=== PATIENT | female | born 1960 | race Caucasian/White ===

== ENCOUNTER 2020-07-27 13:21 | Outpatient (REF) | payer MEDICARE, OTHER, SELFPAY ==
[2020-07-27 14:40] LABS: MANUAL DIFF FLAG NO
[2020-07-27 14:47] LABS: Basophils Percent Auto 0.4 % (0-2); Eosinophils Absolute Auto 0.1 X10*3/uL (0.0-0.4); Eosinophils Percent Auto 1.5 % (0-4); Hematocrit 38.8 % (37-47); Imm Gran Abs Auto 0.01 X10*3/uL (0.00-0.03); Imm Gran Pct Auto 0.1 % (0.0-0.4); Lymphocytes Absolute Auto 2.6 X10*3/uL (1.2-4.9); Lymphocytes Percent Auto 36.5 % (20-40); Mean Corpuscular HGB Conc 33.5 g/dl (31.0-35.0); Mean Corpuscular Hemoglobin 30.4 pg (27.0-33.0); Mean Corpuscular Volume 90.7 fL (80-98); Mean Platelet Volume 8.7 fL (9.4-12.3); Monocytes Absolute Auto 0.7 X10*3/uL (0.1-1.2); Neutrophils Absolute Auto 3.7 X10*3/uL (2.0-8.3); Neutrophils Percent Auto 51.5 % (45-73); Platelet Count 352 X10*3/uL (160-400); Red Blood Count 4.28 X10*6/uL (4.20-5.50); White Blood Count 7.1 X10*3/uL (4.8-10.8)
[2020-07-27 15:11] LABS: Alanine Aminotransferase 65 U/L (0-31); Albumin Level 4.1 g/dL (3.5-5.0); Alkaline Phosphatase 145 U/L (39-117); Anion Gap 14 (12-20); Aspartate Amino Transferase 139 U/L (5-31); Bilirubin Total 0.7 mg/dL (0.0-1.0); Blood Urea Nitrogen 6 mg/dL (9-16); Calcium 8.4 mg/dL (8.4-10.2); Carbon Dioxide 31 mmol/L (22-29); Chloride 95 mmol/L (96-108); Cholesterol 156 mg/dL; Estimated Glomerular Filt Rate > 60; Glucose Random 92 mg/dL (60-115); HDL Cholesterol 52 mg/dL; Potassium 2.9 mmol/l (3.3-5.1); Sodium 137 mmol/L (135-145); Total Protein 6.8 g/dL (6.5-8.0); Triglycerides 429 mg/dL
[2020-07-28 08:23] LABS: ~HepC Num1 0.06 S/CO (0.00-0.79); ~Hepatitis C Antibody Nonreactive (Nonreactive)
== END 2020-07-27 13:22 | disposition home or self-care (01) ==
LOC: HO.LAB 13:21
PROVIDERS: PCP Internal Medicine; Visit Provider Internal Medicine
DX: F10.11 Alcohol abuse, in remission (principal); R74.01 Elevation of levels of liver transaminase levels; F17.200 Nicotine dependence, unspecified, uncomplicated; R10.33 Periumbilical pain
CPT/HCPCS: 36415; 80053; 80061; 85025; 86803

== ENCOUNTER 2020-08-17 13:00 | Outpatient (REF) | payer MEDICARE, OTHER, SELFPAY ==
--- NOTE | 2020-08-17 13:05 | CT_ITS ---
EXAMINATION: CT HEAD WITHOUT CONTRAST CLINICAL INFORMATION: Headache. COMPARISON: None TECHNIQUE: Contiguous axial imaging was performed from the skull base to vertex without intravenous administration of contrast. This CT examination was performed using dose optimization techniques as appropriate, variously including the following: *Automated exposure control *Adjustment of mA and/or kV according to patient size (this includes techniques or standardized protocols for targeted exams where dose is matched to indication/reason for exam; i.e. extremities or head) *Use of iterative reconstruction technique DLP: 620 mGy-cm FINDINGS: There is no evidence of acute intracranial hemorrhage or territorial infarction. No abnormal mass effect or midline shift is seen. Vivas to white matter differentiation is well preserved. No extra-axial fluid collections are identified. The ventricles are normal in size. There is no abnormal attenuation within the brain parenchyma. The osseous structures and soft tissues are normal. The mastoid air cells and visualized portions of the paranasal sinuses are well aerated. CT/CT head/brain wo con IMPRESSION: No acute intracranial process seen.
== END 2020-08-17 13:01 | disposition home or self-care (01) ==
LOC: HO.CT 13:00
PROVIDERS: Visit Provider Internal Medicine
DX: R51.9 Headache, unspecified (principal)
CPT/HCPCS: 70450

== ENCOUNTER 2020-08-23 14:42 | Outpatient (REF) | payer MEDICARE, OTHER, SELFPAY ==
[2020-08-23 16:16] LABS: Alanine Aminotransferase 75 U/L (0-31); Albumin Level 4.5 g/dL (3.5-5.0); Alkaline Phosphatase 189 U/L (39-117); Anion Gap 15 (12-20); Aspartate Amino Transferase 234 U/L (5-31); Bilirubin Total 0.8 mg/dL (0.0-1.0); Blood Urea Nitrogen 7 mg/dL (9-16); Calcium 8.5 mg/dL (8.4-10.2); Carbon Dioxide 28 mmol/L (22-29); Chloride 94 mmol/L (96-108); Cholesterol 224 mg/dL; Estimated Glomerular Filt Rate > 60; Glucose Random 105 mg/dL (60-115); HDL Cholesterol 47 mg/dL; Potassium 3.6 mmol/l (3.3-5.1); Sodium 133 mmol/L (135-145); Total Protein 7.4 g/dL (6.5-8.0); Triglycerides 1143 mg/dL
== END 2020-08-23 14:43 | disposition home or self-care (01) ==
LOC: HO.LAB 14:42
PROVIDERS: PCP Internal Medicine; Visit Provider Internal Medicine
DX: E78.1 Pure hyperglyceridemia (principal); E87.6 Hypokalemia; F10.159 Alcohol abuse with alcohol-induced psychotic disorder, unspecified; R11.2 Nausea with vomiting, unspecified; R51.9 Headache, unspecified
CPT/HCPCS: 36415; 80053; 80061

== ENCOUNTER 2020-10-12 13:26 | Emergency (ER) | payer MEDICARE, OTHER, SELFPAY ==
--- NOTE | ~2020-10-12 | US_ITS ---
EXAMINATION: US ABDOMEN COMPLETE CLINICAL INFORMATION: Abdominal pain. COMPARISON: 03/25/2020 CT scan TECHNIQUE: Real-time imaging of the abdominal viscera. FINDINGS: PANCREAS: Normal. ABDOMINAL AORTA: The proximal, mid, and distal segments are normal in caliber. INFERIOR VENA CAVA: Visualized portions are normal. LIVER: Diffuse fatty infiltration of the liver but no focal hepatic lesion The liver is normal in size. The liver contour is normal. No focal hepatic lesion. There is no intrahepatic biliary duct dilatation seen. GALLBLADDER: Status post cholecystectomy. COMMON BILE DUCT: Prominent in caliber measuring 1.1 cm in diameter. RIGHT KIDNEY: Normal. No hydronephrosis. No renal calculi or focal parenchymal lesions. The kidney measures 10.9 cm in maximum dimension. LEFT KIDNEY: Normal. No hydronephrosis. No renal calculi or focal parenchymal lesions. The kidney measures 10.2 cm in maximum dimension. SPLEEN: Normal. The spleen measures 8.9 cm in maximum dimension. FREE FLUID: None. US/US abdomen complete IMPRESSION: Diffuse fatty infiltration the liver but no focal hepatic lesion. Common bile duct measures up to 1.1 cm possibly related to patient's postcholecystectomy status.
[2020-10-12 13:30] VITALS: BP 160/100; PULSE 93; RESP 16; TEMP 37.1; O2SAT 98; BMI 21.6
--- NOTE | 2020-10-12 15:54 | ED.ABDPAIN ---
HPI - Abdominal Pain General Chief Complaint: Abdominal Pain <Violeta Arteaga PA-C - Last Filed: 10/12/20 21:24> Stated Complaint: ABD PAIN <ZACHARY Colon Last Filed: 10/12/20 21:24> Time Seen by Provider: 10/12/20 15:34 <ZACHARY Colon Last Filed: 10/12/20 21:24> Source: patient <ZACHARY Colon Last Filed: 10/12/20 21:24> Mode of arrival: ambulatory <ZACHARY Colon Last Filed: 10/12/20 21:24> Limitations: no limitations <ZACHARY Colon Last Filed: 10/12/20 21:24> History of Present Illness HPI narrative: Patient is a 60-year-old female with a past medical history of alcohol use, alcoholic fatty liver, hyperglyceridemia, alcoholic polyneuropathy, Ramona-Caro tear who comes in to the ED complaining of months of nonbloody, not black diarrhea. She also endorses a bloating, nausea and hair loss. She denies vomiting and fevers. She was sent to the emergency department by Dr. Caro, her GI doctor. Patient reports having a colonoscopy 1 year ago which was normal <ZACHARY Colon Last Filed: 10/12/20 21:24> MD elicited complaint: abdominal pain <ZACHARY Colon Last Filed: 10/12/20 21:24> Related Data Home Medications: Previous Rx's Medication Instructions Recorded dicyclomine See Rx Instructions .ROUTE 10/12/20 .COMPLEX PRN #60 cap <ZACHARY Colon Last Filed: 10/12/20 21:24> Allergies/Adverse Reactions: Allergies Allergy/AdvReac Type Severity Reaction Status Date / Time levofloxacin [From LEVAQUIN] Allergy Unknown THROAT Verified 10/12/20 13:35 SWELLS mushroom AdvReac Mild STOMACH Verified 10/12/20 13:35 UPSET <ZACHARY Colon Last Filed: 10/12/20 21:24> Review of Systems Review of Systems Yes all other systems are reviewed and are negative <Violeta Arteaga PA-C - Last Filed: 10/12/20 21:24> Physical Exam Vital Signs: Vital Signs: Last Vital Signs Temp 98 F 10/12/20 20:00 Pulse 88 10/12/20 20:00 Resp 16 10/12/20 20:00 BP 137/88 10/12/20 20:00 Pulse Ox 99 10/12/20 20:00 Body Mass Index 21.6 <Violeta Arteaga PA-C - Last Filed: 10/12/20 21:24> Vital Signs: Last Vital Signs Temp 98 F 10/12/20 20:00 Pulse 88 10/12/20 20:00 Resp 16 10/12/20 20:00 BP 137/88 10/12/20 20:00 Pulse Ox 99 10/12/20 20:00 Body Mass Index 21.6 <Celestina Alexandra NP - Last Filed: 10/12/20 21:56> Const: General: cooperative, healthy appearing, comfortable, no acute distress and well developed <Violeta Arteaga PA-C - Last Filed: 10/12/20 21:24> Orientation/consciousness: patient oriented x3 <Violeta Arteaga PA-C - Last Filed: 10/12/20 21:24> Limitations: no limitations <Violeta Arteaga PA-C - Last Filed: 10/12/20 21:24> HENMT: Head: Yes normal to inspection <Violeta Arteaga PA-C - Last Filed: 10/12/20 21:24> Eyes: General: appearance normal, both eyes and all related structures <Violeta Arteaga PA-C - Last Filed: 10/12/20 21:24> Neck: Neck: Yes normal visual inspection and Yes full ROM <Violeta Arteaga PA-C - Last Filed: 10/12/20 21:24> Resp: Effort & Inspection: normal respiratory effort and able to speak in complete sentences <Violeta Arteaga PA-C - Last Filed: 10/12/20 21:24> Auscultation: clear to auscultation bilaterally <Violeta Arteaga PA-C - Last Filed: 10/12/20 21:24> Cardio: Rate: regular rate <Violeta Arteaga PA-C - Last Filed: 10/12/20 21:24> Rhythm: regular rhythm <Violeta Arteaga PA-C - Last Filed: 10/12/20 21:24> Heart sounds: normal S1 and S2 <Violeta Arteaga PA-C - Last Filed: 10/12/20 21:24> GI: Inspection: Yes normal to inspection <Violeta Arteaga PA-C - Last Filed: 10/12/20 21:24> Palpation (GI): Soft to palpation and Tenderness to palpation present (GI) (Diffuse pain but worse in the left lower quadrant) <Violeta Arteaga PA-C - Last Filed: 10/12/20 21:24> Auscultation: normal bowel sounds <Violeta Arteaga PA-C - Last Filed: 10/12/20 21:24> Skin: General skin exam: no rashes or lesions noted <Violeta Arteaga PA-C - Last Filed: 10/12/20 21:24> Neuro: General: patient oriented x3 <Violeta Arteaga PA-C - Last Filed: 10/12/20 21:24> Extrem: General: Yes normal to inspection <Violeta Arteaga PA-C - Last Filed: 10/12/20 21:24> Course Course Course Narrative: Pt is a 60-year-old female with a past medical history of alcohol use, alcoholic fatty liver, hyperglyceridemia, alcoholic polyneuropathy, Ramona-Caro tear who comes in to the ED complaining of months of nonbloody, not black diarrhea. Physical exam was unremarkable sans for mild diffuse abdominal pain, worse in the left lower quadrant. Labs are all within normal limits except potassium is 2.9, will replete, UA negative, US pending. 10/12/2020 9pm Sign out to Celestina Alexandra NP <Violeta Arteaga PA-C - Last Filed: 10/12/20 21:24> 9:55 p.m. potassium repleted, repeat potassium 4.2. Plan of care to discharge per prior providers plan. <Celestina Alexandra NP - Last Filed: 10/12/20 21:56> MDM - Abdominal Pain Differential Diagnosis Differential diagnosis: Likely abdominal pain, acute appendicitis, constipation, diverticulitis, gastroenteritis and pancreatitis <Violeta Arteaga PA-C - Last Filed: 10/12/20 21:24> Lab Data Attestation: I reviewed the patient's lab results. <Violeta Arteaga PA-C - Last Filed: 10/12/20 21:24> Result diagrams: : 10/12/20 16:08 10/12/20 20:09 <Violeta Arteaga PA-C - Last Filed: 10/12/20 21:24> Labs: Lab Results 10/12/20 10/12/20 10/12/20 Range/Units 16:08 16:08 16:08 WBC 7.2 (4.8-10.8) X10*3/uL RBC 3.97 L (4.20-5.50) X10*6/uL Hgb 12.8 (12.0-16.0) g/dl Hct 37.6 (37-47) % MCV 94.7 (80-98) fL MCH 32.2 (27.0-33.0) pg MCHC 34.0 (31.0-35.0) g/dl RDW 13.9 (11.0-16.0) % Plt Count 349 (160-400) X10*3/uL MPV 8.5 L (9.4-12.3) fL Immature Gran % (Auto) 0.1 (0.0-0.4) % Neut % (Auto) 59.3 (45-73) % Lymph % (Auto) 27.6 (20-40) % [place] % (Auto) 11.5 H (2-11) % Eos % (Auto) 1.1 (0-4) % Baso % (Auto) 0.4 (0-2) % Lymph # (Auto) 2.0 (1.2-4.9) X10*3/uL [place] # (Auto) 0.8 (0.1-1.2) X10*3/uL Eos # (Auto) 0.1 (0.0-0.4) X10*3/uL Baso # (Auto) 0.0 (0.0-0.2) X10*3/uL Abs Immat Gran (auto) 0.01 (0.00-0.03) X10*3/uL Absolute Neuts (auto) 4.2 (2.0-8.3) X10*3/uL Absolute Nucleated RBC 0.000 (0.0-0.012) X10*3/uL Nucleated RBC % (auto) 0.0 (0.0-0.2) /100WBC Hold Blue Top SEE NOTE Sodium 136 (135-145) mmol/L Potassium 2.9 L (3.3-5.1) mmol/L Chloride 98 (96-108) mmol/L Carbon Dioxide 27 (22-29) mmol/L Anion Gap 14 (12-20) BUN 9 (9-16) mg/dL Creatinine 0.73 (0.5-1.4) mg/dL Estim Creat Clear Calc 72.8 Estimated GFR > 60 Random Glucose 101 (60-115) mg/dL Calcium 8.7 (8.4-10.2) mg/dL Total Bilirubin 1.0 (0.0-1.0) mg/dL AST 69 H (5-31) U/L ALT 35 H (0-31) U/L Alkaline Phosphatase 90 D (39-117) U/L Total Protein 7.0 (6.5-8.0) g/dL Albumin 4.3 (3.5-5.0) g/dL Triglycerides mg/dL Cholesterol mg/dL LDL Cholesterol, Calc mg/dl HDL Cholesterol mg/dL Amylase (28-100) U/L Lipase 29 (8-78) U/L TSH 2.49 (0.32-4.0) uIU/mL Urine Color Urine Appearance Urine pH (5.0-8.0) Ur Specific [place] (1.005-1.025) Urine Protein (NEG-TRACE) MG/DL Urine Glucose (UA) (NEG) MG/DL Urine Ketones (NEG) MG/DL Urine Blood (NEG) Urine Nitrite (NEG) Ur Leukocyte Esterase (NEG) 10/12/20 10/12/20 10/12/20 Range/Units 16:19 20:09 20:09 WBC (4.8-10.8) X10*3/uL RBC (4.20-5.50) X10*6/uL Hgb (12.0-16.0) g/dl Hct (37-47) % MCV (80-98) fL MCH (27.0-33.0) pg MCHC (31.0-35.0) g/dl RDW (11.0-16.0) % Plt Count (160-400) X10*3/uL MPV (9.4-12.3) fL Immature Gran % (Auto) (0.0-0.4) % Neut % (Auto) (45-73) % Lymph % (Auto) (20-40) % [place] % (Auto) (2-11) % Eos % (Auto) (0-4) % Baso % (Auto) (0-2) % Lymph # (Auto) (1.2-4.9) X10*3/uL [place] # (Auto) (0.1-1.2) X10*3/uL Eos # (Auto) (0.0-0.4) X10*3/uL Baso # (Auto) (0.0-0.2) X10*3/uL Abs Immat Gran (auto) (0.00-0.03) X10*3/uL Absolute Neuts (auto) (2.0-8.3) X10*3/uL Absolute Nucleated RBC (0.0-0.012) X10*3/uL Nucleated RBC % (auto) (0.0-0.2) /100WBC Hold Blue Top Sodium 139 (135-145) mmol/L Potassium 4.2 D (3.3-5.1) mmol/L Chloride 102 (96-108) mmol/L Carbon Dioxide 26 (22-29) mmol/L Anion Gap 15 (12-20) BUN 8 L (9-16) mg/dL Creatinine 0.66 (0.5-1.4) mg/dL Estim Creat Clear Calc 80.5 Estimated GFR > 60 Random Glucose 82 (60-115) mg/dL Calcium 8.8 (8.4-10.2) mg/dL Total Bilirubin (0.0-1.0) mg/dL AST (5-31) U/L ALT (0-31) U/L Alkaline Phosphatase (39-117) U/L Total Protein (6.5-8.0) g/dL Albumin (3.5-5.0) g/dL Triglycerides 97 mg/dL Cholesterol 204 mg/dL LDL Cholesterol, Calc 89 mg/dl HDL Cholesterol 96 D mg/dL Amylase 39 (28-100) U/L Lipase (8-78) U/L TSH (0.32-4.0) uIU/mL Urine Color YELLOW Urine Appearance CLEAR Urine pH 5.5 (5.0-8.0) Ur Specific [place] 1.015 (1.005-1.025) Urine Protein NEG (NEG-TRACE) MG/DL Urine Glucose (UA) NEG (NEG) MG/DL Urine Ketones NEG (NEG) MG/DL Urine Blood NEG (NEG) Urine Nitrite NEG (NEG) Ur Leukocyte Esterase NEG (NEG) <Violeta Arteaag PA-C - Last Filed: 10/12/20 21:24> Lab Results 10/12/20 10/12/20 10/12/20 Range/Units 16:08 16:08 16:08 WBC 7.2 (4.8-10.8) X10*3/uL RBC 3.97 L (4.20-5.50) X10*6/uL Hgb 12.8 (12.0-16.0) g/dl Hct 37.6 (37-47) % MCV 94.7 (80-98) fL MCH 32.2 (27.0-33.0) pg MCHC 34.0 (31.0-35.0) g/dl RDW 13.9 (11.0-16.0) % Plt Count 349 (160-400) X10*3/uL MPV 8.5 L (9.4-12.3) fL Immature Gran % (Auto) 0.1 (0.0-0.4) % Neut % (Auto) 59.3 (45-73) % Lymph % (Auto) 27.6 (20-40) % [place] % (Auto) 11.5 H (2-11) % Eos % (Auto) 1.1 (0-4) % Baso % (Auto) 0.4 (0-2) % Lymph # (Auto) 2.0 (1.2-4.9) X10*3/uL [place] # (Auto) 0.8 (0.1-1.2) X10*3/uL Eos # (Auto) 0.1 (0.0-0.4) X10*3/uL Baso # (Auto) 0.0 (0.0-0.2) X10*3/uL Abs Immat Gran (auto) 0.01 (0.00-0.03) X10*3/uL Absolute Neuts (auto) 4.2 (2.0-8.3) X10*3/uL Absolute Nucleated RBC 0.000 (0.0-0.012) X10*3/uL Nucleated RBC % (auto) 0.0 (0.0-0.2) /100WBC Hold Blue Top SEE NOTE Sodium 136 (135-145) mmol/L Potassium 2.9 L (3.3-5.1) mmol/L Chloride 98 (96-108) mmol/L Carbon Dioxide 27 (22-29) mmol/L Anion Gap 14 (12-20) BUN 9 (9-16) mg/dL Creatinine 0.73 (0.5-1.4) mg/dL Estim Creat Clear Calc 72.8 Estimated GFR > 60 Random Glucose 101 (60-115) mg/dL Calcium 8.7 (8.4-10.2) mg/dL Total Bilirubin 1.0 (0.0-1.0) mg/dL AST 69 H (5-31) U/L ALT 35 H (0-31) U/L Alkaline Phosphatase 90 D (39-117) U/L Total Protein 7.0 (6.5-8.0) g/dL Albumin 4.3 (3.5-5.0) g/dL Triglycerides mg/dL Cholesterol mg/dL LDL Cholesterol, Calc mg/dl HDL Cholesterol mg/dL Amylase (28-100) U/L Lipase 29 (8-78) U/L TSH 2.49 (0.32-4.0) uIU/mL Urine Color Urine Appearance Urine pH (5.0-8.0) Ur Specific [place] (1.005-1.025) Urine Protein (NEG-TRACE) MG/DL Urine Glucose (UA) (NEG) MG/DL Urine Ketones (NEG) MG/DL Urine Blood (NEG) Urine Nitrite (NEG) Ur Leukocyte Esterase (NEG) 10/12/20 10/12/20 10/12/20 Range/Units 16:19 20:09 20:09 WBC (4.8-10.8) X10*3/uL RBC (4.20-5.50) X10*6/uL Hgb (12.0-16.0) g/dl Hct (37-47) % MCV (80-98) fL MCH (27.0-33.0) pg MCHC (31.0-35.0) g/dl RDW (11.0-16.0) % Plt Count (160-400) X10*3/uL MPV (9.4-12.3) fL Immature Gran % (Auto) (0.0-0.4) % Neut % (Auto) (45-73) % Lymph % (Auto) (20-40) % [place] % (Auto) (2-11) % Eos % (Auto) (0-4) % Baso % (Auto) (0-2) % Lymph # (Auto) (1.2-4.9) X10*3/uL [place] # (Auto) (0.1-1.2) X10*3/uL Eos # (Auto) (0.0-0.4) X10*3/uL Baso # (Auto) (0.0-0.2) X10*3/uL Abs Immat Gran (auto) (0.00-0.03) X10*3/uL Absolute Neuts (auto) (2.0-8.3) X10*3/uL Absolute Nucleated RBC (0.0-0.012) X10*3/uL Nucleated RBC % (auto) (0.0-0.2) /100WBC Hold Blue Top Sodium 139 (135-145) mmol/L Potassium 4.2 D (3.3-5.1) mmol/L Chloride 102 (96-108) mmol/L Carbon Dioxide 26 (22-29) mmol/L Anion Gap 15 (12-20) BUN 8 L (9-16) mg/dL Creatinine 0.66 (0.5-1.4) mg/dL Estim Creat Clear Calc 80.5 Estimated GFR > 60 Random Glucose 82 (60-115) mg/dL Calcium 8.8 (8.4-10.2) mg/dL Total Bilirubin (0.0-1.0) mg/dL AST (5-31) U/L ALT (0-31) U/L Alkaline Phosphatase (39-117) U/L Total Protein (6.5-8.0) g/dL Albumin (3.5-5.0) g/dL Triglycerides 97 mg/dL Cholesterol 204 mg/dL LDL Cholesterol, Calc 89 mg/dl HDL Cholesterol 96 D mg/dL Amylase 39 (28-100) U/L Lipase (8-78) U/L TSH (0.32-4.0) uIU/mL Urine Color YELLOW Urine Appearance CLEAR Urine pH 5.5 (5.0-8.0) Ur Specific [place] 1.015 (1.005-1.025) Urine Protein NEG (NEG-TRACE) MG/DL Urine Glucose (UA) NEG (NEG) MG/DL Urine Ketones NEG (NEG) MG/DL Urine Blood NEG (NEG) Urine Nitrite NEG (NEG) Ur Leukocyte Esterase NEG (NEG) <Celestina Alexandra NP - Last Filed: 10/12/20 21:56> Imaging Data US - abdomen: Attestation: I personally reviewed and interpreted this imaging study as follows: <Violeta Arteaga PA-C - Last Filed: 10/12/20 21:24> My impression: No acute processes <Violeta Arteaga PA-C - Last Filed: 10/12/20 21:24> Radiologist's impression: [address] [id number] ReportSigned Patient: Avani Anderson LMR#: [id number]: [id number]:[id number]/Sex: 60 / FADM Date: 10/12/20Loc: [address]: Ordering Physician: Violeta Arteaga PA-C Date of Service: 10/12/20 Procedure(s): US abdomen complete Accession Number(s): [id number] cc: Violeta Arteaga PA-C~ EXAMINATION: US ABDOMEN COMPLETE CLINICAL INFORMATION: Abdominal pain. COMPARISON: 03/25/2020 CT scan TECHNIQUE: Real-time imaging of the abdominal viscera. FINDINGS: PANCREAS: Normal. ABDOMINAL AORTA: The proximal, mid, and distal segments are normal in caliber. INFERIOR VENA CAVA: Visualized portions are normal. LIVER: Diffuse fatty infiltration of the liver but no focal hepatic lesion The liver is normal in size. The liver contour is normal. No focal hepatic lesion. There is no intrahepatic biliary duct dilatation seen. GALLBLADDER: Status post cholecystectomy. COMMON BILE DUCT: Prominent in caliber measuring 1.1 cm in diameter. RIGHT KIDNEY: Normal. No hydronephrosis. No renal calculi or focal parenchymal lesions. The kidney measures 10.9 cm in maximum dimension. LEFT KIDNEY: Normal. No hydronephrosis. No renal calculi or focal parenchymal lesions. The kidney measures 10.2 cm in maximum dimension. SPLEEN: Normal. The spleen measures 8.9 cm in maximum dimension. FREE FLUID: None. US/US abdomen complete IMPRESSION: Diffuse fatty infiltration the liver but no focal hepatic lesion. Common bile duct measures up to 1.1 cm possibly related to patient's postcholecystectomy status. Dictated By:JANIS OLIVER MDSigned By:<Electronically signed by JANIS OLIVER MD in [place]>10/12/20 1803 DD/ 1553TD/TT: Radiology Supervisor: FLAVIA <Violeta Arteaga PA-C - Last Filed: 10/12/20 21:24> ECG Data Attestation: I personally reviewed and interpreted this ECG as follows: <ZACHARY Colon Last Filed: 10/12/20 21:24> ECG interpretation date: 10/12/20 <ZACHARY Colon Last Filed: 10/12/20 21:24> ECG interpretation time: 18:38 <ZACHARY Colon Last Filed: 10/12/20 21:24> Prior ECG tracings: not available for review <Violeta Arteaga PA-C - Last Filed: 10/12/20 21:24> Interpretation: Sinus rhythm with PACs <ZACHARY Colon Last Filed: 10/12/20 21:24> Discharge Plan Discharge Clinical Impression: Hypokalemia due to excessive gastrointestinal loss of potassium, Abdominal discomfort, generalized <ZACHARY Colon Last Filed: 10/12/20 21:24> Patient Disposition: Home, Self-Care <ZACHARY Colon Last Filed: 10/12/20 21:24> Instructions: Irritable Bowel Syndrome (ED), Hypokalemia (ED) <Violeta Arteaga PA-C - Last Filed: 10/12/20 21:24> Additional Instructions: Please be sure to follow up with your PCP or GI doctor <Violeta Arteaga PA-C - Last Filed: 10/12/20 21:24> Prescriptions: New dicyclomine 10 mg capsule See Rx Instructions .ROUTE .COMPLEX PRN (Reason: abdominal discomfort) Qty: 60 RF: 0 <Violeta Arteaga PA-C - Last Filed: 10/12/20 21:24> Referrals: Milagros Gutierrez MD [Primary Care Provider] - 2 days <Violeta Arteaga PA-C - Last Filed: 10/12/20 21:24> Interventions: ED Discharge Assessment Last Done: 10/12/20 21:31 <Violeta Arteaga PA-C - Last Filed: 10/12/20 21:24> PMFSH Past Medical History Medical History: Medical History Anxiety Depression ETOH abuse Lower extremity surgery planned Seasonal allergies <Violeta Arteaga PA-C - Last Filed: 10/12/20 21:24> Surgical History: Surgical History Hx of cholecystectomy <Violeta Arteaga PA-C - Last Filed: 10/12/20 21:24> Social History Social History: Social History Alcohol intake: current Alcohol intake frequency: 3 or more drinks per day Alcohol type: hard liquor Smoking Status: Current every day smoker Use of substances other than those prescribed or required for medical reasons: No Advance Directives: No Advance Directives Information Provided: No <Violeta Arteaga PA-C - Last Filed: 10/12/20 21:24>
[2020-10-12 16:02] VITALS: BP 154/97; PULSE 95; RESP 18; O2SAT 97
[2020-10-12 16:16] LABS: MANUAL DIFF FLAG NO
[2020-10-12 16:17] LABS: Basophils Percent Auto 0.4 % (0-2); Eosinophils Absolute Auto 0.1 X10*3/uL (0.0-0.4); Eosinophils Percent Auto 1.1 % (0-4); Hematocrit 37.6 % (37-47); Hemoglobin 12.8 g/dl (12.0-16.0); Imm Gran Abs Auto 0.01 X10*3/uL (0.00-0.03); Imm Gran Pct Auto 0.1 % (0.0-0.4); Lymphocytes Percent Auto 27.6 % (20-40); Mean Corpuscular Hemoglobin 32.2 pg (27.0-33.0); Mean Corpuscular Volume 94.7 fL (80-98); Mean Platelet Volume 8.5 fL (9.4-12.3); Monocytes Absolute Auto 0.8 X10*3/uL (0.1-1.2); Monocytes Percent Auto 11.5 % (2-11); Neutrophils Absolute Auto 4.2 X10*3/uL (2.0-8.3); Neutrophils Percent Auto 59.3 % (45-73); Platelet Count 349 X10*3/uL (160-400); Red Blood Count 3.97 X10*6/uL (4.20-5.50); Red Cell Distribution Width 13.9 % (11.0-16.0); White Blood Count 7.2 X10*3/uL (4.8-10.8)
[2020-10-12 16:32] LABS: Glucose Urine UA NEG (NEG); Leukocyte Esterase Urine NEG (NEG); Nitrite Urine NEG (NEG); PH 5.5 (5.0-8.0); Specific Gravity - Urine 1.015 (1.005-1.025); Urine Blood NEG (NEG); Urine Ketones NEG (NEG); Urine Protein NEG (NEG-TRACE)
[2020-10-12 16:37] LABS: Appearance Urine CLEAR; Color Urine YELLOW
[2020-10-12 16:49] LABS: Alanine Aminotransferase 35 U/L (0-31); Alkaline Phosphatase 90 U/L (39-117); Anion Gap 14 (12-20); Aspartate Amino Transferase 69 U/L (5-31); Blood Urea Nitrogen 9 mg/dL (9-16); Calcium 8.7 mg/dL (8.4-10.2); Carbon Dioxide 27 mmol/L (22-29); Chloride 98 mmol/L (96-108); Creatinine Clr Calc Pharmacy 72.8; Estimated Glomerular Filt Rate > 60; Glucose Random 101 mg/dL (60-115); Lipase 29 U/L (8-78); Sodium 136 mmol/L (135-145)
[2020-10-12 17:08] LABS: TSH reflex Free T4 2.49 uIU/mL (0.32-4.0)
[2020-10-12 17:15] LABS: Albumin Level 4.3 g/dL (3.5-5.0)
[2020-10-12 17:34] LABS: Potassium 2.9 mmol/L (3.3-5.1)
--- NOTE | 2020-10-12 17:35 | ECG_ITS ---
Test Reason : ABDOMINAL PAIN Blood Pressure : / mmHG Vent. Rate : 080 BPM Atrial Rate : 080 BPM P-R Int : 156 ms QRS Dur : 068 ms QT Int : 402 ms P-R-T Axes : 074 046 050 degrees QTc Int : 463 ms Normal sinus rhythm Nonspecific ST abnormality Abnormal ECG When compared with ECG of 21-APR-2019 14:56, T wave inversion no longer evident in Inferior leads T wave amplitude has increased in Anterior leads Referred By: Violeta Arteaga Electronically Signed By:Darryl Wallace
[2020-10-12 18:03] VITALS: BP 145/80; PULSE 91; RESP 18; O2SAT 99
[2020-10-12] MEDS: Potassium Chloride Packet 20 MEQ PACKET 60 MEQ PO (18:07)
[2020-10-12] MEDS: Simethicone 80 MG TAB.CHEW 160 MG PO (18:07)
[2020-10-12 20:00] VITALS: BP 137/88; PULSE 88; RESP 16; TEMP 36.6; O2SAT 99
[2020-10-12] MEDS: Dicyclomine HCl 10 MG CAPSULE 20 MG PO (20:30)
[2020-10-12] MEDS: Ketorolac Tromethamine 15 MG/ML VIAL IV (20:31)
[2020-10-12 20:51] LABS: Amylase 39 U/L (28-100); Cholesterol 204 mg/dL; HDL Cholesterol 96 mg/dL; LDL Cholesterol Calculated 89 mg/dl; Triglycerides 97 mg/dL
[2020-10-12 20:52] LABS: Blood Urea Nitrogen 8 mg/dL (9-16); Calcium 8.8 mg/dL (8.4-10.2); Creatinine Clr Calc Pharmacy 80.5; Estimated Glomerular Filt Rate > 60; Glucose Random 82 mg/dL (60-115)
[2020-10-12 21:11] LABS: Anion Gap 15 (12-20); Carbon Dioxide 26 mmol/L (22-29); Chloride 102 mmol/L (96-108); Potassium 4.2 mmol/L (3.3-5.1); Sodium 139 mmol/L (135-145)
== END 2020-10-12 21:31 | disposition home or self-care (01) ==
PROVIDERS: Physician Assistant; Emergency Provider Emergency Medicine Emergency Medical Services; PCP Internal Medicine
DX: E87.5 Hyperkalemia (principal); K58.9 Irritable bowel syndrome, unspecified; R10.84 Generalized abdominal pain; R79.89 Other specified abnormal findings of blood chemistry; F17.200 Nicotine dependence, unspecified, uncomplicated; Z71.6 Tobacco abuse counseling; Z79.899 Other long term (current) drug therapy
CPT/HCPCS: 36415; 76700; 80048; 80053; 80061; 81003; 82150; 83690; 84443; 85025; 93005; 96360; 99284; J1885

== ENCOUNTER → 2020-11-03 13:51 | Outpatient (BNVA) | payer MEDICARE, OTHER, SELFPAY | PROVIDERS: PCP Internal Medicine; Visit Provider Physician Assistant | DX: M75.102 Unspecified rotator cuff tear or rupture of left shoulder, not specified as traumatic (principal); M12.812 Other specific arthropathies, not elsewhere classified, left shoulder | CPT/HCPCS: 20610; 99202; J1040 ==

== ENCOUNTER 2020-11-18 21:33 | Emergency (ER) | payer MEDICARE, OTHER, SELFPAY ==
--- NOTE | ~2020-11-18 | CT_ITS ---
EXAMINATION: CT ABDOMEN AND PELVIS WITH CONTRAST CLINICAL INFORMATION: Epigastric pain. COMPARISON: 03/25/2020 report only. TECHNIQUE: Contiguous axial thin section helical images of the abdomen and pelvis were performed following the administration of 85 mL of intravenous Omnipaque 3-50. The data set was reformatted in the coronal and sagittal planes and reviewed on an independent workstation. DLP: 425 mGy-cm. FINDINGS: The visualized lung bases are clear. The visualized portions of the heart are unremarkable. The liver is of normal size and attenuation without focal lesions nor intrahepatic biliary ductal dilation.. The patient is status post cholecystectomy. Surgical clips are identified. The spleen, pancreas, adrenal glands are unremarkable. Both kidneys are of normal size and attenuation without hydronephrosis or nephrolithiasis. Following the administration of IV contrast, prompt symmetric nephrograms are displayed. There is no abdominal free fluid. There is neither mesenteric nor retroperitoneal lymphadenopathy. Normal unopacified loops of small and large bowel are identified. A normal appendix is identified. There is no pelvic free fluid. The urinary bladder is unremarkable. There is neither pelvic nor inguinal lymphadenopathy. Bone windows: Neither sclerotic nor lytic bone lesions are identified. CT/CT abdomen pelvis w con IMPRESSION: No acute abdominal or pelvic inflammatory or infectious processes. Automated exposure control (Care Dose) Adjustment of the mA and/or kv according to patient size (this includes techniques or standardized protocols for targeted exams where dose is matched to indication / reason for exam; i.e. extremities or head).
[2020-11-18 21:41] VITALS: BP 162/103; PULSE 110; RESP 18; TEMP 36.7; O2SAT 95; BMI 21.2
[2020-11-18 22:04] LABS: MANUAL DIFF FLAG NO
[2020-11-18 22:07] LABS: Basophils Absolute Auto 0.1 X10*3/uL (0.0-0.2); Basophils Percent Auto 0.6 % (0-2); Eosinophils Absolute Auto 0.1 X10*3/uL (0.0-0.4); Eosinophils Percent Auto 1.1 % (0-4); Hematocrit 40.1 % (37-47); Hemoglobin 13.7 g/dl (12.0-16.0); Imm Gran Abs Auto 0.01 X10*3/uL (0.00-0.03); Imm Gran Pct Auto 0.1 % (0.0-0.4); Lymphocytes Absolute Auto 3.8 X10*3/uL (1.2-4.9); Lymphocytes Percent Auto 46.9 % (20-40); Mean Corpuscular HGB Conc 34.2 g/dl (31.0-35.0); Mean Corpuscular Hemoglobin 30.5 pg (27.0-33.0); Mean Corpuscular Volume 89.3 fL (80-98); Mean Platelet Volume 8.7 fL (9.4-12.3); Monocytes Absolute Auto 0.7 X10*3/uL (0.1-1.2); Monocytes Percent Auto 8.4 % (2-11); Neutrophils Absolute Auto 3.5 X10*3/uL (2.0-8.3); Neutrophils Percent Auto 42.9 % (45-73); Platelet Count 259 X10*3/uL (160-400); Red Blood Count 4.49 X10*6/uL (4.20-5.50); Red Cell Distribution Width 12.1 % (11.0-16.0); White Blood Count 8.1 X10*3/uL (4.8-10.8)
[2020-11-18 22:31] LABS: Ethanol 205 mg/dL
[2020-11-18 22:40] LABS: Alanine Aminotransferase 77 U/L (0-31); Albumin Level 4.1 g/dL (3.5-5.0); Alkaline Phosphatase 159 U/L (39-117); Anion Gap 15 (12-20); Aspartate Amino Transferase 195 U/L (5-31); Bilirubin Direct 0.2 mg/dL (0.0-0.5); Bilirubin Total 0.7 mg/dL (0.0-1.0); Blood Urea Nitrogen 8 mg/dL (9-16); Carbon Dioxide 30 mmol/L (22-29); Chloride 98 mmol/L (96-108); Creatinine Clr Calc Pharmacy 71.8; Estimated Glomerular Filt Rate > 60; Glucose Random 109 mg/dL (60-115); Potassium 3.1 mmol/L (3.3-5.1); Sodium 140 mmol/L (135-145); Total Protein 7.1 g/dL (6.5-8.0)
[2020-11-18 22:50] LABS: Lipase 100 U/L (8-78)
--- NOTE | 2020-11-18 23:17 | PC.NURSE ---
PT TO ROOM WITH C/O MID ABD PAIN AND NAUSEA WHICH STARTED TODAY. PT AWAITING FOR MD FOR EVAL. IV PLACED TO LAC, LABS DRAWN IN WR. NS UP AND RUNNING, SITE INTACT. WILL CONTINUE TO MONITOR PT.
[2020-11-18 23:24] VITALS: BP 139/103; PULSE 82; RESP 15
[2020-11-19] MEDS: 0.9 % Sodium Chloride 1,000 ML 999 ML IV (00:07)
--- NOTE | 2020-11-19 00:07 | ED.GENADULT ---
HPI - General Adult General Chief complaint: Nausea/Vomiting/Diarrhea <VERNA Alfonso Last Filed: 11/19/20 02:42> Stated complaint: Throwing up blood <VERNA Alfonso Last Filed: 11/19/20 02:42> Time Seen by Provider: 11/18/20 23:52 <VERNA Alfonso Last Filed: 11/19/20 02:42> Source: patient <VERNA Alfonso Last Filed: 11/19/20 02:42> Mode of arrival: ambulatory <VERNA Alfonso Last Filed: 11/19/20 02:42> Limitations: no limitations <VERNA Alfonso Last Filed: 11/19/20 02:42> History of Present Illness HPI narrative: Patient presents to the ED complaining abdominal pain an episode of specks of blood after eating food. Patient admits to drinking lot of alcohol also. Patient states burning sensation abdomen going up to esophagus. Patient denies any rectal bleeding. Patient denies recent trauma to the abdomen. Patient denies have large emesis consisting of blood. <VERNA Alfonso Last Filed: 11/19/20 02:42> Related Data Home medications: Previous Rx's Medication Instructions Recorded dicyclomine See Rx Instructions .ROUTE 10/12/20 .COMPLEX PRN #60 cap sucralfate 1 g PO BID 10 Days #20 tab 11/19/20 <VERNA Alfonso Last Filed: 11/19/20 02:42> Allergies/adverse reactions: Allergies Allergy/AdvReac Type Severity Reaction Status Date / Time levofloxacin [From LEVAQUIN] Allergy Unknown THROAT Verified 11/03/20 13:54 SWELLS mushroom AdvReac Mild STOMACH Verified 11/03/20 13:54 UPSET <VERNA Alfonso Last Filed: 11/19/20 02:42> Review of Systems Review of Systems: Yes all other systems are reviewed and are negative <VERNA Alfonso Last Filed: 11/19/20 02:42> Constitutional: Constitutional: Reports as per HPI and Reports no additional constitutional complaints <VERNA Alfonso Last Filed: 11/19/20 02:42> Eyes: Eyes: Reports as per HPI and Reports no additional eye complaints <VERNA Alfonso Last Filed: 11/19/20 02:42> ENT: Reports system reviewed and no additional complaints, except as documented and Reports as per HPI <VERNA Alfonso Last Filed: 11/19/20 02:42> Cardiovascular: Cardiovascular: Reports as per HPI and Reports no additional cardiovascular complaints <VERNA Alofnso Last Filed: 11/19/20 02:42> Respiratory: Respiratory: Reports as per HPI and Reports no additional respiratory complaints <VERNA Alfonso Last Filed: 11/19/20 02:42> Gastrointestinal: Gastrointestinal: Reports as per HPI, Reports no additional gastrointestinal complaints, Reports abdominal pain, Reports heartburn and Reports vomiting <VERNA Alfonso Last Filed: 11/19/20 02:42> Genitourinary: Genitourinary: Reports no additional female genitourinary complaints and Reports as per HPI <VERNA Alfonso Last Filed: 11/19/20 02:42> Musculoskeletal: Musculoskeletal: Reports no additional musculoskeletal complaints and Reports as per HPI <VERNA Alfonso Last Filed: 11/19/20 02:42> Neurologic: Reports system reviewed and no additional complaints, except as documented and Reports as per HPI <VERNA Alfonso Last Filed: 11/19/20 02:42> Psychiatric: Psychiatric: Reports no additional psychiatric complaints and Reports as per HPI <VERNA Alfonso Last Filed: 11/19/20 02:42> Comments: Alcohol on her breath <VERNA Alfonso Last Filed: 11/19/20 02:42> [facility] Past Medical History Medical History: Medical History Anxiety Depression ETOH abuse Lower extremity surgery planned Seasonal allergies <VERNA Alfonso Last Filed: 11/19/20 02:42> Surgical History: Surgical History Hx of cholecystectomy <VERNA Alfonso Last Filed: 11/19/20 02:42> Social History Social History: Social History (Updated 11/03/20 @ 13:55 by NORMA Cantrell) Alcohol intake: current Alcohol intake frequency: 3 or more drinks per day Alcohol type: hard liquor Smoking Status: Current every day smoker Advance Directives: No Advance Directives Information Provided: No Current occupational status: retired <VERNA Alfonso - Last Filed: 11/19/20 02:42> Physical Exam Vital Signs: Vital Signs: Last Vital Signs Temp 98.0 F 11/18/20 21:41 Pulse 82 11/18/20 23:24 Resp 11/18/20 23:24 BP 139/103 H 11/18/20 23:24 Pulse Ox 95 11/18/20 21:41 Body Mass Index 21.2 <VERNA Alfonso - Last Filed: 11/19/20 02:42> Vital Signs: Last Vital Signs Temp 98.0 F 11/18/20 21:41 Pulse 82 11/18/20 23:24 Resp 11/18/20 23:24 BP 139/103 H 11/18/20 23:24 Pulse Ox 95 11/18/20 21:41 Body Mass Index 21.2 <Senait Malcolm MD - Last Filed: 11/19/20 04:51> Const: General: cooperative, healthy appearing, comfortable, no acute distress, well developed, alert and awake <VERNA Alfonso - Last Filed: 11/19/20 02:42> Orientation/consciousness: patient oriented x3 <VERNA Alfonso - Last Filed: 11/19/20 02:42> HENMT: Other: Oral cavity negative for any staining of blood or blood-tinged saliva <VERNA Alfonso Last Filed: 11/19/20 02:42> Head: Yes normal to inspection, Yes No palpable skull fracture present, Yes normocephalic and Yes atraumatic <VERNA Alfonso Last Filed: 11/19/20 02:42> Eyes: General: appearance normal, both eyes and all related structures <VERNA Alfonso Last Filed: 11/19/20 02:42> Neck: Neck: Yes normal visual inspection, Yes full ROM, Yes no lymphadenopathy, Yes no meningeal signs, Yes trachea midline, Yes supple and No tender <VERNA Alfonso Last Filed: 11/19/20 02:42> Chest: Chest palpation & inspection: normal inspection of the chest and normal palpation of entire chest wall <VERNA Alfonso Landry Last Filed: 11/19/20 02:42> Resp: Effort & Inspection: normal respiratory effort and able to speak in complete sentences <VERNA Alfonso Last Filed: 11/19/20 02:42> Auscultation: clear to auscultation bilaterally <VERNA Alfonso Landry Last Filed: 11/19/20 02:42> GI: Inspection: Yes normal to inspection and No abdominal wall ecchymosis <VERNA Alfonso Last Filed: 11/19/20 02:42> Palpation (GI): Soft to palpation, not firm, Tenderness to palpation present (GI) in the epigastrum; not at McBurney's point, not periumbilically, not suprapubicly, Pittman's sign negative, obturator sign negative, psoas sign negative, with no rebound tenderness and Rovsing's sign negative, no guarding and not rigid <VERNA Alfonso Landry Last Filed: 11/19/20 02:42> : Other: Patient refused rectal <VERNA Alfonso Last Filed: 11/19/20 02:42> General: No CVA tenderness and Yes no CVA tenderness <VERNA Alfonso Landry Last Filed: 11/19/20 02:42> Back/Spine/Pelvis: Back: no CVA tenderness, No CVA tenderness and No back tenderness <VERNA Alfonso Last Filed: 11/19/20 02:42> Skin: General skin exam: no rashes or lesions noted and elasticity normal <VERNA Alfonso Last Filed: 11/19/20 02:42> Neuro: General: patient oriented x3, no meningeal signs and CN's II-XI intact bilaterally <VERNA Alfonso Landry Last Filed: 11/19/20 02:42> Cranial nerves: Yes CN's II-XII intact bilaterally <VERNA Alfonso Last Filed: 11/19/20 02:42> Extrem: General: Yes normal to inspection and Yes full ROM <VERNA Alfonso Last Filed: 11/19/20 02:42> Psych: Appearance: grossly normal, well kempt and not disheveled <VERNA Alfonso - Last Filed: 11/19/20 02:42> Course Course Course Narrative: History physical exam indicate alcohol gastritis. Not suspecting Ramona-Caro tear or Boerhaave syndrome. Patient not actively vomiting in the ED. will do labs and give GI cocktail. Patient refused rectal exam. Will send alcohol level. <VERNA Alfonso - Last Filed: 11/19/20 02:42> I received sign-out from VERNA Leon. Patient's CT scan shows no acute pathology. At this time, I discussed the labs and imaging with the patient, states that she feels better. Patient being discharged. <Senait Malcolm MD - Last Filed: 11/19/20 04:51> Reevaluation(s) Reevaluation #1: Alcohol level 205. After receiving GI cocktail patient states still having epigastric pain. Lipase elevated at 100. Elevated liver enzyme. Will send patient for CT scan to check for pancreatitis. Sucralfate added and morphine.Case signed out to Dr. Malcolm <VERNA Alfonso - Last Filed: 11/19/20 02:42> Medical Decision Making MDM Narrative Medical decision making narrative: ALcoholoc gastritis <VERNA Alfonso - Last Filed: 11/19/20 02:42> Lab Data Result diagrams: : 11/18/20 21:57 11/18/20 21:57 <VERNA Alfonso - Last Filed: 11/19/20 02:42> Labs: Lab Results 11/18/20 11/18/20 11/18/20 Range/Units 21:57 21:57 21:57 WBC 8.1 (4.8-10.8) X10*3/uL RBC 4.49 (4.20-5.50) X10*6/uL Hgb 13.7 (12.0-16.0) g/dl Hct 40.1 (37-47) % MCV 89.3 (80-98) fL MCH 30.5 (27.0-33.0) pg MCHC 34.2 (31.0-35.0) g/dl RDW 12.1 (11.0-16.0) % Plt Count 259 D (160-400) X10*3/uL MPV 8.7 L (9.4-12.3) fL Immature Gran % (Auto) 0.1 (0.0-0.4) % Neut % (Auto) 42.9 L (45-73) % Lymph % (Auto) 46.9 H (20-40) % Pratt % (Auto) 8.4 (2-11) % Eos % (Auto) 1.1 (0-4) % Baso % (Auto) 0.6 (0-2) % Lymph # (Auto) 3.8 (1.2-4.9) X10*3/uL Pratt # (Auto) 0.7 (0.1-1.2) X10*3/uL Eos # (Auto) 0.1 (0.0-0.4) X10*3/uL Baso # (Auto) 0.1 (0.0-0.2) X10*3/uL Abs Immat Gran (auto) 0.01 (0.00-0.03) X10*3/uL Absolute Neuts (auto) 3.5 (2.0-8.3) X10*3/uL Absolute Nucleated RBC 0.000 (0.0-0.012) X10*3/uL Nucleated RBC % (auto) 0.0 (0.0-0.2) /100WBC PT (10.8-13.0) SEC INR (0.9-1.1) APTT (24.1-38.0) SEC Sodium 140 (135-145) mmol/L Potassium 3.1 L D (3.3-5.1) mmol/L Chloride 98 (96-108) mmol/L Carbon Dioxide 30 H (22-29) mmol/L Anion Gap 15 (12-20) BUN 8 L (9-16) mg/dL Creatinine 0.74 (0.5-1.4) mg/dL Estim Creat Clear Calc 71.8 Estimated GFR > 60 Random Glucose 109 (60-115) mg/dL Calcium 9.0 (8.4-10.2) mg/dL Total Bilirubin 0.7 (0.0-1.0) mg/dL Direct Bilirubin 0.2 (0.0-0.5) mg/dL AST 195 H (5-31) U/L ALT 77 H (0-31) U/L Alkaline Phosphatase 159 H D (39-117) U/L Total Protein 7.1 (6.5-8.0) g/dL Albumin 4.1 (3.5-5.0) g/dL Lipase 100 H (8-78) U/L Ethyl Alcohol 205 mg/dL 11/19/20 Range/Units 01:50 WBC (4.8-10.8) X10*3/uL RBC (4.20-5.50) X10*6/uL Hgb (12.0-16.0) g/dl Hct (37-47) % MCV (80-98) fL MCH (27.0-33.0) pg MCHC (31.0-35.0) g/dl RDW (11.0-16.0) % Plt Count (160-400) X10*3/uL MPV (9.4-12.3) fL Immature Gran % (Auto) (0.0-0.4) % Neut % (Auto) (45-73) % Lymph % (Auto) (20-40) % Pratt % (Auto) (2-11) % Eos % (Auto) (0-4) % Baso % (Auto) (0-2) % Lymph # (Auto) (1.2-4.9) X10*3/uL Pratt # (Auto) (0.1-1.2) X10*3/uL Eos # (Auto) (0.0-0.4) X10*3/uL Baso # (Auto) (0.0-0.2) X10*3/uL Abs Immat Gran (auto) (0.00-0.03) X10*3/uL Absolute Neuts (auto) (2.0-8.3) X10*3/uL Absolute Nucleated RBC (0.0-0.012) X10*3/uL Nucleated RBC % (auto) (0.0-0.2) /100WBC PT 13.4 H (10.8-13.0) SEC INR 1.1 (0.9-1.1) APTT 33.7 (24.1-38.0) SEC Sodium (135-145) mmol/L Potassium (3.3-5.1) mmol/L Chloride (96-108) mmol/L Carbon Dioxide (22-29) mmol/L Anion Gap (12-20) BUN (9-16) mg/dL Creatinine (0.5-1.4) mg/dL Estim Creat Clear Calc Estimated GFR Random Glucose (60-115) mg/dL Calcium (8.4-10.2) mg/dL Total Bilirubin (0.0-1.0) mg/dL Direct Bilirubin (0.0-0.5) mg/dL AST (5-31) U/L ALT (0-31) U/L Alkaline Phosphatase (39-117) U/L Total Protein (6.5-8.0) g/dL Albumin (3.5-5.0) g/dL Lipase (8-78) U/L Ethyl Alcohol mg/dL <VERNA Alfonso - Last Filed: 11/19/20 02:42> Lab Results 11/18/20 11/18/20 11/18/20 Range/Units 21:57 21:57 21:57 WBC 8.1 (4.8-10.8) X10*3/uL RBC 4.49 (4.20-5.50) X10*6/uL Hgb 13.7 (12.0-16.0) g/dl Hct 40.1 (37-47) % MCV 89.3 (80-98) fL MCH 30.5 (27.0-33.0) pg MCHC 34.2 (31.0-35.0) g/dl RDW 12.1 (11.0-16.0) % Plt Count 259 D (160-400) X10*3/uL MPV 8.7 L (9.4-12.3) fL Immature Gran % (Auto) 0.1 (0.0-0.4) % Neut % (Auto) 42.9 L (45-73) % Lymph % (Auto) 46.9 H (20-40) % Pratt % (Auto) 8.4 (2-11) % Eos % (Auto) 1.1 (0-4) % Baso % (Auto) 0.6 (0-2) % Lymph # (Auto) 3.8 (1.2-4.9) X10*3/uL Pratt # (Auto) 0.7 (0.1-1.2) X10*3/uL Eos # (Auto) 0.1 (0.0-0.4) X10*3/uL Baso # (Auto) 0.1 (0.0-0.2) X10*3/uL Abs Immat Gran (auto) 0.01 (0.00-0.03) X10*3/uL Absolute Neuts (auto) 3.5 (2.0-8.3) X10*3/uL Absolute Nucleated RBC 0.000 (0.0-0.012) X10*3/uL Nucleated RBC % (auto) 0.0 (0.0-0.2) /100WBC PT (10.8-13.0) SEC INR (0.9-1.1) APTT (24.1-38.0) SEC Sodium 140 (135-145) mmol/L Potassium 3.1 L D (3.3-5.1) mmol/L Chloride 98 (96-108) mmol/L Carbon Dioxide 30 H (22-29) mmol/L Anion Gap 15 (12-20) BUN 8 L (9-16) mg/dL Creatinine 0.74 (0.5-1.4) mg/dL Estim Creat Clear Calc 71.8 Estimated GFR > 60 Random Glucose 109 (60-115) mg/dL Calcium 9.0 (8.4-10.2) mg/dL Total Bilirubin 0.7 (0.0-1.0) mg/dL Direct Bilirubin 0.2 (0.0-0.5) mg/dL AST 195 H (5-31) U/L ALT 77 H (0-31) U/L Alkaline Phosphatase 159 H D (39-117) U/L Total Protein 7.1 (6.5-8.0) g/dL Albumin 4.1 (3.5-5.0) g/dL Lipase 100 H (8-78) U/L Ethyl Alcohol 205 mg/dL 11/19/20 Range/Units 01:50 WBC (4.8-10.8) X10*3/uL RBC (4.20-5.50) X10*6/uL Hgb (12.0-16.0) g/dl Hct (37-47) % MCV (80-98) fL MCH (27.0-33.0) pg MCHC (31.0-35.0) g/dl RDW (11.0-16.0) % Plt Count (160-400) X10*3/uL MPV (9.4-12.3) fL Immature Gran % (Auto) (0.0-0.4) % Neut % (Auto) (45-73) % Lymph % (Auto) (20-40) % Pratt % (Auto) (2-11) % Eos % (Auto) (0-4) % Baso % (Auto) (0-2) % Lymph # (Auto) (1.2-4.9) X10*3/uL Pratt # (Auto) (0.1-1.2) X10*3/uL Eos # (Auto) (0.0-0.4) X10*3/uL Baso # (Auto) (0.0-0.2) X10*3/uL Abs Immat Gran (auto) (0.00-0.03) X10*3/uL Absolute Neuts (auto) (2.0-8.3) X10*3/uL Absolute Nucleated RBC (0.0-0.012) X10*3/uL Nucleated RBC % (auto) (0.0-0.2) /100WBC PT 13.4 H (10.8-13.0) SEC INR 1.1 (0.9-1.1) APTT 33.7 (24.1-38.0) SEC Sodium (135-145) mmol/L Potassium (3.3-5.1) mmol/L Chloride (96-108) mmol/L Carbon Dioxide (22-29) mmol/L Anion Gap (12-20) BUN (9-16) mg/dL Creatinine (0.5-1.4) mg/dL Estim Creat Clear Calc Estimated GFR Random Glucose (60-115) mg/dL Calcium (8.4-10.2) mg/dL Total Bilirubin (0.0-1.0) mg/dL Direct Bilirubin (0.0-0.5) mg/dL AST (5-31) U/L ALT (0-31) U/L Alkaline Phosphatase (39-117) U/L Total Protein (6.5-8.0) g/dL Albumin (3.5-5.0) g/dL Lipase (8-78) U/L Ethyl Alcohol mg/dL <Senait Malcolm MD - Last Filed: 11/19/20 04:51> Imaging Data CT scan - abdomen: Radiologist's impression: FINDINGS: The visualized lung bases are clear. The visualized portions of the heart are unremarkable. The liver is of normal size and attenuation without focal lesions nor intrahepatic biliary ductal dilation.. The patient is status post cholecystectomy. Surgical clips are identified. The spleen, pancreas, adrenal glands are unremarkable. Both kidneys are of normal size and attenuation without hydronephrosis or nephrolithiasis. Following the administration of IV contrast, prompt symmetric nephrograms are displayed. There is no abdominal free fluid. There is neither mesenteric nor retroperitoneal lymphadenopathy. Normal unopacified loops of small and large bowel are identified. A normal appendix is identified. There is no pelvic free fluid. The urinary bladder is unremarkable. There is neither pelvic nor inguinal lymphadenopathy. Bone windows: Neither sclerotic nor lytic bone lesions are identified. CT/CT abdomen pelvis w con IMPRESSION: No acute abdominal or pelvic inflammatory or infectious processes. Automated exposure control (Care Dose) Adjustment of the mA and/or kv according to patient size (this includes techniques or standardized protocols for targeted exams where dose is matched to indication / reason for exam; i.e. extremities or head). <Senait Malcolm MD - Last Filed: 11/19/20 04:51> Discharge Plan Discharge Clinical Impression: ETOH abuse, Acute alcoholic gastritis <VERNA Alfonso - Last Filed: 11/19/20 02:42> Patient Disposition: Home, Self-Care <VERNA Alfonso - Last Filed: 11/19/20 02:42> Instructions: Gastritis (ED), Abuse of Alcohol (ED) <VERNA Alfonso - Last Filed: 11/19/20 02:42> Additional Instructions: Return to the ED for worsening abdominal pain, nausea, vomiting, fever, chills, rectal bleeding, vomiting blood, coffee black vomit, fever, chills, or any other concerning symptoms. <VERNA Alfonso - Last Filed: 11/19/20 02:42> Prescriptions: New sucralfate 1 gram tablet 1 g PO BID 10 Days Qty: 20 RF: 0 No Action dicyclomine 10 mg capsule See Rx Instructions .ROUTE .COMPLEX PRN (Reason: abdominal discomfort) Qty: 60 RF: 0 <VERNA Alfonso - Last Filed: 11/19/20 02:42> Referrals: Vidal Caro [Physician] - 2 days (Alcoholic gastritis.) <VERNA Alfonso - Last Filed: 11/19/20 02:42> Print Language: Sammarinese <VERNA Alfonso - Last Filed: 11/19/20 02:42>
[2020-11-19] MEDS: diphenhydrAMINE HCL 50 MG/ML VIAL IVPUSH (00:18)
[2020-11-19] MEDS: Magnesium Hydrox/Alum Hydrox 30 ML ORAL.SUSP PO (00:18)
[2020-11-19] MEDS: Lidocaine HCl Viscous 2 % 15 ML SOLUTION MUCOUS MEM (00:18)
[2020-11-19] MEDS: Famotidine/PF 20 MG/2 ML VIAL IVPUSH (00:19)
[2020-11-19] MEDS: PHENobarb/Hyoscy/Atropine/Scop 10 ML ELIXIR PO (00:19)
[2020-11-19] MEDS: ondansetron HCL 4 MG/2 ML VIAL IVPUSH (00:19)
[2020-11-19 02:16] LABS: INTERNATIONAL NORM RATIO 1.1 (0.9-1.1); Prothrombin Time 13.4 SEC (10.8-13.0)
[2020-11-19 02:19] LABS: Partial Thromboplastin Time 33.7 SEC (24.1-38.0)
[2020-11-19] MEDS: Sucralfate Oral Suspension 1 GM/10 ML ORAL.SUSP PO (02:46)
[2020-11-19] MEDS: Potassium Chloride Packet 20 MEQ PACKET 40 MEQ PO (02:46)
[2020-11-19] MEDS: Morphine Sulfate 2 MG/ML CARTRIDGE IVPUSH (02:47)
[2020-11-19] MEDS: iohexoL 350 MG/ML 100 ML INFUS..BTL 65 ML IV (03:58)
== END 2020-11-19 05:25 | disposition home or self-care (01) ==
PROVIDERS: Physician Assistant; Emergency Provider Emergency Medicine; PCP Internal Medicine
DX: K29.20 Alcoholic gastritis without bleeding (principal); F10.129 Alcohol abuse with intoxication, unspecified; Y90.7 Blood alcohol level of 200-239 mg/100 ml; R10.13 Epigastric pain; R11.2 Nausea with vomiting, unspecified; F17.200 Nicotine dependence, unspecified, uncomplicated; Z79.899 Other long term (current) drug therapy; Z71.6 Tobacco abuse counseling
CPT/HCPCS: 36415; 74177; 80053; 80076; 80320; 82248; 83690; 85025; 85610; 85730; 96360; 96361; 96365; 96375; 99284; J1200; J2270; J2405; Q9967

== ENCOUNTER 2020-11-26 11:06 | Outpatient (REF) | payer MEDICARE, OTHER, SELFPAY ==
[2020-11-26 12:47] LABS: Alanine Aminotransferase 41 U/L (0-31); Albumin Level 4.5 g/dL (3.5-5.0); Alkaline Phosphatase 155 U/L (39-117); Anion Gap 16 (12-20); Aspartate Amino Transferase 93 U/L (5-31); Bilirubin Total 1.9 mg/dL (0.0-1.0); Blood Urea Nitrogen 2 mg/dL (9-16); Calcium 9.4 mg/dL (8.4-10.2); Carbon Dioxide 32 mmol/L (22-29); Chloride 92 mmol/L (96-108); Cholesterol 157 mg/dL; Estimated Glomerular Filt Rate > 60; Glucose Random 111 mg/dL (60-115); HDL Cholesterol 72 mg/dL; LDL Cholesterol Calculated 60 mg/dl; Potassium 2.6 mmol/L (3.3-5.1); Sodium 137 mmol/L (135-145); Total Protein 7.4 g/dL (6.5-8.0); Triglycerides 129 mg/dL
== END 2020-11-26 11:07 | disposition home or self-care (01) ==
LOC: HO.LAB 11:06
PROVIDERS: PCP Internal Medicine; Visit Provider Internal Medicine
DX: E78.1 Pure hyperglyceridemia (principal); G62.1 Alcoholic polyneuropathy; M25.512 Pain in left shoulder; R10.30 Lower abdominal pain, unspecified; R19.7 Diarrhea, unspecified
CPT/HCPCS: 36415; 80053; 80061

== ENCOUNTER 2020-12-24 09:47 | Outpatient (REF) | payer MEDICARE, OTHER, SELFPAY ==
[2020-12-24 11:02] LABS: MANUAL DIFF FLAG NO
[2020-12-24 11:12] LABS: Basophils Absolute Auto 0.1 X10*3/uL (0.0-0.2); Basophils Percent Auto 0.7 % (0-2); Eosinophils Absolute Auto 0.2 X10*3/uL (0.0-0.4); Eosinophils Percent Auto 3.1 % (0-4); Hematocrit 42.9 % (37-47); Hemoglobin 13.8 g/dl (12.0-16.0); Imm Gran Abs Auto 0.02 X10*3/uL (0.00-0.03); Imm Gran Pct Auto 0.3 % (0.0-0.4); Lymphocytes Absolute Auto 2.2 X10*3/uL (1.2-4.9); Lymphocytes Percent Auto 32.3 % (20-40); Mean Corpuscular HGB Conc 32.2 g/dl (31.0-35.0); Mean Corpuscular Hemoglobin 29.7 pg (27.0-33.0); Mean Corpuscular Volume 92.3 fL (80-98); Mean Platelet Volume 8.9 fL (9.4-12.3); Monocytes Absolute Auto 0.9 X10*3/uL (0.1-1.2); Monocytes Percent Auto 12.9 % (2-11); Neutrophils Absolute Auto 3.4 X10*3/uL (2.0-8.3); Neutrophils Percent Auto 50.7 % (45-73); Platelet Count 523 X10*3/uL (160-400); Red Blood Count 4.65 X10*6/uL (4.20-5.50); White Blood Count 6.7 X10*3/uL (4.8-10.8)
[2020-12-24 11:33] LABS: Alanine Aminotransferase 22 U/L (0-31); Albumin Level 4.7 g/dL (3.5-5.0); Alkaline Phosphatase 82 U/L (39-117); Anion Gap 15 (12-20); Aspartate Amino Transferase 28 U/L (5-31); Bilirubin Total 1.2 mg/dL (0.0-1.0); Blood Urea Nitrogen 8 mg/dL (9-16); Carbon Dioxide 30 mmol/L (22-29); Chloride 99 mmol/L (96-108); Estimated Glomerular Filt Rate > 60; Glucose Random 107 mg/dL (60-115); Potassium 3.7 mmol/L (3.3-5.1); Sodium 140 mmol/L (135-145); Total Protein 7.4 g/dL (6.5-8.0)
== END 2020-12-24 09:48 | disposition home or self-care (01) ==
LOC: HO.LAB 09:47
PROVIDERS: PCP Internal Medicine; Visit Provider Internal Medicine
DX: R10.13 Epigastric pain (principal); E87.6 Hypokalemia; K29.21 Alcoholic gastritis with bleeding; R74.01 Elevation of levels of liver transaminase levels
CPT/HCPCS: 36415; 80053; 85025

== ENCOUNTER 2021-01-06 08:34 | Outpatient (REF) | payer MEDICARE, OTHER, SELFPAY | END 2021-01-06 08:35 | disposition home or self-care (01) | LOC: HO.HMGCX 08:34 | PROVIDERS: Visit Provider Internal Medicine | DX: Z13.89 Encounter for screening for other disorder (principal) ==

== ENCOUNTER 2021-01-10 10:02 | Outpatient (RCR) | payer MEDICARE, OTHER, SELFPAY ==
--- NOTE | 2021-01-10 10:58 | MHC.PT.EP ---
[facility] [place] Office [place] Office [place] Office [address] [address] [phone] F: [phone] F: [phone] F: [phone] F: [phone] Physical Therapy Plan of Care Date of Evaluation: Date of Surgery: N/A Diagnosis: M75.102 unspecified rotator cuff tear or rupture of left shoulder, not traumatic M12.812 other specific arthropathies, not elsewhere classified, left shoulder Assessment: pt presents to physical therapy w/ signs, symptoms, and imagin consistent w/ RTC tear. pt presents to physical therapy with pain, decreased range of motion, decreased strength, impaired functional mobility, and impaired postural awareness. pt is a good candidate for skilled PT due to age, potential remediation of impairments, typical disease/condition progression and prognosis, comorbidities, and motivation. pt would benefit from tailored strengthening and stretching exercise program, functional training, postural re-training, neuromuscular re-education, modalities as needed for pain, equipment safety demonstration. Frequency and Duration: The patient will be seen 2x/wk for 4 wks Short Term Goals: pt will be I w/ HEP to promote self-management of condition. pt will improve L shoulder flexion by 15 degrees to promote ease in reaching for objects on higher shelves. Jail Goals: pt will report <1/10 L shoulder pain w/ overhead elevation to promote pain-free return to work-related tasks. pt will report a statistically significant improvement in self-reported outcome measure, SPADI, to promote return to PLOF. Treatment Plan: Modalities to reduce pain, spasms and effusion. Manual therapy to restore motion and function. Therapeutic exercise to improve strength and flexibility. Neuromuscular re-education for posture and balance. Therapeutic activities to return to functional activities of daily living. Electronically signed by: Marbella Schaffer PT, DPT Please sign and return to therapist. Thank you for your referral.
--- NOTE | 2021-01-13 18:10 | MHC.PT.DC ---
[facility] [place] Office [place] Office [place] Office [address] [facility] [phone] F: [phone] F: [phone] F: [phone] F: [phone] Physical Therapy Discharge Report Diagnosis: M75.102 unspecified rotator cuff tear or rupture of left shoulder, not traumatic M12.812 other specific arthropathies, not elsewhere classified, left shoulder Date of Surgery: N/A Date of Evaluation: 01/10/21 Date of Discharge: 01/13/21 Treatments to Date: 1 Cancellations to Date: 0 No Shows to Date: 0 Discharge Status: Patient Elected to Stop Discharge Summary: The patient called our office to discharge herself from this physical therapy plan of care. She is satisfied with the exercises given at the evaluation and does not wish to attend any further visits. Electronically signed by: Marbella Schaffer PT, DPT Please sign and return to therapist. Thank you for your referral.
== END 2021-01-13 18:10 | disposition other institution (70) ==
LOC: HO.PT 10:02
PROVIDERS: PCP Internal Medicine; Visit Provider Physician Assistant
DX: M75.102 Unspecified rotator cuff tear or rupture of left shoulder, not specified as traumatic (principal); M12.812 Other specific arthropathies, not elsewhere classified, left shoulder
CPT/HCPCS: 97033; 97110; 97161

== ENCOUNTER 2021-02-09 19:21 | Emergency (ER) | payer MEDICARE, OTHER, SELFPAY ==
--- NOTE | ~2021-02-09 | XR_ITS ---
EXAMINATION: XR ABDOMEN KUB CLINICAL INDICATION: Fecal impaction COMPARISON: CT abdomen pelvis November 19, 2020 TECHNIQUE: AP view of the abdomen. FINDINGS: The bowel gas pattern is normal with no evidence of ileus or obstruction. Small volume of scattered stool in the colon. No evidence of constipation. No unusual soft tissue calcifications are noted. The bones are unremarkable. Surgical clips right upper quadrant of abdomen. Multilevel degenerative spondylosis spine with dextroscoliosis of the thoracolumbar spine. XR/XR KUB IMPRESSION: Small volume of stool in colon. No fecal impaction. Nonobstructive bowel pattern.
[2021-02-09 20:01] VITALS: BP 175/99; PULSE 84; RESP 18; TEMP 36.8; O2SAT 98; BMI 21.4
--- NOTE | 2021-02-09 21:06 | ED_ITS ---
HPI - Abdominal Pain General Chief Complaint: Abdominal Pain Stated Complaint: constipated Time Seen by Provider: 02/09/21 21:06 Source: patient Mode of arrival: ambulatory Limitations: no limitations History of Present Illness HPI narrative: patient complaining of being constipated for last 1 week tried MiraLax Dulcolax without any relief feels impacted feels nauseated not take any narcotics was seen here in 10/24 and 11/24 for similar complaints with abdominal pain with CT scan and ultrasound negative patient been followed with hot punch press operator was told that she has IBS on dicyclomine Related Data Previous Rx's Medication Instructions Recorded dicyclomine See Rx Instructions .ROUTE 10/12/20 .COMPLEX PRN #60 cap sucralfate 1 g PO BID 10 Days #20 tab 11/19/20 lorazepam [Ativan] 1 mg PO BID PRN #20 tab 02/09/21 Allergies Allergy/AdvReac Type Severity Reaction Status Date / Time levofloxacin [From LEVAQUIN] Allergy Unknown THROAT Verified 02/09/21 20:01 SWELLS mushroom AdvReac Mild STOMACH Verified 02/09/21 20:01 UPSET Review of Systems Review of Systems Constitutional : No Weight loss, No Fever, No Chills ENT/Mouth : No sore throat, No Rhinorrhea Eyes: No Eye Pain, No Swelling Cardiovascular : No Chest Pain, no palpitations Respiratory : No Cough, No Sputum, no shortness of breath Gastrointestinal :+ Nausea, No Vomiting, No Diarrhea, No abdominal Pain, no black stools Genitourinary : No Dysuria, No Urinary Frequency Musculoskeletal : No joint pain, No Myalgias, No Joint Swelling Skin : No Skin Lesions, No rash Neuro : No Weakness, No Numbness, No Dizziness, No Headache Psych : No Anxiety/Panic, No Depression Heme/Lymph: No Bruising, No Lymphadenopathy Endocrine : No Polyuria, No Polydipsia All other systems reviewed and are negative Physical Exam Vital Signs: Vital Signs: Last Vital Signs Temp 98.7 F 02/09/21 21:52 Pulse 84 02/09/21 21:52 Resp 18 02/09/21 21:52 BP 163/91 H 02/09/21 21:52 Pulse Ox 96 02/09/21 21:52 Body Mass Index 21.4 Appearance: Alert. Oriented X3. No acute distress. Eyes: PERRLA, No Nystagmus ENT: Pharynx normal. Oral Mucosa moist Neck: Normal inspection. Neck supple. CVS: Normal heart rate and rhythm. Pulses normal. Respiratory: No respiratory distress. Equal air entry bilateral, no wheezing/rales/rhonchi Abdomen: Soft and nontender. Bowel sounds are present, no mass palpable, no CVA tenderness Rectal: soft stool at tip of finger, no fecal impaction Skin: Skin warm and dry. Normal skin color. Normal skin turgor. Extremities: No lower extremity edema. No calf tenderness Neuro: Oriented X 3. No motor deficit. No sensory deficit.No cerebellar signs , cranial nerves II-XII intact MDM - Abdominal Pain MDM Narrative Medical decision making narrative: patient x-ray negative for fecal impaction rectal is empty. Patient has more stress at home some other family member unable to sleep likely the cause of significant abdominal pain flaring of IBS will discharge patient home on Ativan advised to follow with hot punch press operator Discharge Plan Discharge Clinical Impression: Anxiety Irritable bowel syndrome Qualifiers: Irritable bowel syndrome type: with constipation Qualified Code(s): K58.1 - Irritable bowel syndrome with constipation Patient Disposition: Home, Self-Care Instructions: Irritable Bowel Syndrome (ED), Anxiety (ED) Additional Instructions: rest at home drink plenty of fluids, take medication for constipation Follow with hot punch press operator. Take the medication for anxiety as prescribed Prescriptions: New lorazepam [Ativan] 1 mg tablet 1 mg PO BID PRN (Reason: anxiety) Qty: 20 RF: 0 No Action dicyclomine 10 mg capsule See Rx Instructions .ROUTE .COMPLEX PRN (Reason: abdominal discomfort) Qty: 60 RF: 0 sucralfate 1 gram tablet 1 g PO BID 10 Days Qty: 20 RF: 0 PMFSH Past Medical History Medical History Anxiety Depression ETOH abuse Lower extremity surgery planned Seasonal allergies Surgical History Hx of cholecystectomy Social History Social History Alcohol intake: current Alcohol intake frequency: 3 or more drinks per day Alcohol type: hard liquor Advance Directives: No Advance Directives Information Provided: No Patient : No Current occupational status: retired
--- NOTE | 2021-02-09 21:26 | PC.NURSE ---
PT IN STRETCHER WITH MD AT BEDSIDE FOR EVAL. PT AWAITING FOR KUB AND THEN POSSIBLE ENEMIA. PT ALERT, RESPIRATIONS EASY, N/L. SKIN W/D. WILL CONTINUE TO MONITOR PT.
--- NOTE | 2021-02-09 21:30 | PC.NURSE ---
PT TO X-RAY.
[2021-02-09 21:52] VITALS: BP 163/91; PULSE 84; RESP 18; TEMP 37.1; O2SAT 96
--- NOTE | 2021-02-09 22:40 | PC.NURSE ---
PT REFUSING ENEMA. DR FARHEEN FREEMAN. IN ROOM FOR CONVERSING WITH PT AND ON SPEAKER PHONE. PT REQUESTING TO GO HOME. PT DENIES ANY COMPLAINTS AND DRINKING KIESHA YAYA AND EATING CRACKERS W/O DIFFICULTY. PT AWAITING FOR DISPO INSTRUCTIONS. AWAITING FOR PT'S RIDE HOME BY .
[2021-02-09] MEDS: Sodium Phosphate,Mono-Dibasic 133 ML ENEMA PR (22:43)
[2021-02-09] MEDS: LORazepam 1 MG TABLET PO (22:55)
== END 2021-02-09 23:12 | disposition home or self-care (01) ==
PROVIDERS: Emergency Provider Internal Medicine; PCP Internal Medicine
DX: K58.1 Irritable bowel syndrome with constipation (principal); Z63.4 Disappearance and death of family member
CPT/HCPCS: 74018; 99284

== ENCOUNTER 2021-03-18 15:45 | Emergency (ER) | payer MEDICARE, OTHER, SELFPAY ==
--- NOTE | ~2021-03-18 | CT_ITS ---
EXAMINATION: CT CHEST WITHOUT CONTRAST CT ABDOMEN AND PELVIS WITH CONTRAST CLINICAL INFORMATION: Concern for Ramona-Caro tear. Diffuse abdominal pain. COMPARISON: 11/19/2020. TECHNIQUE: Multidetector volumetric imaging was performed through the chest without IV contrast. This is followed by multidetector volumetric imaging of the abdomen and pelvis following the administration of 85 mL of Omnipaque 350 intravenous contrast. Sagittal and coronal reformatted images were obtained on the technologist's workstation. Axial MIP volume rendering provided. This CT examination was performed using dose optimization techniques as appropriate, variously including the following: *Automated exposure control *Adjustment of mA and/or kV according to patient size (this includes techniques or standardized protocols for targeted exams where dose is matched to indication/reason for exam; i.e. extremities or head) *Use of iterative reconstruction technique DLP: 638 mGy-cm. FINDINGS: CHEST: Lungs: The central airways are patent. Mild bronchial wall thickening. No consolidation. No pleural effusion or pneumothorax. There are no pulmonary parenchymal nodules. Mediastinum: The heart is of normal size. There is no pericardial effusion. Central vascular structures are unremarkable. No hilar or mediastinal lymphadenopathy. No pneumomediastinum. Normal appearance of the esophagus. Chest Wall/Axilla: No lymphadenopathy. No chest wall mass. ABDOMEN/PELVIS: Liver, Gallbladder, Biliary Tree: The liver is normal in size, shape, and attenuation. No focal hepatic lesion. Cholecystectomy. There is intrahepatic and extrahepatic biliary ductal dilatation noted. This is similar to prior. No ductal filling defect. Pancreas: Unremarkable. Spleen: Unremarkable. Adrenal Glands: Unremarkable. Kidneys and Ureters: The kidneys are normal in size, shape, and attenuation. No hydronephrosis, hydroureter or calculi seen. No perinephric stranding. Bladder: Unremarkable. Gastrointestinal Tract: Small hiatal hernia. The stomach is unremarkable otherwise. Normal caliber small bowel. There is no obstruction. There is a moderate colonic stool burden, greatest at the rectum where there is distention with stool. Mild rectal wall thickening with adjacent inflammation. No free air. No significant free fluid. Abdominal Wall: No hernia is demonstrated. Lymphovascular Structures: Lymph nodes: Mildly prominent retroperitoneal lymph nodes are similar to prior. Vascular: Normal caliber aorta with mild atherosclerotic calcification. Pelvic Viscera: The uterus and adnexa are unremarkable. OSSEOUS STRUCTURES: No suspicious sclerotic or lytic bone lesions are identified. Degenerative changes noted in the spine, particularly at the lumbar spine where there is multilevel vacuum disc phenomenon. Multilevel facet arthropathy. Scoliotic curvature of the spine noted. CT/CT abdomen pelvis w con IMPRESSION: 1. Distention of the rectum with stool. Associated rectal wall thickening with mild adjacent inflammation suggestive of stercoral colitis. 2. Cholecystectomy. Prominent intrahepatic and extrahepatic biliary ductal dilatation. This is similar to previous imaging. No ductal filling defects. 3. No acute finding of the chest. No pneumomediastinum. Normal appearance of the esophagus.
[2021-03-18 15:50] VITALS: BP 165/103; PULSE 97; RESP 18; TEMP 36.6; O2SAT 98; BMI 22.3
--- NOTE | 2021-03-18 16:26 | ED.ABDPAIN ---
HPI - Abdominal Pain General Chief Complaint: Abdominal Pain Stated Complaint: vomitting blood Time Seen by Provider: 03/18/21 16:13 Source: patient Mode of arrival: ambulatory Limitations: no limitations History of Present Illness HPI narrative: Patient comes to the emergency room complaining of vomiting blood for 6 days. Patient states that 6 days ago, she started vomiting red color vomitus. Initially, she thought it was tomatoes, patient states she is known to have low potassium and needs a lot of room. However, gradually the abdominal pain has becoming more intense, has not been eating tomatoes and she is still vomiting of breath. Patient states that approximately 10 years ago she had a Ramona-Caro tear. Patient states that she does drink alcohol, but she is trying to reduce the quantity and frequency. Patient denies any rectal bleeding. Patient states that her abdomen is diffusely mildly tender, feels bloated. Patient brought with her a sample of the vomitus in napkins in a Ziploc bag Related Data Previous Rx's Medication Instructions Recorded dicyclomine 10 mg capsule See Rx Instructions .ROUTE 10/12/20 .COMPLEX PRN #60 cap sucralfate 1 gram tablet 1 g PO BID 10 Days #20 tab 11/19/20 lorazepam 1 mg tablet (Ativan) 1 mg PO BID PRN #20 tab 02/09/21 amoxicillin 500 mg-potassium 1 tab PO BID #19 tab 03/18/21 clavulanate 125 mg tablet (Augmentin) ondansetron HCl 4 mg tablet 4 mg PO Q6H PRN #10 tab 03/18/21 (Zofran) tramadol 50 mg tablet 50 mg PO BID PRN #10 tab 03/18/21 Allergies Allergy/AdvReac Type Severity Reaction Status Date / Time levofloxacin [From LEVAQUIN] Allergy Unknown THROAT Verified 02/09/21 20:01 SWELLS mushroom AdvReac Mild STOMACH Verified 02/09/21 20:01 UPSET Review of Systems Review of Systems Constitutional : No Weight loss, No Fever, No Chills, No Night Sweats, No Fatigue, No Malaise ENT/Mouth : No Hearing loss, No Ear Pain, No Nasal Congestion, No Sinus Pain, No Hoarseness, No sore throat, No Rhinorrhea, No Swallowing Difficulty Eyes: No Eye Pain, No Swelling, No Redness, No Foreign Body, No Discharge, No Vision Changes Cardiovascular : No Chest Pain, No SOB, No Dyspnea on Exertion, No Orthopnea, No Edema, No Palpitations Respiratory : No Cough, No Sputum, No Wheezing, No Smoke Exposure, No Dyspnea Gastrointestinal : Complaining of nausea and vomiting blood for 6 days, No Diarrhea, complaining of chronic Constipation, complaining of diffuse abdominal distension, mild discomfort, constant, nonradiating Genitourinary : no irregular bleeding, No Dysuria, No Urinary Frequency, No Hematuria, No Urinary Incontinence, No Urgency, No Flank Pain, No Urinary Flow Changes, No Hesitancy Musculoskeletal : No joint pain, No Myalgias, No Joint Swelling Skin : No Skin Lesions, No rash Neuro : No Weakness, No Numbness, No Paresthesias, No Loss of Consciousness, No Dizziness, No Headache Psych : No Anxiety/Panic, No Depression, No SI/HI/AH/VH, No Social Issues, Heme/Lymph: No Bruising, No Bleeding,No Lymphadenopathy Endocrine : No Polyuria, No Polydipsia, No Temperature Intolerance Physical Exam Vital Signs: Vital Signs: Last Vital Signs Temp 97.9 F 03/18/21 15:50 Pulse 97 03/18/21 15:50 Resp 18 03/18/21 15:50 BP 165/103 H 03/18/21 15:50 Pulse Ox 98 03/18/21 15:50 Body Mass Index 22.3 Const: Other: Appearance: Alert. Oriented X3. No acute distress. Eyes: Pupils equal, round and reactive to light. ENT: Pharynx normal. Neck: Normal inspection. Neck supple. No lymph nodes noted. No crepitus CVS: Normal heart rate and rhythm. Pulses normal. Normal S1 and S2 Respiratory: No respiratory distress. Breath sounds normal. No Wheezing. No rales Abdomen: Soft , distended, mild pain to palpation in all quadrants, digital rectal exam shows brown stool, no active lower GI bleed Skin: Skin warm and dry. Normal skin color. Normal skin turgor. Extremities: No lower extremity edema. No lower extremity edema. No Lacerations. No Rash Neuro: Oriented X 3. No motor deficit. No sensory deficit. Moving all extermities. No slurred speech. Course Course Course Narrative: I discussed the labs and imaging with the patient, GI consult is pending. Patient states that she does not want to wait for GI consult and wants to be discharged home. I discussed with the patient that she will be leaving against medical advise. Prior to leaving, patient received 1 dose of Augmentin and tramadol. Patient states that she will follow-up with her aligner barrel and receiver Dr. Caro Patient's H&H stable, white negative, no active vomiting in the emergency room MDM - Abdominal Pain Lab Data Result diagrams: 03/18/21 16:39 03/18/21 16:39 Labs: Lab Results 03/18/21 03/18/21 03/18/21 Range/Units 16:39 16:39 16:39 WBC 7.6 (4.8-10.8) X10*3/uL RBC 4.50 (4.20-5.50) X10*6/uL Hgb 13.2 (12.0-16.0) g/dl Hct 39.1 (37-47) % MCV 86.9 (80-98) fL MCH 29.3 (27.0-33.0) pg MCHC 33.8 (31.0-35.0) g/dl RDW 13.8 (11.0-16.0) % Plt Count 413 H (160-400) X10*3/uL MPV 8.3 L (9.4-12.3) fL Immature Gran % (Auto) 0.3 (0.0-0.4) % Neut % (Auto) 58.9 (45-73) % Lymph % (Auto) 30.4 (20-40) % Sierra % (Auto) 8.4 (2-11) % Eos % (Auto) 1.3 (0-4) % Baso % (Auto) 0.7 (0-2) % Lymph # (Auto) 2.3 (1.2-4.9) X10*3/uL Sierra # (Auto) 0.6 (0.1-1.2) X10*3/uL Eos # (Auto) 0.1 (0.0-0.4) X10*3/uL Baso # (Auto) 0.1 (0.0-0.2) X10*3/uL Abs Immat Gran (auto) 0.02 (0.00-0.03) X10*3/uL Absolute Neuts (auto) 4.5 (2.0-8.3) X10*3/uL Absolute Nucleated RBC 0.000 (0.0-0.012) X10*3/uL Nucleated RBC % (auto) 0.0 (0.0-0.2) /100WBC PT 11.5 (9.9-13.0) SEC INR 1.0 (0.9-1.1) Sodium 135 (135-145) mmol/L Potassium 3.4 (3.3-5.1) mmol/L Chloride 98 (96-108) mmol/L Carbon Dioxide 27 (22-29) mmol/L Anion Gap 13 (12-20) BUN 6 L (9-16) mg/dL Creatinine 0.72 (0.5-1.4) mg/dL Estim Creat Clear Calc 70.0 Estimated GFR > 60 Random Glucose 109 (60-115) mg/dL Calcium 8.9 D (8.4-10.2) mg/dL Magnesium (1.6-2.6) mg/dL Total Bilirubin 0.4 (0.0-1.0) mg/dL Direct Bilirubin 0.2 (0.0-0.5) mg/dL AST 52 H (5-31) U/L ALT 37 H (0-31) U/L Alkaline Phosphatase 85 (39-117) U/L Total Protein 6.9 (6.5-8.0) g/dL Albumin 4.4 (3.5-5.0) g/dL Lipase (8-78) U/L Stool Occult Blood (NEGATIVE) Ethyl Alcohol mg/dL 03/18/21 03/18/21 03/18/21 Range/Units 16:39 16:39 16:39 WBC (4.8-10.8) X10*3/uL RBC (4.20-5.50) X10*6/uL Hgb (12.0-16.0) g/dl Hct (37-47) % MCV (80-98) fL MCH (27.0-33.0) pg MCHC (31.0-35.0) g/dl RDW (11.0-16.0) % Plt Count (160-400) X10*3/uL MPV (9.4-12.3) fL Immature Gran % (Auto) (0.0-0.4) % Neut % (Auto) (45-73) % Lymph % (Auto) (20-40) % Sierra % (Auto) (2-11) % Eos % (Auto) (0-4) % Baso % (Auto) (0-2) % Lymph # (Auto) (1.2-4.9) X10*3/uL Sierra # (Auto) (0.1-1.2) X10*3/uL Eos # (Auto) (0.0-0.4) X10*3/uL Baso # (Auto) (0.0-0.2) X10*3/uL Abs Immat Gran (auto) (0.00-0.03) X10*3/uL Absolute Neuts (auto) (2.0-8.3) X10*3/uL Absolute Nucleated RBC (0.0-0.012) X10*3/uL Nucleated RBC % (auto) (0.0-0.2) /100WBC PT (9.9-13.0) SEC INR (0.9-1.1) Sodium (135-145) mmol/L Potassium (3.3-5.1) mmol/L Chloride (96-108) mmol/L Carbon Dioxide (22-29) mmol/L Anion Gap (12-20) BUN (9-16) mg/dL Creatinine (0.5-1.4) mg/dL Estim Creat Clear Calc Estimated GFR Random Glucose (60-115) mg/dL Calcium (8.4-10.2) mg/dL Magnesium 2.2 (1.6-2.6) mg/dL Total Bilirubin (0.0-1.0) mg/dL Direct Bilirubin (0.0-0.5) mg/dL AST (5-31) U/L ALT (0-31) U/L Alkaline Phosphatase (39-117) U/L Total Protein (6.5-8.0) g/dL Albumin (3.5-5.0) g/dL Lipase 50 (8-78) U/L Stool Occult Blood NEGATIVE (NEGATIVE) Ethyl Alcohol 178 mg/dL Imaging Data CT of chest abdomen and pelvis: Radiologist's impression: INDINGS: CHEST: Lungs: The central airways are patent. Mild bronchial wall thickening. No consolidation. No pleural effusion or pneumothorax. There are no pulmonary parenchymal nodules.? Mediastinum: The heart is of normal size. There is no pericardial effusion. Central vascular structures are unremarkable. No hilar or mediastinal lymphadenopathy. No pneumomediastinum. Normal appearance of the esophagus.? Chest Wall/Axilla: No lymphadenopathy. No chest wall mass.? ABDOMEN/PELVIS: Liver, Gallbladder, Biliary Tree: The liver is normal in size, shape, and attenuation. No focal hepatic lesion. Cholecystectomy. There is intrahepatic and extrahepatic biliary ductal dilatation noted. This is similar to prior. No ductal filling defect.? Pancreas: Unremarkable.? Spleen: Unremarkable.? Adrenal Glands: Unremarkable.? Kidneys and Ureters: The kidneys are normal in size, shape, and attenuation. No hydronephrosis, hydroureter or calculi seen. No perinephric stranding.? Bladder: Unremarkable.? Gastrointestinal Tract: Small hiatal hernia. The stomach is unremarkable otherwise. Normal caliber small bowel. There is no obstruction. There is a moderate colonic stool burden, greatest at the rectum where there is distention with stool. Mild rectal wall thickening with adjacent inflammation. No free air. No significant free fluid.? Abdominal Wall: No hernia is demonstrated.? Lymphovascular Structures:? Lymph nodes: Mildly prominent retroperitoneal lymph nodes are similar to prior. Vascular: Normal caliber aorta with mild atherosclerotic calcification. Pelvic Viscera: The uterus and adnexa are unremarkable.? OSSEOUS STRUCTURES: No suspicious sclerotic or lytic bone lesions are identified. Degenerative changes noted in the spine, particularly at the lumbar spine where there is multilevel vacuum disc phenomenon. Multilevel facet arthropathy. Scoliotic curvature of the spine noted. CT/CT chest wo con IMPRESSION: ? 1. Distention of the rectum with stool. Associated rectal wall thickening with mild adjacent inflammation suggestive of stercoral colitis. 2. Cholecystectomy. Prominent intrahepatic and extrahepatic biliary ductal dilatation. This is similar to previous imaging. No ductal filling defects. 3. No acute finding of the chest. No pneumomediastinum. Normal appearance of the esophagus.? ? Discharge Plan Discharge Clinical Impression: Hemoptysis, Colitis Patient Disposition: Left Against Medical Advice Instructions: Hemoptysis (ED), Colitis (ED) Additional Instructions: Please follow-up with your primary care physician tomorrow. If you have any worsening or new symptoms, please return to the emergency room or call 911 Prescriptions: New amoxicillin-pot clavulanate [Augmentin] 500-125 mg tablet 1 tab PO BID Qty: 19 RF: 0 tramadol 50 mg tablet 50 mg PO BID PRN (Reason: pain) Qty: 10 RF: 0 ondansetron HCl [Zofran] 4 mg tablet 4 mg PO Q6H PRN (Reason: nausea and vomiting) Qty: 10 RF: 0 No Action lorazepam [Ativan] 1 mg tablet 1 mg PO BID PRN (Reason: anxiety) Qty: 20 RF: 0 dicyclomine 10 mg capsule See Rx Instructions .ROUTE .COMPLEX PRN (Reason: abdominal discomfort) Qty: 60 RF: 0 sucralfate 1 gram tablet 1 g PO BID 10 Days Qty: 20 RF: 0 PMFSH Past Medical History Medical History Anxiety Depression ETOH abuse Lower extremity surgery planned Seasonal allergies Surgical History Hx of cholecystectomy Social History Social History Alcohol intake: current Alcohol intake frequency: 3 or more drinks per day Alcohol type: hard liquor Patient Tobacco Use Status: Current everyday Tobacco user Smoked in Last 30 Days: Yes Use of substances other than those prescribed or required for medical reasons: No Advance Directives: No Advance Directives Information Provided: Yes Patient : No Current occupational status: retired
[2021-03-18 16:46] LABS: MANUAL DIFF FLAG NO
[2021-03-18 16:49] LABS: OBS Int Ctl Valid YES; OBS1 NEGATIVE (NEGATIVE)
[2021-03-18 16:50] LABS: Basophils Absolute Auto 0.1 X10*3/uL (0.0-0.2); Basophils Percent Auto 0.7 % (0-2); Eosinophils Absolute Auto 0.1 X10*3/uL (0.0-0.4); Eosinophils Percent Auto 1.3 % (0-4); Hematocrit 39.1 % (37-47); Hemoglobin 13.2 g/dl (12.0-16.0); Imm Gran Abs Auto 0.02 X10*3/uL (0.00-0.03); Imm Gran Pct Auto 0.3 % (0.0-0.4); Lymphocytes Absolute Auto 2.3 X10*3/uL (1.2-4.9); Lymphocytes Percent Auto 30.4 % (20-40); Mean Corpuscular HGB Conc 33.8 g/dl (31.0-35.0); Mean Corpuscular Hemoglobin 29.3 pg (27.0-33.0); Mean Corpuscular Volume 86.9 fL (80-98); Mean Platelet Volume 8.3 fL (9.4-12.3); Monocytes Absolute Auto 0.6 X10*3/uL (0.1-1.2); Monocytes Percent Auto 8.4 % (2-11); Neutrophils Absolute Auto 4.5 X10*3/uL (2.0-8.3); Neutrophils Percent Auto 58.9 % (45-73); Platelet Count 413 X10*3/uL (160-400); Red Cell Distribution Width 13.8 % (11.0-16.0); White Blood Count 7.6 X10*3/uL (4.8-10.8)
[2021-03-18] MEDS: Pantoprazole Sodium 40 MG/10 ML VIAL IVPUSH (16:53)
[2021-03-18] MEDS: Octreotide Acetate 100 MCG/ML AMPUL 50 MCG IVPUSH (16:54)
[2021-03-18] MEDS: ondansetron HCL 4 MG/2 ML VIAL IVPUSH (16:54)
[2021-03-18 16:56] LABS: Prothrombin Time 11.5 SEC (9.9-13.0)
[2021-03-18] MEDS: 0.9 % Sodium Chloride 1,000 ML 999 ML IVCONT (16:56)
[2021-03-18 17:16] LABS: Ethanol 178 mg/dL
[2021-03-18 17:17] LABS: Alanine Aminotransferase 37 U/L (0-31); Albumin Level 4.4 g/dL (3.5-5.0); Alkaline Phosphatase 85 U/L (39-117); Anion Gap 13 (12-20); Aspartate Amino Transferase 52 U/L (5-31); Bilirubin Direct 0.2 mg/dL (0.0-0.5); Bilirubin Total 0.4 mg/dL (0.0-1.0); Blood Urea Nitrogen 6 mg/dL (9-16); Calcium 8.9 mg/dL (8.4-10.2); Carbon Dioxide 27 mmol/L (22-29); Chloride 98 mmol/L (96-108); Estimated Glomerular Filt Rate > 60; Glucose Random 109 mg/dL (60-115); Potassium 3.4 mmol/L (3.3-5.1); Sodium 135 mmol/L (135-145); Total Protein 6.9 g/dL (6.5-8.0)
[2021-03-18 17:18] LABS: Lipase 50 U/L (8-78); Magnesium 2.2 mg/dL (1.6-2.6)
[2021-03-18] MEDS: iohexoL 350 MG/ML 100 ML INFUS..BTL 85 ML IV (18:14)
[2021-03-18 19:49] VITALS: BP 161/107; PULSE 91; RESP 16; O2SAT 95
[2021-03-18] MEDS: traMADoL HCL 50 MG TABLET PO (19:50)
[2021-03-18] MEDS: Amoxicillin/Potassium Clav 500 MG TABLET PO (19:51)
== END 2021-03-18 21:36 | disposition left against medical advice (07) ==
PROVIDERS: Emergency Provider Emergency Medicine; PCP Internal Medicine
DX: K52.9 Noninfective gastroenteritis and colitis, unspecified (principal); K92.0 Hematemesis; R10.9 Unspecified abdominal pain; F17.200 Nicotine dependence, unspecified, uncomplicated; Z71.6 Tobacco abuse counseling; Z79.899 Other long term (current) drug therapy
CPT/HCPCS: 36415; 71250; 74177; 80048; 80076; 82077; 82272; 83690; 83735; 85025; 85610; 96361; 96374; 96375; 99284; 99285; J2354; J2405; Q9967

== ENCOUNTER → 2021-05-11 14:33 | Outpatient (BNVA) | payer MEDICARE, OTHER, SELFPAY | PROVIDERS: PCP Internal Medicine; Visit Provider Nurse Practitioner Family | DX: M53.3 Sacrococcygeal disorders, not elsewhere classified (principal); M47.816 Spondylosis without myelopathy or radiculopathy, lumbar region | CPT/HCPCS: 99202 ==

== ENCOUNTER 2021-05-25 12:32 | Outpatient (REF) | payer MEDICARE, OTHER, SELFPAY | END 2021-05-25 12:33 | disposition home or self-care (01) | LOC: HO.HOSX 12:32 | PROVIDERS: Visit Provider Physician Assistant | DX: M75.102 Unspecified rotator cuff tear or rupture of left shoulder, not specified as traumatic (principal); M12.812 Other specific arthropathies, not elsewhere classified, left shoulder | CPT/HCPCS: 20610; 99212; J1040 ==

== ENCOUNTER 2021-06-15 10:33 | Outpatient (REF) | payer MEDICARE, OTHER, SELFPAY ==
--- NOTE | ~2021-06-15 | MM_ITS ---
EXAMINATION: MM SCREENING DIGITAL BREAST TOMOSYNTHESIS, BILATERAL CLINICAL INFORMATION: Screening. Asymptomatic. The lifetime risk of breast cancer based on the Tyrer-Cuzick Model is 10%. COMPARISON: Mammography: 02/23/2020, 10/03/2018, 03/28/2018 TECHNIQUE: Digital breast tomosynthesis is performed in both the craniocaudal and mediolateral oblique views along with computer-aided detection (CAD). Synthesized 2D images are generated from the tomosynthesis. FINDINGS: There are scattered areas of fibroglandular density (ACR BI-RADS breast composition Category b). Parenchymal pattern is similar to prior studies. No developing density or interval mass or architectural abnormality. No abnormal calcifications. The axilla and skin contours are unremarkable. MM/MM tomosynthesis screening BI IMPRESSION: No mammographic evidence of malignancy. ASSESSMENT: BI-RADS 1: Negative RECOMMENDATION: Routine annual mammography screening. This patient's information was entered into a reminder system with a target due date for their next mammogram.
== END 2021-06-15 10:34 | disposition home or self-care (01) ==
LOC: HO.MAMMO 10:33
PROVIDERS: Visit Provider Internal Medicine
DX: Z12.31 Encounter for screening mammogram for malignant neoplasm of breast (principal)
CPT/HCPCS: 77063; 77067

== ENCOUNTER 2021-07-18 09:14 | Outpatient (REF) | payer MEDICARE, OTHER, SELFPAY ==
--- NOTE | ~2021-07-18 | CT_ITS ---
EXAMINATION: CT HEAD WITHOUT CONTRAST CLINICAL INFORMATION: Headache and falls. COMPARISON: None TECHNIQUE: Contiguous axial imaging was performed from the skull base to vertex without intravenous administration of contrast. This CT examination was performed using dose optimization techniques as appropriate, variously including the following: *Automated exposure control *Adjustment of mA and/or kV according to patient size (this includes techniques or standardized protocols for targeted exams where dose is matched to indication/reason for exam; i.e. extremities or head) *Use of iterative reconstruction technique DLP: 733 mGy-cm FINDINGS: There is no evidence of acute intracranial hemorrhage or territorial infarction. No abnormal mass effect or midline shift is seen. Vivas to white matter differentiation is well preserved. No extra-axial fluid collections are identified. The ventricles are normal in size. There is no abnormal attenuation within the brain parenchyma. The osseous structures and soft tissues are normal. The mastoid air cells and visualized portions of the paranasal sinuses are well aerated. CT/CT head/brain wo con IMPRESSION: No acute intracranial process is seen.
[2021-07-18 10:47] LABS: MANUAL DIFF FLAG NO
[2021-07-18 10:55] LABS: Basophils Percent Auto 0.3 % (0-2); Eosinophils Absolute Auto 0.1 X10*3/uL (0.0-0.4); Eosinophils Percent Auto 1.2 % (0-4); Hematocrit 36.2 % (37.0-47.0); Hemoglobin 11.8 g/dl (12.0-16.0); Imm Gran Abs Auto 0.03 X10*3/uL (0.00-0.03); Imm Gran Pct Auto 0.3 % (0.0-0.4); Lymphocytes Absolute Auto 2.2 X10*3/uL (1.2-4.9); Lymphocytes Percent Auto 25.2 % (20-40); Mean Corpuscular HGB Conc 32.6 g/dl (31.0-35.0); Mean Corpuscular Hemoglobin 27.4 pg (27.0-33.0); Mean Corpuscular Volume 84.2 fL (80.0-98.0); Mean Platelet Volume 7.8 fL (9.4-12.3); Monocytes Absolute Auto 1.2 X10*3/uL (0.1-1.2); Monocytes Percent Auto 14.1 % (2-11); Neutrophils Absolute Auto 5.2 x10*3/uL (2.0-8.3); Neutrophils Percent Auto 58.9 % (45-73); Platelet Count 514 X10*3/uL (160-400); Red Cell Distribution Width 13.2 % (11.0-16.0); White Blood Count 8.8 X10*3/uL (4.8-10.8)
[2021-07-18 11:23] LABS: Alanine Aminotransferase 34 U/L (0-31); Albumin Level 4.6 g/dL (3.5-5.0); Alkaline Phosphatase 98 U/L (39-117); Anion Gap 14 (12-20); Aspartate Amino Transferase 37 U/L (5-31); Bilirubin Total 0.3 mg/dL (0.0-1.0); Blood Urea Nitrogen 13 mg/dL (9-16); Calcium 10.1 mg/dL (8.4-10.2); Carbon Dioxide 33 mmol/L (22-29); Chloride 91 mmol/L (96-108); Cholesterol 254 mg/dL; Estimated Glomerular Filt Rate > 60; Glucose Random 116 mg/dL (60-115); HDL Cholesterol 76 mg/dL; LDL Cholesterol Calculated 156 mg/dl; Potassium 3.3 mmol/L (3.3-5.1); Sodium 135 mmol/L (135-145); Total Protein 7.5 g/dL (6.5-8.0); Triglycerides 111 mg/dL
[2021-07-18 11:43] LABS: Thyroid Stimulating Hormone 1.97 uIU/mL (0.32-4.0)
== END 2021-07-18 09:15 | disposition home or self-care (01) ==
LOC: HO.CT 09:14
PROVIDERS: PCP Internal Medicine; Visit Provider Internal Medicine
DX: Z00.00 Encounter for general adult medical examination without abnormal findings (principal); R51.9 Headache, unspecified; S43.4 Sprain of shoulder joint; F10.19 Alcohol abuse with unspecified alcohol-induced disorder; Z72.0 Tobacco use; Z91.81 History of falling
CPT/HCPCS: 36415; 70450; 80053; 80061; 84443; 85025

== ENCOUNTER 2021-09-12 11:44 | Outpatient (REF) | payer MEDICARE, OTHER, SELFPAY ==
[2021-09-12 13:26] LABS: Alanine Aminotransferase 47 U/L (0-31); Albumin Level 4.3 g/dL (3.5-5.0); Alkaline Phosphatase 98 U/L (39-117); Anion Gap 12 (12-20); Aspartate Amino Transferase 53 U/L (5-31); Bilirubin Total 0.6 mg/dL (0.0-1.0); Blood Urea Nitrogen 9 mg/dL (9-16); Calcium 9.7 mg/dL (8.4-10.2); Carbon Dioxide 30 mmol/L (22-29); Chloride 100 mmol/L (96-108); Cholesterol 138 mg/dL; Estimated Glomerular Filt Rate > 60; Glucose Random 99 mg/dL (60-115); HDL Cholesterol 58 mg/dL; LDL Cholesterol Calculated 63 mg/dl; Potassium 3.4 mmol/L (3.3-5.1); Sodium 139 mmol/L (135-145); Triglycerides 87 mg/dL
== END 2021-09-12 11:45 | disposition home or self-care (01) ==
LOC: HO.LAB 11:44
PROVIDERS: PCP Internal Medicine; Visit Provider Internal Medicine
DX: E78.00 Pure hypercholesterolemia, unspecified (principal); F10.11 Alcohol abuse, in remission; F31.9 Bipolar disorder, unspecified; I10 Essential (primary) hypertension; R74.01 Elevation of levels of liver transaminase levels
CPT/HCPCS: 36415; 80053; 80061

== ENCOUNTER 2021-11-09 10:29 | Outpatient (REF) | payer MEDICARE, OTHER, SELFPAY ==
--- NOTE | ~2021-11-09 | XR_ITS ---
EXAMINATION: XR CERVICAL SPINE CLINICAL INFORMATION: Cervicalgia COMPARISON: CT dated 08/28/2019 TECHNIQUE: 4 views of the cervical spine were obtained. FINDINGS: No acute fracture or traumatic malalignment. Vertebral body heights maintained. Small endplate ossified present at C5-C6 and C6-C7. Moderate facet arthropathy at C2-C3 and C3-C4 and mild facet arthropathy throughout the remainder of the cervical spine. Paraspinal soft tissues unremarkable. XR/XR cervical spine 3V IMPRESSION: No acute fracture or traumatic malalignment. Cervical spondylosis as described.
--- NOTE | ~2021-11-09 | XR_ITS ---
EXAMINATION: XR LUMBOSACRAL SPINE CLINICAL INFORMATION: Spondylosis COMPARISON: None TECHNIQUE: Three views of the lumbosacral spine. FINDINGS: No acute fracture or traumatic malalignment. Moderate S-shaped lumbar scoliosis, apex right at L1, apex left at L4-L5. Vertebral body heights maintained. Prominent endplate osteophytes present throughout the lumbar spine. Moderate loss of disc space height at L5-S1. Moderate loss of disc space height along the left lateral interspace at L1-L2. Endplate osteophytes present throughout the lumbar spine. Bulky hypertrophic facet arthropathy present throughout the lumbar spine. Mild bilateral sacroiliac arthrosis. Paraspinal soft tissues unremarkable. XR/XR lumbar spine 2-3V IMPRESSION: No acute findings. Lumbar spondylosis and associated scoliosis as described.
== END 2021-11-09 10:30 | disposition home or self-care (01) ==
LOC: HO.XRAY 10:29
PROVIDERS: PCP Internal Medicine; Visit Provider Nurse Practitioner Family
DX: M54.2 Cervicalgia (principal); M53.3 Sacrococcygeal disorders, not elsewhere classified; M47.816 Spondylosis without myelopathy or radiculopathy, lumbar region; J30.2 Other seasonal allergic rhinitis; F41.8 Other specified anxiety disorders; F10.20 Alcohol dependence, uncomplicated; Z90.49 Acquired absence of other specified parts of digestive tract; Z88.8 Allergy status to other drugs, medicaments and biological substances; Z91.018 Allergy to other foods; Z79.899 Other long term (current) drug therapy
CPT/HCPCS: 72040; 72100; 99212

== ENCOUNTER 2021-12-01 08:00 | Outpatient (RCR) | payer MEDICARE, OTHER, SELFPAY | END 2021-12-07 10:15 | disposition home or self-care (01) | LOC: HO.WCC 08:00 | PROVIDERS: PCP Internal Medicine; Visit Provider Surgery | DX: L98.421 Non-pressure chronic ulcer of back limited to breakdown of skin (principal); I10 Essential (primary) hypertension; F17.210 Nicotine dependence, cigarettes, uncomplicated | CPT/HCPCS: 97597; 99212 ==

== ENCOUNTER 2022-01-31 09:29 | Outpatient (REF) | payer MEDICARE, OTHER, SELFPAY ==
[2022-01-31 09:49] LABS: MANUAL DIFF FLAG NO
[2022-01-31 10:33] LABS: Basophils Percent Auto 0.4 % (0-2); Eosinophils Absolute Auto 0.1 X10*3/uL (0.0-0.4); Eosinophils Percent Auto 1.3 % (0-4); Hematocrit 38.8 % (37.0-47.0); Hemoglobin 12.6 g/dl (12.0-16.0); Imm Gran Abs Auto 0.02 X10*3/uL (0.00-0.03); Imm Gran Pct Auto 0.3 % (0.0-0.4); Lymphocytes Absolute Auto 1.3 X10*3/uL (1.2-4.9); Lymphocytes Percent Auto 17.4 % (20-40); Mean Corpuscular HGB Conc 32.5 g/dl (31.0-35.0); Mean Corpuscular Hemoglobin 28.4 pg (27.0-33.0); Mean Corpuscular Volume 87.6 fL (80.0-98.0); Mean Platelet Volume 8.5 fL (9.4-12.3); Monocytes Absolute Auto 1.1 X10*3/uL (0.1-1.2); Monocytes Percent Auto 14.2 % (2-11); Neutrophils Absolute Auto 4.9 x10*3/uL (2.0-8.3); Neutrophils Percent Auto 66.4 % (45-73); Platelet Count 549 X10*3/uL (160-400); Red Blood Count 4.43 X10*6/uL (4.20-5.50); Red Cell Distribution Width 12.4 % (11.0-16.0); White Blood Count 7.4 X10*3/uL (4.8-10.8)
[2022-01-31 11:20] LABS: Alanine Aminotransferase 27 U/L (0-31); Albumin Level 4.2 g/dL (3.5-5.0); Alkaline Phosphatase 96 U/L (39-117); Anion Gap 13 (12-20); Aspartate Amino Transferase 25 U/L (5-31); Bilirubin Total 0.3 mg/dL (0.0-1.0); Blood Urea Nitrogen 5 mg/dL (9-16); Calcium 9.2 mg/dL (8.4-10.2); Carbon Dioxide 28 mmol/L (22-29); Chloride 101 mmol/L (96-108); Cholesterol 135 mg/dL; Estimated Glomerular Filt Rate > 60; Glucose Random 115 mg/dL (60-115); HDL Cholesterol 46 mg/dL; LDL Cholesterol Calculated 71 mg/dl; Sodium 138 mmol/L (135-145); Total Protein 6.9 g/dL (6.5-8.0); Triglycerides 90 mg/dL
== END 2022-01-31 09:30 | disposition home or self-care (01) ==
LOC: HO.LAB 09:29
PROVIDERS: PCP Internal Medicine; Visit Provider Internal Medicine
DX: Z00.00 Encounter for general adult medical examination without abnormal findings (principal); E11.65 Type 2 diabetes mellitus with hyperglycemia; I10 Essential (primary) hypertension
CPT/HCPCS: 36415; 80053; 80061; 85025

== ENCOUNTER 2022-03-05 14:20 | Emergency (ER) | payer MEDICARE, OTHER, SELFPAY ==
[2022-03-05 14:28] VITALS: BP 136/82; PULSE 88; RESP 18; TEMP 36.9; O2SAT 98; BMI 22.3
[2022-03-05 15:05] LABS: MANUAL DIFF FLAG NO
[2022-03-05 15:06] LABS: Basophils Absolute Auto 0.1 X10*3/uL (0.0-0.2); Basophils Percent Auto 0.3 % (0-2); Eosinophils Absolute Auto 0.1 X10*3/uL (0.0-0.4); Eosinophils Percent Auto 0.6 % (0-4); Hematocrit 34.5 % (37.0-47.0); Hemoglobin 11.4 g/dl (12.0-16.0); Imm Gran Abs Auto 0.05 X10*3/uL (0.00-0.03); Imm Gran Pct Auto 0.3 % (0.0-0.4); Lymphocytes Absolute Auto 1.8 X10*3/uL (1.2-4.9); Lymphocytes Percent Auto 11.2 % (20-40); Mean Corpuscular Hemoglobin 28.2 pg (27.0-33.0); Mean Corpuscular Volume 85.4 fL (80.0-98.0); Mean Platelet Volume 8.5 fL (9.4-12.3); Monocytes Percent Auto 6.1 % (2-11); Neutrophils Percent Auto 81.5 % (45-73); Platelet Count 592 X10*3/uL (160-400); Red Blood Count 4.04 X10*6/uL (4.20-5.50); Red Cell Distribution Width 13.8 % (11.0-16.0); White Blood Count 15.9 X10*3/uL (4.8-10.8)
[2022-03-05 15:14] LABS: INTERNATIONAL NORM RATIO 1.1 (0.9-1.1)
[2022-03-05 15:18] LABS: Lactic Acid 1.6 mmol/L (0.5-2.0)
[2022-03-05 15:21] LABS: Alanine Aminotransferase 16 U/L (0-31); Albumin Level 4.4 g/dL (3.5-5.0); Alkaline Phosphatase 99 U/L (39-117); Anion Gap 17 (12-20); Aspartate Amino Transferase 18 U/L (5-31); Bilirubin Total 0.6 mg/dL (0.0-1.0); Blood Urea Nitrogen 8 mg/dL (9-16); C Reactive Protein 23.07 mg/dL (< or = 0.50); Calcium 9.4 mg/dL (8.4-10.2); Carbon Dioxide 26 mmol/L (22-29); Chloride 92 mmol/L (96-108); Creatinine Clr Calc Pharmacy 64.5; Estimated Glomerular Filt Rate > 60; Glucose Random 151 mg/dL (60-115); Magnesium 1.9 mg/dL (1.6-2.6); Potassium 3.4 mmol/L (3.3-5.1); Sodium 132 mmol/L (135-145); Total Protein 7.5 g/dL (6.5-8.0)
[2022-03-05 15:45] LABS: Erythrocyte Sedimentation Rate 48 MM/HR (0-20)
[2022-03-05] MEDS: predniSONE 20 MG TABLET 60 MG PO (16:13)
[2022-03-05] MEDS: oxyCODONE HCl Immed Release 5 MG TABLET PO (16:14)
[2022-03-05] MEDS: cephALEXin 500 MG CAPSULE PO (16:15)
--- NOTE | 2022-03-05 16:25 | ED.GENADULT ---
HPI - General Adult General Chief complaint: General Medical Stated complaint: Swollen/red ankles Time Seen by Provider: 03/05/22 14:35 Related Data Home Medications Medication Instructions Recorded Confirmed gabapentin 100 mg capsule 100 mg PO TID 05/11/21 11/09/21 mirtazapine 30 mg tablet 30 mg PO BEDTIME 05/11/21 11/09/21 Previous Rx's Medication Instructions Recorded dicyclomine 10 mg capsule See Rx Instructions .Route 10/12/20 .COMPLEX PRN abdominal discomfort #60 caps ondansetron HCl 4 mg tablet 4 mg PO Q6H PRN nausea and 03/18/21 (Zofran) vomiting #10 tabs back brace #1 ea 07/05/21 back brace #1 ea 07/05/21 acetaminophen 500 mg tablet 1,000 mg PO QID PRN fever or pain 03/05/22 (Tylenol Extra Strength) #14 tabs cephalexin 500 mg capsule 500 mg PO Q6H 10 days #40 caps 03/05/22 doxycycline monohydrate 100 mg 100 mg PO BID 10 days #20 tabs 03/05/22 tablet ibuprofen 800 mg tablet 800 mg PO Q8H PRN pain #14 tabs 03/05/22 Allergies Allergy/AdvReac Type Severity Reaction Status Date / Time levofloxacin [From LEVAQUIN] Allergy Unknown THROAT Verified 03/05/22 14:28 SWELLS mushroom AdvReac Mild STOMACH Verified 03/05/22 14:28 UPSET PMFSH Past Medical History Medical History Anxiety Depression ETOH abuse Lower extremity surgery planned Sacroiliac joint pain Seasonal allergies Surgical History Hx of cholecystectomy Social History Social History (Updated 05/25/21 @ 12:46 by Nixon Perdomo) Alcohol intake: current Alcohol intake frequency: 3 or more drinks per day Alcohol type: hard liquor Patient Tobacco Use Status: Current everyday Tobacco user Advance Directives: Yes Advance Directives Information Provided: Yes Advance Directives on File: No Current occupational status: retired Current occupation: rt handed Physical Exam ED Vital Signs: Vital Signs - 24 hr 03/05/22 14:28 Temperature 98.4 F Pulse Rate 88 Respiratory Rate 18 Blood Pressure 136/82 Pulse Oximetry 98 Oxygen Delivery Method Room Air BMI result Body Mass Index 22.3 Medical Decision Making Lab Data Result diagrams: 03/05/22 14:56 03/05/22 14:56 Labs: Lab Results 03/05/22 03/05/22 03/05/22 Range/Units 14:56 14:56 14:56 WBC 15.9 H (4.8-10.8) X10*3/uL RBC 4.04 L (4.20-5.50) X10*6/uL Hgb 11.4 L (12.0-16.0) g/dl Hct 34.5 L (37.0-47.0) % MCV 85.4 (80.0-98.0) fL MCH 28.2 (27.0-33.0) pg MCHC 33.0 (31.0-35.0) g/dl RDW 13.8 (11.0-16.0) % Plt Count 592 H (160-400) X10*3/uL MPV 8.5 L (9.4-12.3) fL Immature Gran % (Auto) 0.3 (0.0-0.4) % Neut % (Auto) 81.5 H (45-73) % Lymph % (Auto) 11.2 L (20-40) % [place] % (Auto) 6.1 (2-11) % Eos % (Auto) 0.6 (0-4) % Baso % (Auto) 0.3 (0-2) % Lymph # (Auto) 1.8 (1.2-4.9) X10*3/uL [place] # (Auto) 1.0 (0.1-1.2) X10*3/uL Eos # (Auto) 0.1 (0.0-0.4) X10*3/uL Baso # (Auto) 0.1 (0.0-0.2) X10*3/uL Abs Immat Gran (auto) 0.05 H (0.00-0.03) X10*3/uL Absolute Neuts (auto) 13.0 H (2.0-8.3) x10*3/uL Absolute Nucleated RBC 0.000 (0.0-0.012) X10*3/uL Nucleated RBC % (auto) 0.0 (0.0-0.2) /100WBC ESR 48 H (0-20) MM/HR PT 13.0 (10.0-13.1) SEC INR 1.1 (0.9-1.1) Sodium (135-145) mmol/L Potassium (3.3-5.1) mmol/L Chloride (96-108) mmol/L Carbon Dioxide (22-29) mmol/L Anion Gap (12-20) BUN (9-16) mg/dL Creatinine (0.5-1.4) mg/dL Estim Creat Clear Calc Estimated GFR Random Glucose (60-115) mg/dL Lactic Acid (0.5-2.0) mmol/L Calcium (8.4-10.2) mg/dL Magnesium (1.6-2.6) mg/dL Total Bilirubin (0.0-1.0) mg/dL AST (5-31) U/L ALT (0-31) U/L Alkaline Phosphatase (39-117) U/L C-Reactive Protein (< or = 0.50) mg/dL Total Protein (6.5-8.0) g/dL Albumin (3.5-5.0) g/dL 03/05/22 03/05/22 Range/Units 14:56 14:56 WBC (4.8-10.8) X10*3/uL RBC (4.20-5.50) X10*6/uL Hgb (12.0-16.0) g/dl Hct (37.0-47.0) % MCV (80.0-98.0) fL MCH (27.0-33.0) pg MCHC (31.0-35.0) g/dl RDW (11.0-16.0) % Plt Count (160-400) X10*3/uL MPV (9.4-12.3) fL Immature Gran % (Auto) (0.0-0.4) % Neut % (Auto) (45-73) % Lymph % (Auto) (20-40) % [place] % (Auto) (2-11) % Eos % (Auto) (0-4) % Baso % (Auto) (0-2) % Lymph # (Auto) (1.2-4.9) X10*3/uL [place] # (Auto) (0.1-1.2) X10*3/uL Eos # (Auto) (0.0-0.4) X10*3/uL Baso # (Auto) (0.0-0.2) X10*3/uL Abs Immat Gran (auto) (0.00-0.03) X10*3/uL Absolute Neuts (auto) (2.0-8.3) x10*3/uL Absolute Nucleated RBC (0.0-0.012) X10*3/uL Nucleated RBC % (auto) (0.0-0.2) /100WBC ESR (0-20) MM/HR PT (10.0-13.1) SEC INR (0.9-1.1) Sodium 132 L (135-145) mmol/L Potassium 3.4 (3.3-5.1) mmol/L Chloride 92 L (96-108) mmol/L Carbon Dioxide 26 (22-29) mmol/L Anion Gap 17 (12-20) BUN 8 L D (9-16) mg/dL Creatinine 0.77 (0.5-1.4) mg/dL Estim Creat Clear Calc 64.5 Estimated GFR > 60 Random Glucose 151 H (60-115) mg/dL Lactic Acid 1.6 (0.5-2.0) mmol/L Calcium 9.4 (8.4-10.2) mg/dL Magnesium 1.9 (1.6-2.6) mg/dL Total Bilirubin 0.6 (0.0-1.0) mg/dL AST 18 (5-31) U/L ALT 16 (0-31) U/L Alkaline Phosphatase 99 (39-117) U/L C-Reactive Protein 23.07 H (< or = 0.50) mg/dL Total Protein 7.5 (6.5-8.0) g/dL Albumin 4.4 (3.5-5.0) g/dL Discharge Plan Discharge Clinical Impression: Acute hyponatremia, Cellulitis, Contact dermatitis Patient Disposition: Home, Self-Care Instructions: Contact Dermatitis (ED), Cellulitis (ED), Hyponatremia (ED), Warm Compress or Soak (ED) Prescriptions: New doxycycline monohydrate 100 mg tablet 100 mg PO BID 10 Days Qty: 20 0RF cephalexin 500 mg capsule 500 mg PO Q6H 10 Days Qty: 40 0RF acetaminophen [Tylenol Extra Strength] 500 mg tablet 1,000 mg PO QID PRN (Reason: fever or pain) Qty: 14 0RF ibuprofen 800 mg tablet 800 mg PO Q8H PRN (Reason: pain) Qty: 14 0RF No Action (DME) back brace Misc See Rx Instructions .Route Qty: 1 0RF Rx Instructions: As directed (DME) back brace Misc See Rx Instructions .Route Qty: 1 0RF Rx Instructions: As directed dicyclomine 10 mg capsule See Rx Instructions .ROUTE .COMPLEX PRN (Reason: abdominal discomfort) Qty: 60 0RF Rx Instructions: 1-2 capsules prn TID ondansetron HCl [Zofran] 4 mg tablet 4 mg PO Q6H PRN (Reason: nausea and vomiting) Qty: 10 0RF gabapentin 100 mg capsule 100 mg PO TID mirtazapine 30 mg tablet 30 mg PO BEDTIME Referrals: Milagros Gutierrez MD [Primary Care Provider] - 2 days Print Language: [place]
--- NOTE | 2022-03-05 16:30 | ED_ITS ---
HPI - Extremity Problem General Chief complaint: General Medical Stated complaint: Swollen/red ankles Time Seen by Provider: 03/05/22 14:35 Source: patient and family Mode of arrival: ambulatory Limitations: no limitations History of Present Illness HPI Narrative: 62-year-old female with a past medical history of alcohol usage, alcoholic fatty liver, hyperglycemia, alcoholic pallor a neuropathy, Ramona-Caro tear who is presenting to the ED with complaints of bilateral leg pain/swelling/redness since Sunday/ after she was walking on her friends lawn/grass and began to have some itchiness. She reports that a few days ago she developed the redness and it is now spreading up her legs. She reports she went to the urgent care and they recommended her to come here for IV antibiotics. She denies any fevers, chills, dizziness, headaches, neck pain/stiffness, trouble swallowing or breathing, chest pain or shortness of breath, dyspnea on exertion, orthopnea, palpitations, paresthesias, nausea/vomiting/diarrhea constipation, abdominal pain, back pain, flank pain, recent falls or trauma, calf tenderness, recent travel, recent immobilization, history of DVT or PE, any estrogen usage or any other symptoms complaints or concerns at this time. MD Complaint: extremity pain and extremity swelling Onset (ago): day(s) (4) Pain Consistency: constant Location: left, right and lower extremity Severity scale (1-10): >10 Quality: burning, aching, constant and other (Itchy) Radiation: proximal Relieving factors: nothing Exacerbating factors: walking and palpation Associated symptoms: denies other symptoms Related Data Home Medications Medication Instructions Recorded Confirmed gabapentin 100 mg capsule 100 mg PO TID 05/11/21 11/09/21 mirtazapine 30 mg tablet 30 mg PO BEDTIME 05/11/21 11/09/21 Previous Rx's Medication Instructions Recorded dicyclomine 10 mg capsule See Rx Instructions .Route 10/12/20 .COMPLEX PRN abdominal discomfort #60 caps ondansetron HCl 4 mg tablet 4 mg PO Q6H PRN nausea and 03/18/21 (Zofran) vomiting #10 tabs back brace #1 ea 07/05/21 back brace #1 ea 07/05/21 acetaminophen 500 mg tablet 1,000 mg PO QID PRN fever or pain 03/05/22 (Tylenol Extra Strength) #14 tabs cephalexin 500 mg capsule 500 mg PO Q6H 10 days #40 caps 03/05/22 doxycycline monohydrate 100 mg 100 mg PO BID 10 days #20 tabs 03/05/22 tablet ibuprofen 800 mg tablet 800 mg PO Q8H PRN pain #14 tabs 03/05/22 Allergies Allergy/AdvReac Type Severity Reaction Status Date / Time levofloxacin [From LEVAQUIN] Allergy Unknown THROAT Verified 03/05/22 14:28 SWELLS mushroom AdvReac Mild STOMACH Verified 03/05/22 14:28 UPSET Review of Systems Review of Systems: Constitutional : No Weight loss, No Fever, No Chills, No Night Sweats, No Fatigue, No Malaise ENT/Mouth : No Hearing loss, No Ear Pain, No Nasal Congestion, No Sinus Pain, No Hoarseness, No sore throat, No Rhinorrhea, No Swallowing Difficulty Eyes: No Eye Pain, No Swelling, No Redness, No Foreign Body, No Discharge, No Vision Changes Cardiovascular : No Chest Pain, No SOB, No Dyspnea on Exertion, No Orthopnea, + Edema, No Palpitations Respiratory : No Cough, No Sputum, No Wheezing, No Smoke Exposure, No Dyspnea Gastrointestinal : No Nausea, No Vomiting, No Diarrhea, No Constipation, No abdominal Pain, No Hematochezia, No Melena Genitourinary : no irregular bleeding, No Dysuria, No Urinary Frequency, No Hematuria, No Urinary Incontinence, No Urgency, No Flank Pain, No Urinary Flow Changes, No Hesitancy Musculoskeletal : No joint pain, No Myalgias, No Joint Swelling Skin : + Skin Lesions/rash to b/l lower extremities Neuro : No Weakness, No Numbness, No Paresthesias, No Loss of Consciousness, No Dizziness, No Headache Psych : No Anxiety/Panic, No Depression, No SI/HI/AH/VH, No Social Issues, Heme/Lymph: No Bruising, No Bleeding,No Lymphadenopathy Endocrine : No Polyuria, No Polydipsia, No Temperature Intolerance Yes all other systems are reviewed and are negative [facility] Past Medical History Attestation statement: The following information was validated with the patient. Source: old records reviewed, obtained from family and nursing notes reviewed Medical History Anxiety Depression ETOH abuse Lower extremity surgery planned Sacroiliac joint pain Seasonal allergies Surgical History Hx of cholecystectomy Social History Social History Alcohol intake: current Alcohol intake frequency: 3 or more drinks per day Alcohol type: hard liquor Patient Tobacco Use Status: Current everyday Tobacco user Advance Directives: Yes Advance Directives Information Provided: Yes Advance Directives on File: No Current occupational status: retired Current occupation: rt handed Physical Exam Vital Signs: Vital Signs: Last Vital Signs Temp 98.4 F 03/05/22 14:28 Pulse 88 03/05/22 14:28 Resp 18 03/05/22 14:28 BP 136/82 03/05/22 14:28 Pulse Ox 98 03/05/22 14:28 O2 Del Method 03/05/22 14:28 BMI result Body Mass Index 22.3 vital signs have been reviewed as normal and appeared to be correct. Blood pressure normal. Heart rate normal. Respiration rate normal. Temperature normal. Oxygen saturation normal. Appearance: Alert. Oriented X3. No acute distress. Head: Normal external exam. Normocephalic. Atraumatic. Eyes: PERRLA. EOMI. Conjunctiva and sclera normal. Eyelids normal. ENT: Pharynx normal. Uvula midline. Moist mucous membranes. No lesio ns/ulcerations or masses noted on the tongue. Normal voice. No trismus noted. No drooling noted. No muffled voice noted. Neck: Normal inspection. Neck supple. FROM. No adenopathy. Thyroid Normal. No meningeal signs. No neck mass noted. CVS: Normal heart rate and rhythm. Heart sound normal. Pulses normal throughout. No murmurs/rales/gallops. Respiratory: No respiratory distress. Painless inspiration. Breath sounds normal. No wheezes/rales/rhonchi noted. Chest nontender. No accessory muscle usage noted or decreased air movement noted. Abdomen: Soft and nontender. Bowel sounds normal in all 4 quadrants. No distention noted. No organomegaly noted. No visible injury noted. Back: No CVA tenderness. Full range of motion noted. Nontender. No signs of trauma. Patient neuro intact bilaterally and distally on all 4 extremities. Patient's reflexes intact bilaterally and distally on all 4 extremities. No rashes/lesion/induration/fluctuance or signs of infection noted. Skin: Skin warm and dry. Normal skin color. Normal skin turgor. No rashes/lesions/lacerations noted. Extremities: Patient with bilateral erythema/soft tissue swelling and warm to touch with mild tenderness palpation to bilateral ankles worse on the left than the right. It appears possibly be like a contact dermatitis versus cellulitis or both. No streaking/induration/fluctuance or foreign bodies noted. Otherwise all other extremities exhibit normal range of motion nontender. No calf tenderness is noted. No lower extremity edema or pitting edema noted. Pictures below. Neuro: Oriented X 3. No motor deficit. No sensory deficit. Reflexes normal. Normal steady gait. No focal neuro deficits noted. CN's II-XII intact bilaterally? Vascular: + radial pulses/+ 2 distal pedal pulses/+2 dorsalis pedis b/l. Normal cap refill. No cyanosis noted to upper extremity nails and lower extremity toes nails. Course Course Course Narrative: - 62-year-old female with a past medical history of alcohol usage, alcoholic fatty liver, hyperglycemia, alcoholic pallor a neuropathy, Ramona-Caro tear who is presenting to the ED with complaints of bilateral leg pain/swelling/redness since Sunday/ after she was walking on her friends lawn/grass and began to have some itchiness. She reports that a few days ago she developed the redness and it is now spreading up her legs. Labs were obtained while the patient was in the waiting room and [place] [id number]. Mild anemia. High platelet count 592 which is similar compared to prior. ESR is 48. Sodium 132. Random glucose 151. CRP 23.07 otherwise all other labs are within normal limits. I discussed this case with Dr. Cotter when she reports that she does not believe this patient needs IV antibiotics at this time as patient has not had any antibiotics and it appears possibly like a contact/allergic reaction or possibly even poison nolvia although with possibly superimposed with cellulitis th erefore will treat with steroids and p.o. antibiotics and instructions return if she develops any fevers any worsening symptoms such as streaking up the leg. Will also instruct patient to increase her fluids due to her sodium level 132. Patient with at bedside understand agree this plan. MDM - Extremity (Nontraumatic) Medical Records Attestation: I reviewed the patient's medical records. Lab Data Attestation: I reviewed the patient's lab results. Result diagrams: 03/05/22 14:56 03/05/22 14:56 Labs: Lab Results 03/05/22 03/05/22 03/05/22 Range/Units 14:56 14:56 14:56 WBC 15.9 H (4.8-10.8) X10*3/uL RBC 4.04 L (4.20-5.50) X10*6/uL Hgb 11.4 L (12.0-16.0) g/dl Hct 34.5 L (37.0-47.0) % MCV 85.4 (80.0-98.0) fL MCH 28.2 (27.0-33.0) pg MCHC 33.0 (31.0-35.0) g/dl RDW 13.8 (11.0-16.0) % Plt Count 592 H (160-400) X10*3/uL MPV 8.5 L (9.4-12.3) fL Immature Gran % (Auto) 0.3 (0.0-0.4) % Neut % (Auto) 81.5 H (45-73) % Lymph % (Auto) 11.2 L (20-40) % [place] % (Auto) 6.1 (2-11) % Eos % (Auto) 0.6 (0-4) % Baso % (Auto) 0.3 (0-2) % Lymph # (Auto) 1.8 (1.2-4.9) X10*3/uL [place] # (Auto) 1.0 (0.1-1.2) X10*3/uL Eos # (Auto) 0.1 (0.0-0.4) X10*3/uL Baso # (Auto) 0.1 (0.0-0.2) X10*3/uL Abs Immat Gran (auto) 0.05 H (0.00-0.03) X10*3/uL Absolute Neuts (auto) 13.0 H (2.0-8.3) x10*3/uL Absolute Nucleated RBC 0.000 (0.0-0.012) X10*3/uL Nucleated RBC % (auto) 0.0 (0.0-0.2) /100WBC ESR 48 H (0-20) MM/HR PT 13.0 (10.0-13.1) SEC INR 1.1 (0.9-1.1) Sodium (135-145) mmol/L Potassium (3.3-5.1) mmol/L Chloride (96-108) mmol/L Carbon Dioxide (22-29) mmol/L Anion Gap (12-20) BUN (9-16) mg/dL Creatinine (0.5-1.4) mg/dL Estim Creat Clear Calc Estimated GFR Random Glucose (60-115) mg/dL Lactic Acid (0.5-2.0) mmol/L Calcium (8.4-10.2) mg/dL Magnesium (1.6-2.6) mg/dL Total Bilirubin (0.0-1.0) mg/dL AST (5-31) U/L ALT (0-31) U/L Alkaline Phosphatase (39-117) U/L C-Reactive Protein (< or = 0.50) mg/dL Total Protein (6.5-8.0) g/dL Albumin (3.5-5.0) g/dL 03/05/22 03/05/22 Range/Units 14:56 14:56 WBC (4.8-10.8) X10*3/uL RBC (4.20-5.50) X10*6/uL Hgb (12.0-16.0) g/dl Hct (37.0-47.0) % MCV (80.0-98.0) fL MCH (27.0-33.0) pg MCHC (31.0-35.0) g/dl RDW (11.0-16.0) % Plt Count (160-400) X10*3/uL MPV (9.4-12.3) fL Immature Gran % (Auto) (0.0-0.4) % Neut % (Auto) (45-73) % Lymph % (Auto) (20-40) % [place] % (Auto) (2-11) % Eos % (Auto) (0-4) % Baso % (Auto) (0-2) % Lymph # (Auto) (1.2-4.9) X10*3/uL [place] # (Auto) (0.1-1.2) X10*3/uL Eos # (Auto) (0.0-0.4) X10*3/uL Baso # (Auto) (0.0-0.2) X10*3/uL Abs Immat Gran (auto) (0.00-0.03) X10*3/uL Absolute Neuts (auto) (2.0-8.3) x10*3/uL Absolute Nucleated RBC (0.0-0.012) X10*3/uL Nucleated RBC % (auto) (0.0-0.2) /100WBC ESR (0-20) MM/HR PT (10.0-13.1) SEC INR (0.9-1.1) Sodium 132 L (135-145) mmol/L Potassium 3.4 (3.3-5.1) mmol/L Chloride 92 L (96-108) mmol/L Carbon Dioxide 26 (22-29) mmol/L Anion Gap 17 (12-20) BUN 8 L D (9-16) mg/dL Creatinine 0.77 (0.5-1.4) mg/dL Estim Creat Clear Calc 64.5 Estimated GFR > 60 Random Glucose 151 H (60-115) mg/dL Lactic Acid 1.6 (0.5-2.0) mmol/L Calcium 9.4 (8.4-10.2) mg/dL Magnesium 1.9 (1.6-2.6) mg/dL Total Bilirubin 0.6 (0.0-1.0) mg/dL AST 18 (5-31) U/L ALT 16 (0-31) U/L Alkaline Phosphatase 99 (39-117) U/L C-Reactive Protein 23.07 H (< or = 0.50) mg/dL Total Protein 7.5 (6.5-8.0) g/dL Albumin 4.4 (3.5-5.0) g/dL Discharge Plan Discharge Clinical Impression: Acute hyponatremia, Cellulitis, Contact dermatitis Patient Disposition: Home, Self-Care Instructions: Contact Dermatitis (ED), Cellulitis (ED), Hyponatremia (ED), Warm Compress or Soak (ED) Prescriptions: New doxycycline monohydrate 100 mg tablet 100 mg PO BID 10 Days Qty: 20 0RF cephalexin 500 mg capsule 500 mg PO Q6H 10 Days Qty: 40 0RF acetaminophen [Tylenol Extra Strength] 500 mg tablet 1,000 mg PO QID PRN (Reason: fever or pain) Qty: 14 0RF ibuprofen 800 mg tablet 800 mg PO Q8H PRN (Reason: pain) Qty: 14 0RF No Action (DME) back brace Misc See Rx Instructions .Route Qty: 1 0RF Rx Instructions: As directed (DME) back brace Misc See Rx Instructions .Route Qty: 1 0RF Rx Instructions: As directed dicyclomine 10 mg capsule See Rx Instructions .ROUTE .COMPLEX PRN (Reason: abdominal discomfort) Qty: 60 0RF Rx Instructions: 1-2 capsules prn TID ondansetron HCl [Zofran] 4 mg tablet 4 mg PO Q6H PRN (Reason: nausea and vomiting) Qty: 10 0RF gabapentin 100 mg capsule 100 mg PO TID mirtazapine 30 mg tablet 30 mg PO BEDTIME Referrals: Milagros Gutierrez MD [Primary Care Provider] - 2 days Print Language: Hebrew
== END 2022-03-05 17:06 | disposition home or self-care (01) ==
PROVIDERS: Physician Assistant Medical; Emergency Provider Student in an Organized Health Care Education/Training Program; PCP Internal Medicine
DX: L25.9 Unspecified contact dermatitis, unspecified cause (principal); E87.1 Hypo-osmolality and hyponatremia; R60.0 Localized edema; L03.116 Cellulitis of left lower limb; L03.115 Cellulitis of right lower limb; Z79.899 Other long term (current) drug therapy; F17.200 Nicotine dependence, unspecified, uncomplicated; Z71.6 Tobacco abuse counseling
CPT/HCPCS: 36415; 80053; 83605; 83735; 85025; 85610; 85652; 86140; 87040; 99283

== ENCOUNTER 2022-03-23 09:02 | Outpatient (REF) | payer MEDICARE, OTHER, SELFPAY ==
[2022-03-23 09:16] LABS: MANUAL DIFF FLAG NO
[2022-03-23 09:30] LABS: Basophils Absolute Auto 0.1 X10*3/uL (0.0-0.2); Basophils Percent Auto 0.8 % (0-2); Eosinophils Absolute Auto 0.2 X10*3/uL (0.0-0.4); Hematocrit 39.4 % (37.0-47.0); Imm Gran Abs Auto 0.01 X10*3/uL (0.00-0.03); Imm Gran Pct Auto 0.2 % (0.0-0.4); Lymphocytes Absolute Auto 2.1 X10*3/uL (1.2-4.9); Lymphocytes Percent Auto 32.9 % (20-40); Mean Corpuscular Hemoglobin 28.6 pg (27.0-33.0); Mean Corpuscular Volume 86.8 fL (80.0-98.0); Monocytes Absolute Auto 0.9 X10*3/uL (0.1-1.2); Monocytes Percent Auto 14.9 % (2-11); Neutrophils Percent Auto 48.2 % (45-73); Platelet Count 447 X10*3/uL (160-400); Red Blood Count 4.54 X10*6/uL (4.20-5.50); Red Cell Distribution Width 15.9 % (11.0-16.0); White Blood Count 6.3 X10*3/uL (4.8-10.8)
[2022-03-23 09:59] LABS: Alanine Aminotransferase 15 U/L (0-31); Albumin Level 4.3 g/dL (3.5-5.0); Alkaline Phosphatase 119 U/L (39-117); Anion Gap 14 (12-20); Aspartate Amino Transferase 24 U/L (5-31); Bilirubin Total 0.4 mg/dL (0.0-1.0); Blood Urea Nitrogen 4 mg/dL (9-16); Calcium 9.1 mg/dL (8.4-10.2); Carbon Dioxide 30 mmol/L (22-29); Chloride 99 mmol/L (96-108); Cholesterol 198 mg/dL; Estimated Glomerular Filt Rate > 60; Glucose Random 116 mg/dL (60-115); HDL Cholesterol 64 mg/dL; LDL Cholesterol Calculated 94 mg/dl; Potassium 3.9 mmol/L (3.3-5.1); Sodium 139 mmol/L (135-145); Total Protein 7.5 g/dL (6.5-8.0); Triglycerides 204 mg/dL
== END 2022-03-23 09:03 | disposition home or self-care (01) ==
LOC: HO.LAB 09:02
PROVIDERS: PCP Internal Medicine; Visit Provider Internal Medicine
DX: E78.00 Pure hypercholesterolemia, unspecified (principal); F10.11 Alcohol abuse, in remission; I10 Essential (primary) hypertension; Z72.0 Tobacco use
CPT/HCPCS: 36415; 80053; 80061; 85025

== ENCOUNTER 2022-06-21 10:52 | Outpatient (REF) | payer MEDICARE, OTHER, SELFPAY ==
--- NOTE | ~2022-06-21 | MM_ITS ---
EXAMINATION: MM SCREENING DIGITAL BREAST TOMOSYNTHESIS, BILATERAL CLINICAL INFORMATION: Screening. Asymptomatic. The lifetime risk of breast cancer based on the Tyrer-Cuzick Model is 10%. COMPARISON: Mammography: 05/16/2021, 02/23/2020, 10/03/2018, 03/28/2018, 07/19/2017 TECHNIQUE: Digital breast tomosynthesis is performed in both the craniocaudal and mediolateral oblique views along with computer-aided detection (CAD). Synthesized 2D images are generated from the tomosynthesis. FINDINGS: There are scattered areas of fibroglandular density (ACR BI-RADS breast composition Category b). There are no significant masses, abnormal calcifications, or other abnormalities. There are scattered shifting fibroglandular parenchymal densities related to variation in positioning. No developing density or architectural abnormality. The axilla and skin contours are unremarkable. No significant changes. MM/MM tomosynthesis screening BI IMPRESSION: No mammographic evidence of malignancy. ASSESSMENT: BI-RADS 2: Benign RECOMMENDATION: Routine annual mammography screening. This patient's information was entered into a reminder system with a target due date for their next mammogram.
--- NOTE | ~2022-06-21 | MM_ITS ---
EXAMINATION: BONE DENSITOMETRY CLINICAL INDICATION: Osteoporosis. COMPARISON: Baseline BD dated 09/27/2012. TECHNIQUE: Using a [employer] DXA System (software version: 13.1) manufactured by [employer], dual-energy x-ray absorptiometry was performed of the lumbar spine and left hip. The images are of good technical quality. Summary results are attached. FINDINGS: AP SPINE L1-L4: Current: BMD 1.293 g/cm2, Z-score 2.7, T-score 0.9, normal, 1.7% increase from baseline (<5% change is not significant). Baseline: BMD 1.272 g/cm2. LEFT FEMUR, NECK: Current: BMD 0.875 g/cm2, Z-score 0.4, T-score -1.2, osteopenia. Baseline: BMD 0.961 g/cm2. LEFT FEMUR, TOTAL: Current: BMD 0.890 g/cm2, Z-score 0.4, T-score -0.9, normal, 4.8% decrease from baseline (<5% change is not significant). Baseline: BMD 0.935 g/cm2. IDENTIFIED RISK FACTORS: Menopause, tobacco use (current smoker), history of fracture (adult), family history (parent hip fracture), alcohol (3 or more units per day). HISTORY OF FRACTURE: Wrist, largest extremity. MEDICATIONS: Calcium, vitamin D. MM/XR DEXA axial skeleton IMPRESSION: 1. DIAGNOSIS: Osteopenia based on the lowest T-score value of -1.2 in the femoral neck applying World Health Organization criteria. 2. 10-YEAR FRACTURE RISK PREDICTION, FRAX: Major osteoporotic fracture (clinical spine, forearm, hip or shoulder) 27.3%. Hip fracture 2.8%. 3. Treatment Recommendations: NOF guidelines recommend consideration for treatment in postmenopausal women and men age 50 and older presenting with the following: -A hip or vertebral (clinical or morphometric) fracture. -T-score less than or equal to -2.5 at the femoral neck or spine after appropriate evaluation to exclude secondary causes. -Low bone mass at the hip or spine and a 10-year fracture probability by FRAX of greater than or equal to 3% for hip fracture or greater than or equal to 20% for major osteoporotic fracture based on the [place] adapted WHO algorithm. 4. Other Recommendations: All treatment decisions require clinical judgment and consideration of individual patient factors, including patient preferences, comorbidities, previous drug use, risk factors not captured in the FRAX model (e.g. frailty, falls, vitamin D deficiency, increased bone turnover, interval significant decline in bone density) and possible under or overestimation of fracture risk by FRAX. Additional medical evaluation for secondary cause of low bone mineral density may be appropriate. FUTURE SCAN RECOMMENDATION: People with diagnosed cases of osteoporosis or at high risk for fracture should have regular bone mineral density tests. For patients eligible for Medicare, routine testing is allowed once every 2 years. The testing frequency can be increased to one year for patients who have rapidly progressing disease, those who are receiving or discontinuing medical therapy to restore bone mass, or have additional risk factors.
[2022-06-21 12:28] LABS: MANUAL DIFF FLAG NO
[2022-06-21 14:17] LABS: Basophils Absolute Auto 0.1 X10*3/uL (0.0-0.2); Basophils Percent Auto 0.5 % (0-2); Eosinophils Absolute Auto 0.1 X10*3/uL (0.0-0.4); Eosinophils Percent Auto 0.9 % (0-4); Hematocrit 37.5 % (37.0-47.0); Hemoglobin 12.1 g/dl (12.0-16.0); Imm Gran Abs Auto 0.04 X10*3/uL (0.00-0.03); Imm Gran Pct Auto 0.4 % (0.0-0.4); Lymphocytes Absolute Auto 2.7 X10*3/uL (1.2-4.9); Lymphocytes Percent Auto 25.6 % (20-40); Mean Corpuscular HGB Conc 32.3 g/dl (31.0-35.0); Mean Corpuscular Volume 89.9 fL (80.0-98.0); Mean Platelet Volume 8.8 fL (9.4-12.3); Monocytes Absolute Auto 1.1 X10*3/uL (0.1-1.2); Monocytes Percent Auto 10.1 % (2-11); Neutrophils Absolute Auto 6.5 x10*3/uL (2.0-8.3); Neutrophils Percent Auto 62.5 % (45-73); Platelet Count 515 X10*3/uL (160-400); Red Blood Count 4.17 X10*6/uL (4.20-5.50); Red Cell Distribution Width 15.3 % (11.0-16.0); White Blood Count 10.4 X10*3/uL (4.8-10.8)
[2022-06-21 14:50] LABS: Alanine Aminotransferase 22 U/L (0-31); Albumin Level 4.3 g/dL (3.5-5.0); Alkaline Phosphatase 136 U/L (39-117); Anion Gap 15 (12-20); Aspartate Amino Transferase 39 U/L (5-31); Bilirubin Total 0.6 mg/dL (0.0-1.0); Blood Urea Nitrogen 7 mg/dL (9-16); Carbon Dioxide 33 mmol/L (22-29); Chloride 96 mmol/L (96-108); Estimated Glomerular Filt Rate > 60; Glucose Random 82 mg/dL (60-115); Sodium 141 mmol/L (135-145); Total Protein 7.2 g/dL (6.5-8.0)
[2022-06-21 14:53] LABS: Thyroid Stimulating Hormone 1.31 uIU/mL (0.32-4.0)
[2022-06-21 15:35] LABS: Vitamin D 25-OH Total 43.2 ng/mL (>30)
== END 2022-06-21 10:53 | disposition home or self-care (01) ==
LOC: HO.MAMMO 10:52
PROVIDERS: PCP Internal Medicine; Visit Provider Internal Medicine
DX: Z00.00 Encounter for general adult medical examination without abnormal findings (principal); Z12.31 Encounter for screening mammogram for malignant neoplasm of breast; Z13.820 Encounter for screening for osteoporosis; Z78.0 Asymptomatic menopausal state; F10.19 Alcohol abuse with unspecified alcohol-induced disorder; F31.9 Bipolar disorder, unspecified; F17.200 Nicotine dependence, unspecified, uncomplicated; M81.8 Other osteoporosis without current pathological fracture
CPT/HCPCS: 36415; 77063; 77067; 77080; 80053; 82306; 84443; 85025

== ENCOUNTER 2022-08-14 08:52 | Outpatient (REF) | payer MEDICARE, OTHER, SELFPAY ==
[2022-08-14 09:49] LABS: Potassium 4.5 mmol/L (3.3-5.1)
== END 2022-08-14 08:53 | disposition home or self-care (01) ==
LOC: HO.LAB 08:52
PROVIDERS: PCP Internal Medicine; Visit Provider Internal Medicine
DX: E87.6 Hypokalemia (principal); F10.19 Alcohol abuse with unspecified alcohol-induced disorder; R74.01 Elevation of levels of liver transaminase levels
CPT/HCPCS: 36415; 83735; 84132

== ENCOUNTER 2022-10-25 09:33 | Outpatient (REF) | payer MEDICARE, OTHER, SELFPAY ==
--- NOTE | ~2022-10-25 | US_ITS ---
EXAMINATION: US ABDOMEN COMPLETE CLINICAL INFORMATION: Alcoholic liver disease, unspecified. Elevated LFTs. COMPARISON: CT abdomen and pelvis 03/18/2021. X-ray abdomen KUB 02/09/2021. Ultrasound abdomen complete 10/12/2020 and 02/23/2011. TECHNIQUE: Real-time imaging of the abdominal viscera. FINDINGS: PANCREAS: Pancreatic duct is mildly prominent measuring 3 mm in diameter. The pancreas is otherwise grossly unremarkable. ABDOMINAL AORTA: The proximal, mid, and distal segments are normal in caliber. INFERIOR VENA CAVA: Visualized portions are normal. LIVER: The liver is normal in size. The liver contour is normal. There is overall increased echogenicity of the liver. Mildly dilated intrahepatic biliary ducts. No focal hepatic lesion. GALLBLADDER: Surgically absent. COMMON BILE DUCT: Normal in caliber measuring 0.8 cm in diameter. RIGHT KIDNEY: No hydronephrosis. No renal calculi or focal parenchymal lesions. The kidney measures 11.0 cm in maximum dimension. LEFT KIDNEY: Normal. No hydronephrosis. No renal calculi or focal parenchymal lesions. The kidney measures 9.8 cm in maximum dimension. SPLEEN: Normal. The spleen measures 8.9 cm in maximum dimension. FREE FLUID: None. US/US abdomen complete IMPRESSION: Dilated intra and extrahepatic biliary ducts are again noted and are chronic in nature. Pancreatic duct is also mildly prominent which is a chronic finding. Findings are likely related to the patient's cholecystectomy status.
== END 2022-10-25 09:34 | disposition home or self-care (01) ==
LOC: HO.US 09:33
PROVIDERS: PCP Internal Medicine; Visit Provider Internal Medicine
DX: K70.9 Alcoholic liver disease, unspecified (principal)
CPT/HCPCS: 76700

== ENCOUNTER 2022-11-14 10:07 | Outpatient (REF) | payer MEDICARE, OTHER, SELFPAY ==
--- NOTE | ~2022-11-14 | XR_ITS ---
EXAMINATION: XR CHEST CLINICAL INFORMATION: COPD COMPARISON: Previous chest x-ray most recent April [address] March 2021 TECHNIQUE: 2 views of the chest were obtained. FINDINGS: The cardiac and mediastinal contours are stable. The lungs are clear. No pleural effusion or pneumothorax. Degenerative changes of the lower thoracic spine to the right. Old trauma to the right distal clavicle. XR/XR chest 2V IMPRESSION: No evidence for acute disease in the chest.
[2022-11-14 11:23] LABS: MANUAL DIFF FLAG NO
[2022-11-14 11:56] LABS: Basophils Percent Auto 0.5 % (0-2); Eosinophils Percent Auto 0.5 % (0-4); Hematocrit 40.7 % (37.0-47.0); Hemoglobin 14.6 g/dl (12.0-16.0); Imm Gran Abs Auto 0.03 X10*3/uL (0.00-0.03); Imm Gran Pct Auto 0.3 % (0.0-0.4); Lymphocytes Percent Auto 34.6 % (20-40); Mean Corpuscular HGB Conc 35.9 g/dl (31.0-35.0); Mean Corpuscular Hemoglobin 31.5 pg (27.0-33.0); Mean Corpuscular Volume 87.9 fL (80.0-98.0); Mean Platelet Volume 9.3 fL (9.4-12.3); Monocytes Absolute Auto 0.8 X10*3/uL (0.1-1.2); Monocytes Percent Auto 9.8 % (2-11); Neutrophils Absolute Auto 4.7 x10*3/uL (2.0-8.3); Neutrophils Percent Auto 54.3 % (45-73); Platelet Count 413 X10*3/uL (160-400); Red Blood Count 4.63 X10*6/uL (4.20-5.50); Red Cell Distribution Width 13.8 % (11.0-16.0); White Blood Count 8.6 X10*3/uL (4.8-10.8)
[2022-11-14 14:17] LABS: Alanine Aminotransferase 29 U/L (0-31); Albumin Level 4.1 g/dL (3.5-5.0); Alkaline Phosphatase 140 U/L (39-117); Anion Gap 21 (12-20); Aspartate Amino Transferase 48 U/L (5-31); Bilirubin Total 0.8 mg/dL (0.0-1.0); Blood Urea Nitrogen 10 mg/dL (9-16); Calcium 8.7 mg/dL (8.4-10.2); Carbon Dioxide 21 mmol/L (22-29); Chloride 103 mmol/L (96-108); Cholesterol 475 mg/dL; Estimated Glomerular Filt Rate > 60; Glucose Random 104 mg/dL (60-115); HDL Cholesterol 26 mg/dL; Potassium 3.3 mmol/L (3.3-5.1); Sodium 142 mmol/L (135-145); Triglycerides 2721 mg/dL
== END 2022-11-14 10:08 | disposition home or self-care (01) ==
LOC: HO.XRAY 10:07
PROVIDERS: Absent Provider Internal Medicine; PCP Internal Medicine; Visit Provider Internal Medicine
DX: J44.9 Chronic obstructive pulmonary disease, unspecified (principal); F10.24 Alcohol dependence with alcohol-induced mood disorder; I10 Essential (primary) hypertension; K70.9 Alcoholic liver disease, unspecified; F17.210 Nicotine dependence, cigarettes, uncomplicated
CPT/HCPCS: 36415; 71046; 80053; 80061; 85025; 99202

== ENCOUNTER 2022-12-11 11:07 | Outpatient (REF) | payer MEDICARE, OTHER, SELFPAY ==
--- NOTE | 2022-12-11 11:13 | PFT_ITS ---
Forced vital capacity 66%, FEV1 42%, FEV1/FVC ratio is 50. FEF 25-75 is 18% and MVV 38%. Post bronchodilator therapy, there is significant improvement and partial reversibility in all the flow volumes. Total lung capacity 105%. Residual volume 150% indicating air trapping. Diffusion capacity 72%. CONCLUSION: Severe obstructive airway disorder. Partial reversibility after bronchodilator therapy is noted. These results are consistent with asthma/COPD overlap syndrome. Clinical correlation is recommended. Kimberly Piedra MD MSB/MODL / [phone]
== END 2022-12-11 11:08 | disposition home or self-care (01) ==
LOC: HO.RESP 11:07
PROVIDERS: PCP Internal Medicine; Visit Provider Internal Medicine
DX: J44.9 Chronic obstructive pulmonary disease, unspecified (principal); R06.02 Shortness of breath; F17.200 Nicotine dependence, unspecified, uncomplicated
CPT/HCPCS: 94010; 94727; 94729

== ENCOUNTER 2022-12-15 13:20 | Outpatient (REF) | payer MEDICARE, SELFPAY ==
--- NOTE | ~2022-12-15 | CT_ITS ---
EXAMINATION: CT CHEST SCREENING CLINICAL INFORMATION: Nicotine dependence. One pack per day for 52 pack years. COMPARISON: CT chest 03/18/2021 TECHNIQUE: Multidetector volumetric CT imaging of the chest is performed without contrast using low dose technique. Additional 2D coronal and sagittal reformatted images and axial 3D maximum intensity projection (MIP) images are generated on the CT workstation. This CT examination was performed using dose optimization techniques as appropriate, variously including the following: *Automated exposure control *Adjustment of mA and/or kV according to patient size (this includes techniques or standardized protocols for targeted exams where dose is matched to indication/reason for exam; i.e. extremities or head) *Use of iterative reconstruction technique DLP: 46 mGy-cm FINDINGS: LUNGS: The lungs are well-expanded and clear of acute pneumonic process there are no pulmonary nodules, mass or consolidation. No ground-glass density. MEDIASTINUM: The thyroid lobes are symmetric and normal. The central trachea and the bronchi are widely patent. Heart size and the great vessels are normal caliber. No abnormal size mediastinal or hilar lymph nodes seen. CORONARY ARTERY CALCIFICATION: Mild coronary artery calcifications are present. PLEURA: There is no pleural effusion. No pleural mass or thickening. AXILLA: No lymphadenopathy. UPPER ABDOMEN: Visualized liver, spleen, pancreas and bilateral adrenal glands are unremarkable. OSSEOUS STRUCTURES: No aggressive lytic or sclerotic process. CT/CT lung screening IMPRESSION: Unremarkable CT chest exam. ASSESSMENT: Lung-RADS category 1, benign. RECOMMENDATION: Low-dose annual CT chest.
== END 2022-12-15 13:21 | disposition home or self-care (01) ==
LOC: HO.CT 13:20
PROVIDERS: PCP Internal Medicine; Visit Provider Physician Assistant Medical
DX: F17.210 Nicotine dependence, cigarettes, uncomplicated (principal)
CPT/HCPCS: 71271; G0296

== ENCOUNTER → 2022-12-25 10:51 | Outpatient (BNVA) | payer MEDICARE, SELFPAY | PROVIDERS: PCP Internal Medicine; Visit Provider Internal Medicine | DX: J44.9 Chronic obstructive pulmonary disease, unspecified (principal); F41.1 Generalized anxiety disorder; F17.210 Nicotine dependence, cigarettes, uncomplicated | CPT/HCPCS: 99212 ==

== ENCOUNTER 2023-01-09 09:09 | Outpatient (REF) | payer MEDICARE, SELFPAY ==
[2023-01-09 10:31] LABS: Alanine Aminotransferase 21 U/L (0-31); Albumin Level 4.2 g/dL (3.5-5.0); Alkaline Phosphatase 57 U/L (39-117); Amylase 100 U/L (28-100); Anion Gap 12 (12-20); Aspartate Amino Transferase 23 U/L (5-31); Bilirubin Total 0.4 mg/dL (0.0-1.0); Blood Urea Nitrogen 12 mg/dL (9-16); Calcium 9.7 mg/dL (8.4-10.2); Carbon Dioxide 28 mmol/L (22-29); Chloride 103 mmol/L (96-108); Cholesterol 139 mg/dL; Estimated Glomerular Filt Rate > 60; Glucose Random 105 mg/dL (60-115); HDL Cholesterol 42 mg/dL; LDL Cholesterol Calculated 81 mg/dl; Lipase 49 U/L (8-78); Potassium 3.9 mmol/L (3.3-5.1); Sodium 139 mmol/L (135-145); Total Protein 7.2 g/dL (6.5-8.0); Triglycerides 83 mg/dL
[2023-01-09 10:47] LABS: Thyroid Stimulating Hormone 2.47 uIU/mL (0.32-4.0)
== END 2023-01-09 09:10 | disposition home or self-care (01) ==
LOC: HO.LAB 09:09
PROVIDERS: PCP Internal Medicine; Visit Provider Internal Medicine
DX: E78.1 Pure hyperglyceridemia (principal); E87.6 Hypokalemia; I10 Essential (primary) hypertension; K70.9 Alcoholic liver disease, unspecified; Z72.0 Tobacco use
CPT/HCPCS: 36415; 80053; 80061; 82150; 83690; 84443

== ENCOUNTER 2023-03-05 11:16 | Outpatient (AMB) | payer MEDICARE, SELFPAY ==
--- NOTE | 2023-03-05 11:20 | MHC.OFFVIS ---
Intake Vital Signs 03/05/23 11:24 Height 5 ft 4 in Weight 122 lb BMI 20.9 BP 122/68 Blood Pressure Location Lt brachial Position Standing Pulse 64 Pulse Source Pulse Oximeter Pulse Oximetry (%) 98 Oxygen Delivery Method Room Air Intake Visit Reasons: Shortness of breath Intake Note: pt is here for follow up and states she is very short of breath, still with any exertion, does not sleep well. Rug Scratcher Required: No Allergies levofloxacin [From LEVAQUIN] Allergy (Unknown, Verified 03/05/23 11:46) THROAT SWELLS mushroom Adverse Reaction (Mild, Verified 03/05/23 11:46) STOMACH UPSET Medication List - Last Reconciled 03/05/23 by Kimberly Piedra MD acetaminophen (Tylenol Extra Strength) 1,000 mg (2 x 500 mg) PO QID PRN albuterol sulfate 90 mcg/actuation 2 puffs inhalation Q6H PRN ascorbic acid (vitamin C) (Vitamin C) 500 mg PO DAILY back brace As directed buspirone 15 mg PO BID clonidine HCl 0.1 mg PO BID fenofibrate micronized 200 mg PO DAILY fluticasone propionate 50 mcg/actuation 1 spray intranasal BID fluticasone propionate 220 mcg/actuation (Flovent HFA) 2 puffs inhalation BID 30 days folic acid 1 mg PO DAILY gabapentin 600 mg PO TID hydroxyzine pamoate 50 mg PO TID PRN ibuprofen 800 mg PO Q8H PRN losartan 50 mg PO DAILY omeprazole 40 mg PO DAILY PRN thiamine HCl (vitamin B1) 100 mg PO DAILY trazodone 100 mg PO BEDTIME PRN vitamin B comp and C no.3 (B Complex Plus Vitamin C) 1 cap PO DAILY Do you need a note to return to daycare/school/sports/work: No HPI Shortness of breath HPI Details THIS 63 YEARS OLD FEMALE IS HERE FOR FOLLOW-UP AFTER 2 MONTHS. STILL GETS SHORT OF BREATH ON WALKING , MORE THAN A FEW BLOCKS. FEELS TIRED, AND ALSO FEELS ANXIOUS. SHE HAS BEEN USING NICOTINE PATCH, STILL CONTINUES TO SMOKE BUT HAS BEEN ABLE TO CUT DOWN THE CIGARETTES TO ABOUT 5 A DAY. APPETITE REMAINS POOR AND SHE KEEPS ON LOSING WEIGHT. LDCT SCAN OF THE LUNG WAS NEGATIVE, BENIGN. [facility] Medical History Anxiety Asthma-COPD overlap syndrome COPD (chronic obstructive pulmonary disease) Depression Nicotine dependence, cigarettes, uncomplicated Osteopenia Sacroiliac joint pain Seasonal allergies Surgical History History of cholecystectomy History of colonoscopy History of esophagogastroduodenoscopy (EGD) History of surgery on lower extremity History of surgery on right wrist Social History Alcohol intake: current Alcohol intake frequency: 3 or more drinks per day Alcohol type: hard liquor Patient Tobacco Use Status: Current everyday Tobacco user Tobacco use type: Cigarette Cigarette Packs Per Day: 0.5 Cigarettes Per Day: 7 Years Smoked: (current smoker, onset 12, 1/2-1ppd x 50yrs, now 1/2ppd - 35+PYH) Current occupational status: retired Current occupation: rt handed Review of Systems Const All systems reviewed & are unremarkable except as noted in HPI and below Eyes Reports no additional complaints ENT Reports no additional complaints Card Denies chest pain, Denies irregular heart rhythm and Denies leg edema Resp Reports as per HPI GI Reports no additional complaints Reports no additional complaints Musc Reports back pain and Reports arthralgias (Pain off and on in the right leg and the wrist) Skin/Breast Reports system reviewed and no additional complaints, except as documented Neuro Reports no additional complaints Psych Reports anxiety Endo Reports no additional complaints Alexander/Lymph Reports no additional complaints Aller/Immun Reports no additional complaints Physical Exam Vital Signs: Last Vital Signs Pulse 64 03/05/23 11:24 BP 122/68 03/05/23 11:24 Pulse Ox 98 03/05/23 11:24 Oxygen Delivery Method Room Air 03/05/23 11:24 BMI result Body Mass Index 20.9 Const General: comfortable, no acute distress, alert and awake Orientation/consciousness: patient oriented x3 HEENT Head: Yes normal to inspection General nose exam: No nasal polyps present and No nasal discharge present Face and sinus: Yes sinuses nontender Mouth: oropharynx normal Throat: Yes posterior oropharynx normal Eyes General: appearance normal, both eyes and all related structures Neck Neck: Yes normal visual inspection, Yes no lymphadenopathy, Yes trachea midline and Yes no JVD Thyroid: Thyroid normal Chest Chest palpation & inspection: normal inspection of the chest, normal palpation of entire chest wall and no tenderness Resp Other: Percussion note is resonant, breath sounds are slightly distant, A FEW FINE EXPIRATORY WHEEZES HEARD OVER THE LOWER LOBES. Cardio Palpation: normal PMI Rate: regular rate Rhythm: regular rhythm Heart sounds: no gallops and no murmurs GI Palpation (GI): Soft to palpation, nontender, No hepatosplenomegaly present and no masses Auscultation: normal bowel sounds Back/Spine/Pelvis Thoracic/Lumbar Spine: thoracic and lumbar spine normal to inspection and thoraco-lumbar ROM limited Skin General skin exam: no rashes or lesions noted Neuro General: patient oriented x3 and no focal motor deficits Cranial nerves: Yes CN's II-XII intact bilaterally Extrem General: Yes normal to inspection, Yes no clubbing, cyanosis or edema and Yes no calf tenderness Psych Appearance: grossly normal and well kempt Speech and movement: Normal speech and movement present Assessment & Plan Assessment & Plan (1) Asthma-COPD overlap syndrome: Comment: PULMONARY FUNCTION TEST IS CONSISTENT WITH MODERATELY SEVERE ASTHMA/COPD OVERLAP SYNDROME. SHE IS AFRAID TO USE ANY BRONCHODILATORS, SAYING THAT IT CAUSES HER HEART BEAT FAST. Tx; ADVISED TO CONTINUE USING FLOVENT-TO 22 PUFFS B.I.D.. ALSO ADVISED AFTER THAT SHE SHOULD TRY A LONG-ACTING BD . AND I WILL PRESCRIBE SEREVENT-50 1 INHALATION B.I.D. THIS SHOULD NOT CAUSE ANY SIGNIFICANT TACHYCARDIA . CONTINUE TO USE ALBUTEROL HFA ONLY P.R.N.. Code(s): J44.9 - Chronic obstructive pulmonary disease, unspecified (2) Nicotine dependence, cigarettes, uncomplicated: Comment: , SHE HAS BEEN SMOKING SINCE AGE 12 AT LEAST HALF PACK A DAY, I STRESS THAT IT IS IMPORTANT FOR HER TO QUIT SMOKING COMPLETELY. SHE SEEMS TO BE SERIOUS ABOUT THIS AND IS TRYING HER BEST. ADVISED TO CONTINUE NICOTINE PATCH 14 MG DAILY, KEEP ON CUTTING DOWN THE NUMBER OF CIGARETTES AND SHOULD BE ABLE TO QUIT IN THE NEXT FEW MONTHS. Code(s): F17.210 - Nicotine dependence, cigarettes, uncomplicated (3) Anxiety: Comment: SHE HAS GENERALIZED ANXIETY SYNDROME. DOES NOT WANT TO USE ANY ANXIOLYTIC AGENTS. I ADVISED HER TO DO BREATHING EXERCISES FOR RELAXING. 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 Code(s): F41.9 - Anxiety disorder, unspecified Coding Level of Care Code Est Pt Level 3 (68196) Diagnoses Asthma-COPD overlap syndrome J44.9 Nicotine dependence, cigarettes, uncomplicated F17.210 Anxiety F41.9
[2023-03-05 11:24] VITALS: BP 122/68; PULSE 64; O2SAT 98; BMI 20.9
== END 2023-03-05 11:46 | disposition home or self-care (01) ==
PROVIDERS: PCP Internal Medicine; Visit Provider Internal Medicine
DX: J44.9 Chronic obstructive pulmonary disease, unspecified (principal); F17.210 Nicotine dependence, cigarettes, uncomplicated; F41.9 Anxiety disorder, unspecified
CPT/HCPCS: 99213

== ENCOUNTER → 2023-03-05 11:16 | Outpatient (BNVA) | payer MEDICARE, SELFPAY | PROVIDERS: PCP Internal Medicine; Visit Provider Internal Medicine | DX: J44.9 Chronic obstructive pulmonary disease, unspecified (principal); F41.9 Anxiety disorder, unspecified; F17.210 Nicotine dependence, cigarettes, uncomplicated | CPT/HCPCS: 99212 ==

== ENCOUNTER 2023-04-24 11:00 | Outpatient (RCR) | payer MEDICARE, SELFPAY | END 2023-04-24 14:26 | disposition home or self-care (01) | LOC: HO.PT 11:00 | PROVIDERS: PCP Internal Medicine; Visit Provider Internal Medicine | DX: M75.41 Impingement syndrome of right shoulder (principal) | CPT/HCPCS: 97035; 97110; 97162; 97530 ==

== ENCOUNTER 2023-05-01 10:42 | Outpatient (AMB) | payer MEDICARE, SELFPAY ==
[2023-05-01 10:57] VITALS: BP 110/80; PULSE 85; O2SAT 98; BMI 20.9
--- NOTE | 2023-05-01 10:57 | MHC.OFFVIS ---
Intake Vital Signs 05/01/23 10:57 Height 5 ft 4 in Weight 122 lb BMI 20.9 BP 110/80 Blood Pressure Location Lt brachial Position Sitting Pulse 85 Pulse Source Pulse Oximeter Pulse Oximetry (%) 98 Oxygen Delivery Method Room Air Intake Visit Reasons: trouble breathing Intake Note: pt is here for a sick visit, and is coughing, wheezing and very bad short of breath. She feels like she won't be able to get her next breath, which is causing some panic. pt has been on mucinex, vicks, tylenol and inhalers. 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 Allergies levofloxacin [From LEVAQUIN] Allergy (Unknown, Verified 05/01/23 11:14) THROAT SWELLS mushroom Adverse Reaction (Mild, Verified 05/01/23 11:14) STOMACH UPSET Medication List - Last Reconciled 05/01/23 by Kimberly Piedra MD acetaminophen (Tylenol Extra Strength) 1,000 mg (2 x 500 mg) PO QID PRN albuterol sulfate 90 mcg/actuation 2 puffs inhalation Q6H PRN ascorbic acid (vitamin C) (Vitamin C) 500 mg PO DAILY back brace As directed buspirone 15 mg PO BID clonidine HCl 0.1 mg PO BID fenofibrate micronized 200 mg PO DAILY fluticasone propionate 50 mcg/actuation 1 spray intranasal BID fluticasone propionate 220 mcg/actuation (Flovent HFA) 2 puffs inhalation BID 30 days folic acid 1 mg PO DAILY gabapentin 600 mg PO TID hydroxyzine pamoate 50 mg PO TID PRN ibuprofen 800 mg PO Q8H PRN losartan 50 mg PO DAILY omeprazole 40 mg PO DAILY PRN thiamine HCl (vitamin B1) 100 mg PO DAILY trazodone 100 mg PO BEDTIME PRN vitamin B comp and C no.3 (B Complex Plus Vitamin C) 1 cap PO DAILY Do you need a note to return to daycare/school/sports/work: No HPI trouble breathing HPI Details As this 63 years old female, comes for an emergency visit because for the last 2-3 days she is having nasal congestion sore throat cough and some wheezing. . Denies fever or chills She contracted the symptoms from . Checked COVID test yesterday which was negative. Cough is very bothersome, and she is getting short of breath on minimal exertion. [facility] Medical History (Updated 05/01/23 @ 11:32 by Kimberly Piedra MD) COPD exacerbation Acute upper respiratory infection Asthma-COPD overlap syndrome Osteopenia Nicotine dependence, cigarettes, uncomplicated COPD (chronic obstructive pulmonary disease) Sacroiliac joint pain Anxiety Depression Seasonal allergies Surgical History History of esophagogastroduodenoscopy (EGD) History of colonoscopy History of cholecystectomy History of surgery on lower extremity History of surgery on right wrist Social History Alcohol intake: current Alcohol intake frequency: 3 or more drinks per day Alcohol type: hard liquor Patient Tobacco Use Status: Current everyday Tobacco user Tobacco use type: Cigarette Cigarette Packs Per Day: 0.5 Cigarettes Per Day: 7 Years Smoked: (current smoker, onset 12, 1/2-1ppd x 50yrs, now 1/2ppd - 35+PYH) Current occupational status: retired Current occupation: rt handed Review of Systems Const All systems reviewed & are unremarkable except as noted in HPI and below Eyes Reports no additional complaints ENT Reports no additional complaints Card Denies chest pain, Denies irregular heart rhythm and Denies leg edema Resp Reports as per HPI GI Reports no additional complaints Reports no additional complaints Musc Reports back pain and Reports arthralgias (Pain off and on in the right leg and the wrist) Skin/Breast Reports system reviewed and no additional complaints, except as documented Neuro Reports no additional complaints Psych Reports anxiety Endo Reports no additional complaints Alexander/Lymph Reports no additional complaints Aller/Immun Reports no additional complaints Physical Exam Vital Signs: Last Vital Signs Pulse 85 05/01/23 10:57 BP 110/80 05/01/23 10:57 Pulse Ox 98 05/01/23 10:57 Oxygen Delivery Method Room Air 05/01/23 10:57 BMI result Body Mass Index 20.9 Const Other: Acutely sick looking, and weak. General: comfortable, no acute distress, alert and awake Orientation/consciousness: patient oriented x3 HEENT Other: Has reddish streaks on both sides of the pharynx, Also has moderate nasal congestion. Head: Yes normal to inspection General nose exam: No nasal polyps present and No nasal discharge present Face and sinus: Yes sinuses nontender Mouth: oropharynx normal Throat: Yes posterior oropharynx normal Eyes General: appearance normal, both eyes and all related structures Neck Neck: Yes normal visual inspection, Yes no lymphadenopathy, Yes trachea midline and Yes no JVD Thyroid: Thyroid normal Chest Chest palpation & inspection: normal inspection of the chest, normal palpation of entire chest wall and no tenderness Resp Other: Percussion note is resonant, breath sounds are slightly distant, A FEW FINE EXPIRATORY WHEEZES HEARD OVER THE LOWER LOBES. Cardio Palpation: normal PMI Rate: regular rate Rhythm: regular rhythm Heart sounds: no gallops and no murmurs GI Palpation (GI): Soft to palpation, nontender, No hepatosplenomegaly present and no masses Auscultation: normal bowel sounds Back/Spine/Pelvis Thoracic/Lumbar Spine: thoracic and lumbar spine normal to inspection and thoraco-lumbar ROM limited Skin General skin exam: no rashes or lesions noted Neuro General: patient oriented x3 and no focal motor deficits Cranial nerves: Yes CN's II-XII intact bilaterally Extrem General: Yes normal to inspection, Yes no clubbing, cyanosis or edema and Yes no calf tenderness Psych Appearance: grossly normal and well kempt Speech and movement: Normal speech and movement present Assessment & Plan Assessment & Plan (1) Acute upper respiratory infection: Comment: Patient has acute viral upper respiratory infection. Prescribed course of Z-Farooq. Gargle with warm water and salt t.i.d.. Steam. inhalations 2 or 3 times a day Code(s): J06.9 - Acute upper respiratory infection, unspecified (2) COPD exacerbation: Comment: Prednisone 20 mg b.i.d. for. 5 days is prescribed Continue regular meds including Flovent-to 22 puffs b.i.d. and albuterol HFA 2 puffs Q 4-6 hours p.r.n. Code(s): J44.1 - Chronic obstructive pulmonary disease with (acute) exacerbation (3) Asthma-COPD overlap syndrome: Comment: PULMONARY FUNCTION TEST IS CONSISTENT WITH MODERATELY SEVERE ASTHMA/COPD OVERLAP SYNDROME. SHE IS AFRAID TO USE ANY BRONCHODILATORS, SAYING THAT IT CAUSES HER HEART BEAT FAST. Tx; ADVISED TO CONTINUE USING FLOVENT-TO 22 PUFFS B.I.D.. Albuterol HFA 2 puffs q 6 hrs PRN Code(s): J44.9 - Chronic obstructive pulmonary disease, unspecified (4) Nicotine dependence, cigarettes, uncomplicated: Comment: , SHE HAS BEEN SMOKING SINCE AGE 12 AT LEAST HALF PACK A DAY, I STRESS THAT IT IS IMPORTANT FOR HER TO QUIT SMOKING COMPLETELY. SHE SEEMS TO BE SERIOUS ABOUT THIS AND IS TRYING HER BEST. ADVISED TO CONTINUE NICOTINE PATCH 14 MG DAILY, KEEP ON CUTTING DOWN THE NUMBER OF CIGARETTES AND SHOULD BE ABLE TO QUIT IN THE NEXT FEW MONTHS. Code(s): F17.210 - Nicotine dependence, cigarettes, uncomplicated Medications: New azithromycin For 250 mg dose pack: take 500 mg today (day 1), then 250 mg for 4 days (days 2-5) PO 6 tabs 0RF prednisone 20 mg PO BID 10 tabs 0RF Upper Resp. infection 5 days Coding Level of Care Code Est Pt Level 3 (87656) Diagnoses Acute upper respiratory infection J06.9 COPD exacerbation J44.1 Asthma-COPD overlap syndrome J44.9 Nicotine dependence, cigarettes, uncomplicated F17.210
== END 2023-05-01 11:36 | disposition home or self-care (01) ==
PROVIDERS: PCP Internal Medicine; Visit Provider Internal Medicine
DX: J06.9 Acute upper respiratory infection, unspecified (principal); J44.1 Chronic obstructive pulmonary disease with (acute) exacerbation; J44.9 Chronic obstructive pulmonary disease, unspecified; F17.210 Nicotine dependence, cigarettes, uncomplicated
CPT/HCPCS: 99213

== ENCOUNTER → 2023-05-01 10:42 | Outpatient (BNVA) | payer MEDICARE, SELFPAY | PROVIDERS: PCP Internal Medicine; Visit Provider Internal Medicine | DX: J44.1 Chronic obstructive pulmonary disease with (acute) exacerbation (principal); J06.9 Acute upper respiratory infection, unspecified; F17.210 Nicotine dependence, cigarettes, uncomplicated | CPT/HCPCS: 99212 ==

== ENCOUNTER 2023-06-26 11:53 | Outpatient (REF) | payer MEDICARE, SELFPAY ==
--- NOTE | ~2023-06-26 | MM_ITS ---
EXAMINATION: MM SCREENING DIGITAL BREAST TOMOSYNTHESIS, BILATERAL CLINICAL INFORMATION: Screening. Asymptomatic. COMPARISON: Mammography: 06/21/2022, 05/16/2021, 02/23/2020, 10/03/2018, 03/28/2018, 07/19/2017 TECHNIQUE: Digital breast tomosynthesis is performed in both the craniocaudal and mediolateral oblique views along with computer-aided detection (CAD). Synthesized 2D images are generated from the tomosynthesis. A second right MLO nipple in profile was obtained. FINDINGS: The breasts are heterogeneously dense, which may obscure small masses (ACR BI-RADS breast composition Category c). There are no suspicious masses, suspicious grouped calcifications, or areas of architectural distortion in either breast. The parenchymal pattern is stable from prior exams. Small skin lesion 12:00 right breast, benign and stable. MM/MM tomosynthesis screening BI IMPRESSION: No mammographic evidence of malignancy. ASSESSMENT: BI-RADS BI-RADS 2 - Benign Findings RECOMMENDATION: Routine annual mammography screening. 1 year F/U This examination should not preclude the clinical evaluation of a suspicious palpable abnormality. This patient's information was entered into a reminder system with a target due date for their next mammogram.
== END 2023-06-26 11:54 | disposition home or self-care (01) ==
LOC: HO.MAMMO 11:53
PROVIDERS: PCP Internal Medicine; Visit Provider Internal Medicine
DX: Z12.31 Encounter for screening mammogram for malignant neoplasm of breast (principal)
CPT/HCPCS: 77063; 77067

== ENCOUNTER → 2023-06-26 12:15 | Outpatient (BNV) | payer MEDICARE, SELFPAY | PROVIDERS: PCP Internal Medicine; Visit Provider Radiology Diagnostic Radiology | DX: Z12.31 Encounter for screening mammogram for malignant neoplasm of breast (principal) | CPT/HCPCS: 77063; 77067 ==

== ENCOUNTER 2023-12-10 08:12 | Outpatient (REF) | payer MEDICARE, SELFPAY ==
[2023-12-10 08:25] LABS: MANUAL DIFF FLAG NO
[2023-12-10 09:05] LABS: Basophils Percent Auto 0.5 % (0-2); Eosinophils Absolute Auto 0.1 X10*3/uL (0.0-0.4); Eosinophils Percent Auto 1.2 % (0-4); Hematocrit 38.8 % (37.0-47.0); Hemoglobin 12.9 g/dl (12.0-16.0); Imm Gran Abs Auto 0.02 X10*3/uL (0.00-0.03); Imm Gran Pct Auto 0.3 % (0.0-0.4); Lymphocytes Absolute Auto 1.8 X10*3/uL (1.2-4.9); Lymphocytes Percent Auto 25.1 % (20-40); Mean Corpuscular HGB Conc 33.2 g/dl (31.0-35.0); Mean Corpuscular Hemoglobin 30.5 pg (27.0-33.0); Mean Corpuscular Volume 91.7 fL (80.0-98.0); Mean Platelet Volume 8.9 fL (9.4-12.3); Monocytes Absolute Auto 0.8 X10*3/uL (0.1-1.2); Monocytes Percent Auto 10.5 % (2-11); Neutrophils Absolute Auto 4.6 x10*3/uL (2.0-8.3); Neutrophils Percent Auto 62.4 % (45-73); Platelet Count 439 X10*3/uL (160-400); Red Blood Count 4.23 X10*6/uL (4.20-5.50); Red Cell Distribution Width 12.1 % (11.0-16.0); White Blood Count 7.3 X10*3/uL (4.8-10.8)
[2023-12-10 09:51] LABS: Alanine Aminotransferase 13 U/L (0-31); Albumin Level 4.8 g/dL (3.5-5.0); Alkaline Phosphatase 64 U/L (39-117); Anion Gap 16 (12-20); Aspartate Amino Transferase 24 U/L (5-31); Bilirubin Total 1.3 mg/dL (0.0-1.0); Blood Urea Nitrogen 10 mg/dL (9-16); Calcium 10.1 mg/dL (8.4-10.2); Carbon Dioxide 25 mmol/L (22-29); Chloride 99 mmol/L (96-108); Cholesterol 185 mg/dL (<200); Estimated Glomerular Filt Rate > 60; Glucose Random 110 mg/dL (60-115); HDL Cholesterol 81 mg/dL (>40); LDL Cholesterol Calculated 83 mg/dL (<100); Potassium 3.4 mmol/L (3.3-5.1); Sodium 137 mmol/L (135-145); Total Protein 7.7 g/dL (6.5-8.0); Triglycerides 106 mg/dL (<150)
== END 2023-12-10 08:13 | disposition home or self-care (01) ==
LOC: HO.LAB 08:12
PROVIDERS: PCP Internal Medicine; Visit Provider Internal Medicine
DX: E78.2 Mixed hyperlipidemia (principal); F17.211 Nicotine dependence, cigarettes, in remission; I10 Essential (primary) hypertension; J44.9 Chronic obstructive pulmonary disease, unspecified; Z68.21 Body mass index [BMI] 21.0-21.9, adult
CPT/HCPCS: 36415; 80053; 80061; 85025

== ENCOUNTER 2023-12-21 10:08 | Outpatient (REF) | payer MEDICARE, SELFPAY ==
[2023-12-21 10:43] VITALS: PULSE 70; RESP 16; O2SAT 97
--- NOTE | 2023-12-21 16:27 | PFT_ITS ---
Indication: COPD Spirometry [FEV1 to FVC 53%; FEV1 1.3 L; FVC 2.45 L. there was a significant response to bronchodilators noted. Maximum voluntary ventilation 29% predicted] Lung Volumes [Total lung capacity 122% predicted; residual volume 224% predicted] Diffusion Capacity [DLCO 61% predicted] Comparisons [None] Interpretation [There is an obstructive ventilatory defect consistent with moderate severe COPD. There has a significant response to bronchodilators noted. Severe decrease in maximum voluntary ventilation. The patient does have significant air trapping and a treadmill hyperinflation due to the COPD. There has also a mild diffusion impairment. Clinical correlation warranted.] MTDD
== END 2023-12-21 10:09 | disposition home or self-care (01) ==
LOC: HO.RESP 10:08
PROVIDERS: PCP Internal Medicine; Visit Provider Internal Medicine
DX: J44.9 Chronic obstructive pulmonary disease, unspecified (principal); F17.210 Nicotine dependence, cigarettes, uncomplicated
CPT/HCPCS: 94010; 94640; 94727; 94729

== ENCOUNTER → 2023-12-21 16:27 | Outpatient (BNV) | payer MEDICARE, SELFPAY | PROVIDERS: PCP Internal Medicine; Visit Provider Hospitalist | DX: J44.9 Chronic obstructive pulmonary disease, unspecified (principal) | CPT/HCPCS: 94060; 94727; 94729 ==

== ENCOUNTER 2023-12-25 11:09 | Outpatient (AMB) | payer MEDICARE, SELFPAY ==
[2023-12-25 11:15] VITALS: BP 112/62; PULSE 62; O2SAT 99; BMI 21.5
--- NOTE | 2023-12-25 11:15 | A.OFFVIS_ITS ---
Vital Signs 12/25/23 11:15 Height 5 ft 4 in Weight 125 lb BMI 21.5 BP 112/62 Blood Pressure Location Lt brachial Position Sitting Pulse 62 Pulse Source Pulse Oximeter Pulse Oximetry (%) 99 Oxygen Delivery Method Room Air Intake Visit Reasons: Shortness of breath Intake Note: pt is here for follow up and states she is here for pft follow up Allergy Specialist Required: No Allergies levofloxacin [From LEVAQUIN] Allergy (Unknown, Verified 12/25/23 11:42) THROAT SWELLS mushroom Adverse Reaction (Mild, Verified 12/25/23 11:42) STOMACH UPSET ALBUTEROL Adverse Reaction (Severe, Uncoded 12/25/23 11:42) Agitated Medication List - Last Reconciled 12/25/23 by Kimberly Piedra MD acetaminophen (Tylenol Extra Strength) 1,000 mg (2 x 500 mg) PO QID PRN ascorbic acid (vitamin C) (Vitamin C) 500 mg PO DAILY back brace As directed clonidine HCl 0.1 mg PO BID PRN fluticasone propionate 50 mcg/actuation 1 spray intranasal BID fluticasone propionate 220 mcg/actuation (Flovent HFA) 2 puffs inhalation BID 30 days folic acid 1 mg PO DAILY gabapentin 600 mg PO TID PRN hydroxyzine pamoate 50 mg PO TID PRN losartan 50 mg PO DAILY meloxicam 15 mg PO DAILY omeprazole 40 mg PO DAILY PRN thiamine HCl (vitamin B1) 100 mg PO DAILY trazodone 100 mg PO BEDTIME PRN vitamin B comp and C no.3 (B Complex Plus Vitamin C) 1 cap PO DAILY Do you need a note to return to daycare/school/sports/work: No HPI HPI Shortness of breath: Details: Sweta is 63 years old female, a lifelong smoker, currently smoking 8-10 cigarettes a day. She has ongoing intermittent cough, wheezing, and shortness of breath on exertion. She is being treated for asthma/COPD syndrome . She does use Flovent-220 puffs. B.i.d. without any side effects . However she does get some tachycardia and anxiety after using albuterol inhaler She feels better with this regimen but it is not fully controlling her respiratory symptoms. [facility] Medical History COPD exacerbation Acute upper respiratory infection Asthma-COPD overlap syndrome Osteopenia Nicotine dependence, cigarettes, uncomplicated COPD (chronic obstructive pulmonary disease) Sacroiliac joint pain Anxiety Depression Seasonal allergies Surgical History History of esophagogastroduodenoscopy (EGD) History of colonoscopy History of cholecystectomy History of surgery on lower extremity History of surgery on right wrist Social History Alcohol intake: current Alcohol intake frequency: 3 or more drinks per day Alcohol type: hard liquor Patient Tobacco Use Status: Current everyday Tobacco user Tobacco use type: Cigarette Cigarette Packs Per Day: 0.5 Cigarettes Per Day: 7 Years Smoked: (current smoker, onset 12, 1/2-1ppd x 50yrs, now 1/2ppd - 35+PYH) Current occupational status: retired Current occupation: rt handed Review of Systems Const All systems reviewed & are unremarkable except as noted in HPI and below Eyes Reports no additional complaints ENT Reports no additional complaints Card Denies chest pain, Denies irregular heart rhythm and Denies leg edema Resp Reports as per HPI GI Reports no additional complaints Reports no additional complaints Musc Reports back pain and Reports arthralgias (Pain off and on in the right leg and the wrist) Skin/Breast Reports system reviewed and no additional complaints, except as documented Neuro Reports no additional complaints Psych Reports anxiety Endo Reports no additional complaints Alexander/Lymph Reports no additional complaints Aller/Immun Reports no additional complaints Physical Exam Vital Signs: Last Vital Signs Pulse 62 12/25/23 11:15 BP 112/62 12/25/23 11:15 Pulse Ox 99 12/25/23 11:15 Oxygen Delivery Method Room Air 12/25/23 11:15 BMI result Body Mass Index 21.5 Const Other: Acutely sick looking, and weak. General: comfortable, no acute distress, alert and awake Orientation/consciousness: patient oriented x3 HEENT Other: Has reddish streaks on both sides of the pharynx, Also has moderate nasal congestion. Head: Yes normal to inspection General nose exam: No nasal polyps present and No nasal discharge present Face and sinus: Yes sinuses nontender Mouth: oropharynx normal Throat: Yes posterior oropharynx normal Eyes General: appearance normal, both eyes and all related structures Neck Neck: Yes normal visual inspection, Yes no lymphadenopathy, Yes trachea midline and Yes no JVD Thyroid: Thyroid normal Chest Chest palpation & inspection: normal inspection of the chest, normal palpation of entire chest wall and no tenderness Resp Other: Percussion note is resonant, breath sounds are slightly distant, A FEW FINE EXPIRATORY WHEEZES HEARD OVER THE LOWER LOBES. Cardio Palpation: normal PMI Rate: regular rate Rhythm: regular rhythm Heart sounds: no gallops and no murmurs GI Palpation (GI): Soft to palpation, nontender, No hepatosplenomegaly present and no masses Auscultation: normal bowel sounds Back/Spine/Pelvis Thoracic/Lumbar Spine: thoracic and lumbar spine normal to inspection and thoraco-lumbar ROM limited Skin General skin exam: no rashes or lesions noted Neuro General: patient oriented x3 and no focal motor deficits Cranial nerves: Yes CN's II-XII intact bilaterally Extrem General: Yes normal to inspection, Yes no clubbing, cyanosis or edema and Yes no calf tenderness Psych Appearance: grossly normal and well kempt Speech and movement: Normal speech and movement present Results Reviewed Results Reviewed: Pulmonary function test on 12/21/2023 c/w severe ASTHMA/COPD OVERLAP SYNDROME, SIMILAR TO WHAT WAS NOTED ON HER PFT IN 2022. HOWEVER HER TOTAL LUNG CAPACITY AND RESIDUAL VOLUME ARE WORSE AND DLCO IS DOWN TO 61, Assessment & Plan Assessment & Plan (1) Asthma-COPD overlap syndrome: Comment: PULMONARY FUNCTION TEST IS CONSISTENT WITH MODERATELY SEVERE ASTHMA/COPD OVERLAP SYNDROME. SHE IS FEELING SOMEWHAT BETTER WITH THE USE OF FLOVENT WHICH IS NOT CAUSING ANY SIDE EFFECTS, HOWEVER HER ASTHMA/COPD IS NOT FULLY CONTROLLED. Code(s): J44.9 - Chronic obstructive pulmonary disease, unspecified Category: Medical Plan: I THINK SHE WILL DO BETTER WITH A COMBINATION OF ICS/LABA SUCH ADVAIR HFA. AFTER DISCUSSING WITH THE ALIYAH I HAVE ORDERED ADVAIR HFA 230/21 2 PUFFS B.I.D. I WILL CHANGE HER ALBUTEROL HFA TO LEVALBUTEROL HFA 2 PUFFS Q 4-6 HOURS ONLY P.R.N.. (2) Anxiety: Comment: SHE HAS GENERALIZED ANXIETY SYNDROME. DOES NOT WANT TO USE ANY ANXIOLYTIC AGENTS. Code(s): F41.9 - Anxiety disorder, unspecified Category: Medical Plan: I ADVISED HER TO DO BREATHING EXERCISES FOR RELAXING. 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 (3) Nicotine dependence, cigarettes, uncomplicated: Comment: (current smoker, onset 12, 1/2-1ppd x 50yrs, now 1/2ppd - 35+PYH) Continues to smoke has cut down to 8 cigarettes a day. Code(s): F17.210 - Nicotine dependence, cigarettes, uncomplicated Category: Medical Plan: Discussed with her and advise that she should stop smoking completely. For additional help she should try nicotine patch 14 mg and apply 1 patch daily. I will recheck her in a month's time. Medications: New nicotine 1 patch transdermal DAILY 28 days 28 ea 3RF Nicotine craving fluticasone propion-salmeterol 230-21 mcg/actuation (Advair HFA) 2 puffs inhalation Q12H 30 days 12 grams 3RF asthma/copd levalbuterol tartrate 45 mcg/actuation 2 puffs inhalation Q4-6H 30 days PRN 15 grams 3RF shortness of breath Coding Level of Care Code Est Pt Level 4 (44740) Diagnoses Asthma-COPD overlap syndrome J44.9 Anxiety F41.9 Nicotine dependence, cigarettes, uncomplicated F17.210
== END 2023-12-25 11:43 | disposition home or self-care (01) ==
PROVIDERS: PCP Internal Medicine; Visit Provider Internal Medicine
DX: J44.9 Chronic obstructive pulmonary disease, unspecified (principal); F41.9 Anxiety disorder, unspecified; F17.210 Nicotine dependence, cigarettes, uncomplicated
CPT/HCPCS: 99214

== ENCOUNTER → 2023-12-25 11:09 | Outpatient (BNVA) | payer MEDICARE, SELFPAY | PROVIDERS: PCP Internal Medicine; Visit Provider Internal Medicine | DX: J44.9 Chronic obstructive pulmonary disease, unspecified (principal); F41.9 Anxiety disorder, unspecified; F17.210 Nicotine dependence, cigarettes, uncomplicated | CPT/HCPCS: 99212 ==

== ENCOUNTER 2024-03-03 15:03 | Outpatient (REF) | payer MEDICARE, SELFPAY ==
--- NOTE | ~2024-03-03 | CT_ITS ---
EXAMINATION: CT LOW-DOSE SCREENING CHEST WITHOUT CONTRAST CLINICAL INFORMATION: Nicotine dependence, cigarettes, uncomplicated. The patient is a current smoker with a 52 pack-year history of smoking. COMPARISON: CT chest 12/15/2022. X-ray chest 11/14/2022. TECHNIQUE: Multidetector volumetric CT imaging of the chest is performed on a Siemens SOMATOM Definition scanner without contrast using low dose technique. Additional 2D coronal and sagittal reformatted images and axial 3D maximum intensity projection (MIP) images are generated on the CT workstation. This CT examination was performed using dose optimization techniques as appropriate, variously including the following: *Automated exposure control *Adjustment of mA and/or kV according to patient size (this includes techniques or standardized protocols for targeted exams where dose is matched to indication/reason for exam; i.e. extremities or head) *Use of iterative reconstruction technique TOTAL EXAM DLP: 41 mGy-cm. CTDIvol: 1.21 mGy. FINDINGS: PULMONARY NODULES: No suspicious pulmonary nodules. A few tiny pulmonary nodules are present none larger than 2 mm (for example right middle lobe 5:310 and lingula 5:385). Avery images of all have been saved. LUNGS: Lungs bilaterally symmetrically expanded. Mild emphysematous changes are present throughout along with mild bronchial thickening without bronchiectasis. No effusion or pneumothorax. Central airways patent. MEDIASTINUM: No mediastinal, hilar or axillary adenopathy or free fluid collection. CORONARY ARTERY CALCIFICATION: Mild. THYROID GLAND: Unremarkable to the extent seen. CARDIOVASCULAR STRUCTURES: Aortic and heart size normal. No pericardial effusion. CHEST WALL/AXILLA: Unremarkable. UPPER ABDOMEN: Included portions of the solid organs in the upper abdomen unremarkable on noncontrast imaging. OSSEOUS STRUCTURES: No suspicious focal findings. CT/CT lung screening IMPRESSION: 1. No evidence of pulmonary malignancy. 2. Mild emphysema and bronchial thickening. 3. Incidental findings (s category): No incidental findings. ASSESSMENT: 1. Lung-RADS Category 2: Benign appearance or behavior of nodules. N/A RECOMMENDATION: Continued routine annual low-dose CT lung screening in 1 year is recommended. An order for CT CHEST LOW DOSE CANCER SCREENING ([id number]) can be placed.
== END 2024-03-03 15:04 | disposition home or self-care (01) ==
LOC: HO.CT 15:03
PROVIDERS: Visit Provider Physician Assistant Medical
DX: Z12.2 Encounter for screening for malignant neoplasm of respiratory organs (principal); F17.210 Nicotine dependence, cigarettes, uncomplicated
CPT/HCPCS: 71271

== ENCOUNTER → 2024-07-18 11:00 | Outpatient (BNV) | payer MEDICARE, SELFPAY | PROVIDERS: Visit Provider Internal Medicine | DX: Z12.31 Encounter for screening mammogram for malignant neoplasm of breast (principal) | CPT/HCPCS: 77063; 77067 ==

== ENCOUNTER 2024-07-18 11:08 | Outpatient (REF) | payer MEDICARE, SELFPAY ==
--- OUTSIDE RECORDS SUMMARY | 2024-07-18 11:10 | XMS_ITS | Patient Health Record ---
Author Organization [facility] [place] Address [address] [facility] [place] [address] Care Team Providers Care Produce Specialist Name Role Phone Jasminmushtaq Milagros Primary Care Provider Unavailab Lance Keith Unavailable [phone] Allergies Allergen (clinical drug ingredient) Drug/Non Drug Allergy documented on EMR Reaction Allergy Type Onset Date Status ibuprofen Advil Unknown Drug Allergy Active Adhesive Red rash Allergy Active aspirin Aspirin Hiatal hernia, stomach tear, Ramona-Caro Drug Allergy Active ciprofloxacin Ciprofloxacin Unknown Drug Allergy Active erythromycin Erythromycin Unknown Drug Allergy A ctive Reason For Referral No Information Medications Medication SIG (Take, Route, Fr equency, Duration) Notes Start Date End Date Status Gabapentin 300 MG 1 capsule Orally Onc e a day for 30 day(s) Active Social History Tobacco Use: Social History Observation Description Date Details (start date - stop date) Current Smoker 06/20/1972 - NA Tobacco Use/Smoking Question Answer Notes Are you a: current smoker When did you start smoking? 06/20/1972 How often do you smoke cigarettes? every day How many cigarettes a day do you smoke? 6-10 Alcohol Screen Question Answer Notes Did you have a drink contain ing alcohol in the past year? Yes How often did you have a dri nk containing alcohol in the past year? 2 to 4 times a month (2 points) Points 2 Interpretation Negative Tobacco use other than smoking: Question Answer Notes Are you an other tobacco user? No Plan Of Treatment No Information Insurance Providers Payer Name Payer Address Payer Phone Subscriber Number Group Number Insured Name Patient Relationship to Insured Coverage Start Date Coverage End Date [facility] [id number] [address] [address] [place] [phone] [id number] Avani Anderson Self - patient is the insured Medical (General) History Medical History History ICD Code Anxiety Arthritis asthma Back pain Broken bones CAD ( Coronary Artery Disease) Cataracts Gall bladder problems Chicken pox Hiatal hernia High blood pressure Joint implants/screws Numbness Scarlet fever Sciatica Transfusions Surgical History Surgery Date(Month/Year) gall bladder leg surgery, titanium rods foot surgery, titanium rods wrist surgery, titanium rods tonsillectomy, hemorrhage
--- OUTSIDE RECORDS SUMMARY | 2024-07-18 11:10 | XMS_ITS | Patient Health Record ---
Author Organization [facility] Address [address] [place] [address] Care Team Providers Care Office Technology Instructor Name Role Phone Milagros Gutierrez Primary Care Provider Unavailab Vidal Urias Unavailable [phone] DODIE LOTT Unavailable Unavailable ALLERGIES Allergen (clinical drug ingredient) Drug/Non Drug Allergy documented on EMR Reaction Allergy Type Onset Date Status Keflex Unknown Drug Allergy Active mushrooms (uncoded) Unknown Allergy Active REASON FOR REFERRAL No Information MEDICATIONS Medication SIG (Take, Route, Frequency, Duration) Notes Start Date End Date Status Simethicone Active Dicyclomine HCl 10 MG TAKE 1-2 CAPSUILES BY MOUTH EVERY 6 HOURS NEEDED FOR ABDOMINAL CRAMPS/DISCOMFORT for 30 Active Tylenol 800 mg as needed for pain Active Diphenhydramine Acti ve Albuterol Sulfate HFA 108 (9 0 Base) MCG/ACT 2 puffs as needed Inhalation every 4 hrs Active Prazosin HCl 2 MG TAKE 1-2 CAPSULES BY MOUTH AT BEDTIME Oral for 30 Active Gabapentin 300 MG TAKE ONE CAPSULE BY MOUTH THREE TIMES A DAY Oral for 30 Active Ondansetron HCl 4 MG TAKE ONE TABLET BY MOUTH EVERY 6 HOURS NEEDED FOR NAUSEA for 5 Active Omeprazole 40 MG TAKE ONE CAPSULE BY MOUTH EVERY DAY for 30 Active Mirtazapine 30 MG TAKE 1&1/2 TABLETS B Y MOUTH AT BEDTIME Oral for 30 Active Centrum Silver Activ e Omeprazole 20 MG 1 Orally BID for 30 day(s) 04/19/2020 Active Vitamin B 12 Active Vitamin C Active KlonoPIN 1 MG 1 tablet Orally Twic e a day Active Vitamin D3 Active IMMUNIZATIONS Vaccine Route Administration Date Status Comme nts Influenza Unknown 04/06/2020 Administered SOCIAL HISTORY Tobacco Use: Social History Observation Description Date Details (start date - stop date) Current Smoker NA - NA Sex Assigned At : Social History Observation Description Sex Assigned At Unknown Tobacco Use/Smoking Question Answer Notes Patient is a current smoker How often do you smoke cigarettes? every day How many cigarettes a day do you smoke? 6-10 How soon after you wake up do you smoke your fir st cigarette? 6-30 minutes Are you interested in quitting? Ready to quit Alcohol Screen Question Answer Notes Did you have a drink contain ing alcohol in the past year? Yes How often did you have a dri nk containing alcohol in the past year? 4 or more times a week (4 points) How many drinks did you have on a typical day when you were drinking in the past year? 10 or more drinks (4 points) Points 8 Interpretation Positive PROBLEMS Problem Type ICD Code Onset Dates Problem Status W/U Status Risk SNOMED Code Notes Problem Gastro-esophageal reflux disease without esophagitis (K21.9) Active confirmed 577184625 Problem Diarrhea (R19.7) Active confirmed 01474 008 Problem Irritable bowel syndrome with diarrhea (K58.0) Active confirmed 525154629 Problem Generalized abdominal pain (R10.84) Active confirmed 250589678 Problem Gastroesophageal reflux disease, esophagitis presence not specified (K21.9) Active confirmed 302591420 Problem Alcoholic liver disease (K70.9) Active confirmed 71334851 Problem Alcohol abuse (F10.10) Active confirmed Alcohol abuse (12301306) Problem Diarrhea, unspecified type (R19.7) Active confirmed 18836323 Problem Abdominal pain, periumbilic (R10.33) Active confirmed 522563087 Problem Abdominal pain, diffuse (R10.84) Active confirmed 934252646 PLAN OF TREATMENT Pending Test Test Name Order Date CHEM 7 PROFILE 03/20/2018 LIVER PROFILE 08/08/2017 LIVER PROFILE 03/20/2018 AMYLASE 03/20/2018 AMYLASE 08/08/2017 LIPASE 03/20/2018 LIPASE 08/08/2017 CBC w DIFF 08/08/2017 CBC w DIFF 03/20/2018 PROTHROMBIN TIME (PT, INR) 08/08/2017 CLOSTRIDIUM DIFF TOXIN A&B (C DIFF) 05/06 CLOSTRIDIUM DIFF TOXIN A&B (C DIFF) 03/06 STOOL WBC 03/20/2018 ALPHA-FETOPROTEIN,TUMOR MARKER 8 GIARDIA AG, STOOL EIA 03/20/2018 OVA & PARASITES (O&P) 03/20/2018 CULTURE, STOOL 03/20/2018 US ABD 08/08/2017 Insurance Providers Payer Name Payer Address Payer Phone Subscriber Number Group Number Insured Name Patient Relationship to Insured Coverage Start Date Coverage End Date [employer] MEDI COMPLETE (REFERRAL REQUIRED) [address] [address] [place] [address] [phone] [id number] ALIYAH NEWSOME Self - patient is the insured MEDICARE [facility] [address] [place] [address] [id number] ALIYAH NEWSOME Self - patient is the insured MEDICAL (GENERAL) HISTORY Medical History History ICD Code EGD 03-20-2011 and in 2003--n eg except a small HH, minute area of Ching's-no dysplasia-- and mild esophagitis--had her CCY right after that in 03/2011 Negative colonoscopy [place] [address] Usman frankel PTSD Alcohol abuse--she reports t hat she has stopped in the past---however, she had an alcohol level of 247 in July of 2013 in the ER and continues to drink as of the 07/09/2020 OV Depression Denies LA,DM,CVA,renal disease Ramona-Caro tear in 2006--UGI bleed-tr eated endoscopically asthma irritable bowel syndrome Colonoscopy 2017 with a hyperplastic chiara yp removed UGI bleed 03/2020-EGD with a Ramona-Keon s tear, gastric bx neg for Hpylori Surgical History Surgery Date(Month/Year) Cholecystectomy in 03/2011 Broken leg and wrist on the right in 201 2 Tonsillectomy Fractured heel 03/2015
== END 2024-07-18 11:09 | disposition home or self-care (01) ==
LOC: HO.MAMMO 11:08
PROVIDERS: Visit Provider Internal Medicine
DX: Z12.31 Encounter for screening mammogram for malignant neoplasm of breast (principal)
CPT/HCPCS: 77063; 77067

== ENCOUNTER 2024-11-22 10:43 | Outpatient (REF) | payer MEDICARE, SELFPAY ==
[2024-11-22 10:58] LABS: MANUAL DIFF FLAG NO
[2024-11-22 11:05] LABS: Basophils Percent Auto 0.6 % (0-2); Eosinophils Absolute Auto 0.1 X10*3/uL (0.0-0.4); Eosinophils Percent Auto 1.9 % (0-4); Hematocrit 40.1 % (37.0-47.0); Hemoglobin 13.1 g/dl (12.0-16.0); Imm Gran Abs Auto 0.01 X10*3/uL (0.00-0.03); Imm Gran Pct Auto 0.2 % (0.0-0.4); Lymphocytes Percent Auto 38.1 % (20-40); Mean Corpuscular HGB Conc 32.7 g/dl (31.0-35.0); Mean Corpuscular Hemoglobin 28.7 pg (27.0-33.0); Mean Corpuscular Volume 87.9 fL (80.0-98.0); Mean Platelet Volume 8.3 fL (9.4-12.3); Monocytes Absolute Auto 0.9 X10*3/uL (0.1-1.2); Monocytes Percent Auto 16.7 % (2-11); Neutrophils Absolute Auto 2.3 x10*3/uL (2.0-8.3); Neutrophils Percent Auto 42.5 % (45-73); Platelet Count 303 X10*3/uL (160-400); Red Blood Count 4.56 X10*6/uL (4.20-5.50); Red Cell Distribution Width 11.8 % (11.0-16.0); White Blood Count 5.3 X10*3/uL (4.8-10.8)
[2024-11-22 11:25] LABS: Amphetamine Screen Urine Not Detected (Not Detect); Barbiturates, Urine Not Detected (Not Detect); Benzodiazepines Screen Urine POSITIVE (Not Detect); Buprenorphine Scr Not Detected (Not Detect); Cannabinoid Screen Urine POSITIVE (Not Detect); Cocaine Screen Urine Not Detected (Not Detect); Fentanyl, urine Not Detected (Not Detect); Methadone Screen, Urine Not Detected (Not Detect); Opiate Screen Urine Not Detected (Not Detect); Oxycodone Screen Urine Not Detected (Not Detect); Phencyclidine Screen Urine Not Detected (Not Detect)
[2024-11-22 11:28] LABS: Anion Gap 11 (12-20)
[2024-11-22 11:39] LABS: Alanine Aminotransferase 73 U/L (0-31); Albumin Level 4.6 g/dL (3.5-5.0); Aspartate Amino Transferase 97 U/L (5-31); Bilirubin Direct 0.1 mg/dL (0.0-0.5); Bilirubin Total 0.3 mg/dL (0.0-1.0); Blood Urea Nitrogen 10 mg/dL (9-16); Calcium 9.4 mg/dL (8.4-10.2); Carbon Dioxide 29 mmol/L (22-29); Chloride 100 mmol/L (96-108); Estimated Glomerular Filt Rate > 60; Glucose Fasting 106 mg/dL (60-99); Potassium 4.2 mmol/L (3.3-5.1); Sodium 136 mmol/L (135-145); Total Protein 7.3 g/dL (6.5-8.0)
[2024-11-22 11:53] LABS: Thyroid Stimulating Hormone 2.21 uIU/mL (0.32-4.0)
[2024-11-22 12:58] LABS: Alkaline Phosphatase 73 U/L (39-117)
== END 2024-11-22 10:44 | disposition home or self-care (01) ==
LOC: HO.LAB 10:43
PROVIDERS: PCP Internal Medicine; Visit Provider Psychiatry & Neurology Psychiatry
DX: Z79.899 Other long term (current) drug therapy (principal)
CPT/HCPCS: 80053; 80076; 80307; 82248; 84443; 85025

== ENCOUNTER 2024-12-30 10:27 | Outpatient (REF) | payer MEDICARE, SELFPAY ==
--- OUTSIDE RECORDS SUMMARY | 2024-12-30 11:15 | XMS_ITS | Patient Health Record ---
Author Organization [facility] Address [address] [place] [address] Care Team Providers Care Inside Sales Trainer Name Role Phone Milagros Gutierrez Primary Care Provider Unavailab Vidal Urias Unavailable [phone] DODIE LOTT Unavailable Unavailable Allergies Allergen (clinical drug ingredient) Drug/Non Drug Allergy documented on EMR Reaction Allergy Type Onset Date Status Keflex Unknown Drug Allergy Active mushrooms (uncoded) Unknown Allergy Active Reason For Referral No Information Medications Medication SIG (Take, Route, Frequency, Duration) Notes [...] e a day Active Vitamin D3 Active Immunizations Vaccine Route Administration Date Status Comme nts Influenza Unknown 04/06/2020 Administered Social History Tobacco Use: Social History Observation Description Date Details (start date - stop date) Current Smoker NA - NA Tobacco Use/Smoking Question Answer Notes Patient is [...] drinks (4 points) Points 8 Interpretation Positive Section Notes: Smoker 1 ppd; alcohol as per PMH Smoker 1 ppd; alcohol as per PMH Smoker 1 ppd; alcohol as per PMH Smoker 1 ppd; alcohol as per PMH/10 nips of vodka per day Problems Problem Type SNOMED Code ICD Code Onset Dates Problem Status W/U Status Risk Notes Problem 443007618 Gastro-esophagea l reflux disease without esophagitis (K21.9) Active confirmed Problem 55313116 Diarrhea (R19.7) Active confirmed Problem 248377470 Irritable bowel syndrome with diarrhea (K58.0) Active confirmed Problem 623890185 Generalized abdominal pain (R10.84) Active confirmed Problem 073339799 Gastroesophageal reflux disease, esophagitis presence not specified (K21.9) Active confirmed Problem 84599505 Alcoholic liver disease (K70.9) Active confirmed Problem Alcohol abuse (25356263) Alcohol abuse (F10.10) Active confirmed Problem 11064106 Diarrhea, unspecified type (R19.7) Active confirmed Problem 162901467 Abdominal pain, periumbilic (R10.33) Active confirmed Problem 765236944 Abdominal pain, diffuse (R10.84) Active confirmed Plan Of Treatment Pending Test Test Name Order Date CHEM 7 PROFILE 03/20/2018 LIVER PROFILE 03/20/2018 LIVER PROFILE 08/08/2017 AMYLASE 03/20/2018 AMYLASE 08/08/2017 LIPASE 03/20/2018 LIPASE 08/08/2017 CBC w DIFF 03/20/2018 CBC w DIFF 08/08/2017 PROTHROMBIN TIME (PT, INR) 08/08/2017 CLOSTRIDIUM DIFF TOXIN A&B (C DIFF) 03/06 CLOSTRIDIUM DIFF TOXIN A&B (C DIFF) 05/06 STOOL WBC 03/20/2018 ALPHA-FETOPROTEIN,TUMOR MARKER 8 GIARDIA AG, STOOL EIA 03/20/2018 OVA & PARASITES (O&P) 03/20/2018 CULTURE, STOOL 03/20/2018 US ABD 08/08/2017 Insurance Providers Payer Name Payer Address Payer Phone Subscriber Number Group Number Insured Name Patient Relationship to Insured Coverage Start Date Coverage End Date AARP MEDI COMPLETE (REFERRAL REQUIRED) [address] [address] [place] [address] [id number] ALIYAH NEWSOME Self - patient is the insured MEDICARE [facility] [address] [facility] [place] [id number] [phone] [id number] ALIYAH NEWSOME Self - patient is the insured Medical (General) History Medical History History ICD Code EGD 03-20-2011 [...] as of the 07/09/2020 OV Depression Denies ND,DM,CVA,renal disease Ramona-Caro tear in 2006--UGI bleed-tr eated endoscopically asthma irritable bowel syndrome Colonoscopy 2017 with a hyperplastic chiara yp removed UGI bleed 03/2020-EGD with a Ramona-Keon s tear, gastric bx neg for Hpylori Surgical History Surgery Date(Month/Year) Cholecystectomy in 03/2011 Broken leg and wrist on the right in 2 Tonsillectomy Fractured heel 03/2015
[2024-12-30 11:55] LABS: Alanine Aminotransferase 43 U/L (0-31); Albumin Level 4.9 g/dL (3.5-5.0); Anion Gap 12 (12-20); Aspartate Amino Transferase 42 U/L (5-31); Bilirubin Total 0.6 mg/dL (0.0-1.0); Blood Urea Nitrogen 13 mg/dL (9-16); Calcium 9.5 mg/dL (8.4-10.2); Carbon Dioxide 28 mmol/L (22-29); Chloride 99 mmol/L (96-108); Estimated Glomerular Filt Rate > 60; Gamma Glutamyl Transpeptidase 84 U/L (7-33); Glucose Random 96 mg/dL (60-115); Potassium 4.2 mmol/L (3.3-5.1); Sodium 135 mmol/L (135-145); Total Protein 7.2 g/dL (6.5-8.0)
[2024-12-30 12:09] LABS: Alkaline Phosphatase 67 U/L (39-117)
[2024-12-30 13:56] LABS: Amphetamine Screen Urine Not Detected (Not Detect); Barbiturates, Urine Not Detected (Not Detect); Benzodiazepines Screen Urine POSITIVE (Not Detect); Buprenorphine Scr Not Detected (Not Detect); Cannabinoid Screen Urine POSITIVE (Not Detect); Cocaine Screen Urine Not Detected (Not Detect); Fentanyl, urine Not Detected (Not Detect); Methadone Screen, Urine Not Detected (Not Detect); Opiate Screen Urine Not Detected (Not Detect); Oxycodone Screen Urine Not Detected (Not Detect); Phencyclidine Screen Urine Not Detected (Not Detect)
== END 2024-12-30 10:28 | disposition home or self-care (01) ==
LOC: HO.LAB 10:27
PROVIDERS: PCP Internal Medicine; Visit Provider Psychiatry & Neurology Psychiatry
DX: Z79.899 Other long term (current) drug therapy (principal)
CPT/HCPCS: 80053; 80307; 82977

== ENCOUNTER 2025-02-25 11:14 | Outpatient (AMB) | payer MEDICARE, SELFPAY ==
[2025-02-25 11:19] VITALS: BP 153/79; PULSE 88; O2SAT 100; BMI 22.1
--- NOTE | 2025-02-25 11:19 | A.OFFVIS_ITS ---
Vital Signs 02/25/25 11:19 Height 5 ft 4 in Weight 128 lb 15.527 oz BMI 22.1 BP 153/79 H Blood Pressure Location Lt brachial Position Sitting Pulse 88 Pulse Source Pulse Oximeter Pulse Oximetry (%) 100 Oxygen Delivery Method Room Air Intake Visit Reasons: Shortness of breath Intake Note: pt is here and states she feels like she is not getting enough air, smoking is down, but the weather is not good with her breathing. Ignition Mechanic Required: No Allergies levofloxacin (From [employer]) Allergy (Unknown, Verified 02/25/25 11:25) THROAT SWELLS mushroom Adverse Reaction (Mild, Verified 02/25/25 11:25) STOMACH UPSET ALBUTEROL Adverse Reaction (Severe, Uncoded 02/25/25 11:25) Agitated Medication List - Last Reconciled 02/25/25 by Kimberly Piedra MD acetaminophen (Tylenol Extra Strength) 1,000 mg (2 x 500 mg) PO QID PRN ascorbic acid (vitamin C) (Vitamin C) 500 mg PO DAILY back brace As directed clonidine HCl 0.1 mg PO BID PRN fluticasone propion-salmeterol 230-21 mcg/actuation (Advair HFA) 2 puffs inhalation Q12H 30 days fluticasone propionate 50 mcg/actuation 1 spray intranasal BID folic acid 1 mg PO DAILY gabapentin 600 mg PO TID PRN hydroxyzine pamoate 50 mg PO TID PRN levalbuterol tartrate 45 mcg/actuation 2 puffs inhalation Q4-6H PRN 30 days losartan 50 mg PO DAILY meloxicam 15 mg PO DAILY nicotine 1 patch transdermal DAILY 28 days omeprazole 40 mg PO DAILY PRN thiamine HCl (vitamin B1) 100 mg PO DAILY trazodone 100 mg PO BEDTIME PRN vitamin B comp and C no.3 (B Complex Plus Vitamin C) 1 cap PO DAILY HPI HPI Shortness of breath: Details: This 65 years old female is coming for follow-up after 1 year. She is complaining that her breathing is getting worse, she gets short of breath when she walks a short distance or climbs stairs Also has frequent bouts of cough. However she has had no acute infection during the past year. She is somewhat confused about her inhalers. We called the pharmacy and confirm that she has Advair HFA 230-21 , and has not had refills the rescue inhaler ,Levalbuterol. She say is that she is stressed out and does not know about the inhalers. And when I asked about what is the reason for being stressed out she say is it is her breathing problem. She still smokes 4-5 cigarettes a day. [facility] Medical History COPD exacerbation Acute upper respiratory infection Asthma-COPD overlap syndrome Osteopenia Nicotine dependence, cigarettes, uncomplicated COPD (chronic obstructive pulmonary disease) Sacroiliac joint pain Anxiety Depression Seasonal allergies Surgical History History of esophagogastroduodenoscopy (EGD) History of colonoscopy History of cholecystectomy History of surgery on lower extremity History of surgery on right wrist Social History Alcohol intake: current Alcohol intake frequency: 3 or more drinks per day Alcohol type: hard liquor Patient Tobacco Use Status: Current everyday Tobacco user Tobacco use type: Cigarette Cigarette Packs Per Day: 0.5 Cigarettes Per Day: 5 Years Smoked: (current smoker, onset 12, 1/2-1ppd x 50yrs, now 1/2ppd - 35+PYH) Current occupational status: retired Current occupation: rt handed Review of Systems Const All systems reviewed & are unremarkable except as noted in HPI and below Eyes Reports no additional complaints ENT Reports no additional complaints Card Denies chest pain, Denies irregular heart rhythm and Denies leg edema Resp Reports as per HPI GI Reports no additional complaints Reports no additional complaints Musc Reports back pain and Reports arthralgias (Pain off and on in the right leg and the wrist) Skin/Breast Reports system reviewed and no additional complaints, except as documented Neuro Reports no additional complaints Psych Reports anxiety Endo Reports no additional complaints Alexander/Lymph Reports no additional complaints Aller/Immun Reports no additional complaints Physical Exam Vital Signs: Last Vital Signs Pulse 88 02/25/25 11:19 BP 153/79 H 02/25/25 11:19 Pulse Ox 100 02/25/25 11:19 Oxygen Delivery Method Room Air 02/25/25 11:19 BMI result Body Mass Index 22.1 Const Other: Acutely sick looking, and weak. General: comfortable, no acute distress, alert and awake Orientation/consciousness: patient oriented x3 HEENT Other: Has reddish streaks on both sides of the pharynx, Also has moderate nasal congestion. Head: Yes normal to inspection General nose exam: No nasal polyps present and No nasal discharge present Face and sinus: Yes sinuses nontender Mouth: oropharynx normal Throat: Yes posterior oropharynx normal Eyes General: appearance normal, both eyes and all related structures Neck Neck: Yes normal visual inspection, Yes no lymphadenopathy, Yes trachea midline and Yes no JVD Thyroid: Thyroid normal Chest Chest palpation & inspection: normal inspection of the chest, normal palpation of entire chest wall and no tenderness Resp Other: Percussion note is resonant, breath sounds are moderately distant, Does not have any wheezes or crepitations. Cardio Palpation: normal PMI Rate: regular rate Rhythm: regular rhythm Heart sounds: no gallops and no murmurs GI Palpation (GI): Soft to palpation, nontender, No hepatosplenomegaly present and no masses Auscultation: normal bowel sounds Back/Spine/Pelvis Thoracic/Lumbar Spine: thoracic and lumbar spine normal to inspection and thoraco-lumbar ROM limited Skin General skin exam: no rashes or lesions noted Neuro General: patient oriented x3 and no focal motor deficits Cranial nerves: Yes CN's II-XII intact bilaterally Extrem General: Yes normal to inspection, Yes no clubbing, cyanosis or edema and Yes no calf tenderness Psych Appearance: grossly normal and well kempt Speech and movement: Normal speech and movement present Office Procedures Spirometry Testing Spirometry Comments: In office spirometry completed with results to Dr Piedra. 27754- Spirometry Results Reviewed Results Reviewed: SPIROMETRY 12/21/23 TODAY FVC= 67 % 75 % FEV1 44 % 50 % FEV1/FVC 49 51 FEF 25-75 18 % 25% Assessment & Plan Assessment & Plan (1) Asthma-COPD overlap syndrome: Comment: PER PULMONARY FUNCTION TEST LAST YEAR SHE DOES HAVE SEVERE OBSTRUCTIVE AIRWAY DISORDER WITH SOME RESPONSE TO BRONCHODILATOR THERAPY(ACOS SHE STILL SMOKES THOUGH SHE HAS CUT DOWN THE CIGARETTES TO 4-5 PER DAY, SHE REMAINS SYMPTOMATIC, SHE IS SLIGHTLY CONFUSED ABOUT THE INHALERS. CURRENTLY USING ADVAIR HFA BUT ONLY ONCE A DAY IN THE MORNING Code(s): J44.9 - Chronic obstructive pulmonary disease, unspecified Category: Medical Plan: HAD A LENGTHY TALK AND I TRY TO EDUCATE HER ABOUT USING THE INHALERS. 1- USE ADVAIR HFA 230-21 2 PUFFS TWICE A DAY REGULARLY 2- I HAVE ADDED ATROVENT HFA TO USE 2 PUFFS B.I.D. REGULARLY AND Q 6 HOURS P.R.N. FOR ACUTE SYMPTOMS ADVISED THAT SHE NEEDS TO BE SEEN MORE FREQUENTLY . SO THIS TIME I WILL SEE HER AFTER 4 MONTHS (2) Nicotine dependence, cigarettes, uncomplicated: Comment: (current smoker, onset 12, 1/2-1ppd x 50yrs, now 1/2ppd - 35+PYH) Continues to smoke has cut down to 4-5 cigarettes a day. Code(s): F17.210 - Nicotine dependence, cigarettes, uncomplicated Category: Medical Plan: I EDUCATED HER WELL AND STRESS THAT SHE SHOULD QUIT COMPLETELY, TO AVOID ANY FURTHER DETERIORATION IN THE LUNG FUNCTION SHE SHOULD CONTINUE TO HAVE ANNUAL LDCT FOR SCREENING (3) Anxiety: Comment: SHE HAS GENERALIZED ANXIETY SYNDROME, IT SEEMS TO BE CONTROLLED BETTER THAN BEFORE. DOES NOT WANT TO USE ANY ANXIOLYTIC AGENTS. Code(s): F41.9 - Anxiety disorder, unspecified Category: Medical Plan: I HAD A GOOD DISCUSSION WITH HER AND REASSURED HER. Orders: Orders AMB Spirometry Testing Today J44.9 - Chronic obstructive pulmonary disease, unspecified Medications: New ipratropium bromide 17 mcg/actuation (Atrovent HFA) 2 puffs inhalation TID 12.9 grams 3RF 30 days Coding Level of Care Code Est Pt Level 3 (16112) Diagnoses Asthma-COPD overlap syndrome J44.9 Nicotine dependence, cigarettes, uncomplicated F17.210 Anxiety F41.9 CPT Codes Spirometry - CPT: 36002- Spirometry ([id number])
--- OUTSIDE RECORDS SUMMARY | 2025-02-25 12:17 | XMS_ITS | Encounter Summary ---
Author Organization [facility] Address [address] [place] [address] Phone Care Team Providers Care Civil Draftsman Name Role Phone Milagros Gutierrez MD Primary Care Provider Encounter Details Date Type Department Care Team (Late st Contact Info) Description 01/08/2020 Procedure Pass [facility], [address] [address] Social History Tobacco Use Types Packs/Day Years Used Date Smoking Tobacco: Every Day Cigarettes Smokeless Tobacco: Never Alcohol Use Standard Drinks/Week Comments Yes 0 (1 standard drink = 0.6 oz pur e alcohol) 10 nips daily Comments Unknown Sex and Gender Information Value Date Recorded Sex Assigned at Female 04/24/2019 5:31 PM EDT Legal Sex Female 10:35 PM EDT Gender Identity Female 04/24/2019 5:31 PM EDT Sexual Orientation Not on file documented as of this encounter Plan of Treatment Not on file documented as of this encounter Visit Diagnoses Not on filedocumented in this encounter Care Teams Civil Draftsman Relationship Specialty Start Date End Date Milagros Gutierrez MD [address] [place] [address] [place] [address] PCP - General Internal Medicine 04/24/19 documented as of this encounter Additional Source Comments The information contained in this document represents components of the legal health record. It is not the complete legal health record.[facility]
--- OUTSIDE RECORDS SUMMARY | 2025-02-25 12:18 | XMS_ITS | Patient Health Record ---
Author Organization [facility] Address [address] [place] [address] Care Team Providers Care Patient Relations Specialist Name Role Phone Milagros Gutierrze Primary Care Provider Unavailab Vidal Urias Unavailable [phone] DODIE LOTT Unavailable Unavailable Allergies Allergen (clinical [...] TAKE ONE CAPSULE BY MOUTH EVERY DAY Orally Once a day for 30 days Active Mirtazapine 30 MG TAKE 1&1/2 TABLETS [...] Problem Status W/U Status Risk Notes Problem 475223192 Gastro-esophagea l reflux disease without esophagitis (K21.9) Active confirmed Problem 12612580 Diarrhea (R19.7) Active confirmed Problem 925543424 Irritable bowel syndrome with diarrhea (K58.0) Active confirmed Problem 095256225 Generalized abdominal pain (R10.84) Active confirmed Problem 961922049 Gastroesophageal reflux disease, esophagitis presence not specified (K21.9) Active confirmed Problem 93367202 Alcoholic liver disease (K70.9) Active confirmed Problem Alcohol abuse (42220978) Alcohol abuse (F10.10) Active confirmed Problem 23248196 Diarrhea, unspecified type (R19.7) Active confirmed Problem 666197905 Abdominal pain, periumbilic (R10.33) Active confirmed Problem 036570789 Abdominal pain, diffuse (R10.84) Active confirmed Plan [...] AARP MEDI COMPLETE (REFERRAL REQUIRED) [address] [address] [place] [address] [id number] ALIYAH NEWSOME Self - patient is the insured MEDICARE OF [facility] [address] [place] [id number] ALIYAH NEWSOME Self - patient is the [...] as of the 07/09/2020 OV Depression Denies [place],DM,CVA,renal disease Ramona-Caro tear in 2006--UGI bleed-tr eated endoscopically asthma irritable bowel syndrome Colonoscopy 2017 with a hyperplastic chiara yp removed UGI bleed 03/2020-EGD with a Ramona-Keon s tear, gastric bx neg for Hpylori Surgical History Surgery Date(Month/Year) Cholecystectomy in 03/2011 Broken leg and wrist on the right in 2 Tonsillectomy Fractured heel 03/2015
== END 2025-02-25 12:00 | disposition home or self-care (01) ==
LOC: HO.HPS 11:15
PROVIDERS: PCP Internal Medicine; Visit Provider Internal Medicine
DX: J44.9 Chronic obstructive pulmonary disease, unspecified (principal); F17.210 Nicotine dependence, cigarettes, uncomplicated; F41.9 Anxiety disorder, unspecified
CPT/HCPCS: 94010; 99213

== ENCOUNTER → 2025-02-25 11:14 | Outpatient (BNVA) | payer MEDICARE, SELFPAY | PROVIDERS: PCP Internal Medicine; Visit Provider Internal Medicine | DX: J44.9 Chronic obstructive pulmonary disease, unspecified (principal); F17.210 Nicotine dependence, cigarettes, uncomplicated; F41.9 Anxiety disorder, unspecified | CPT/HCPCS: 94010; 99212 ==

== ENCOUNTER 2025-03-24 14:11 | Outpatient (REF) | payer MEDICARE, SELFPAY ==
--- NOTE | ~2025-03-24 | CT_ITS ---
EXAMINATION: CT LOW-DOSE SCREENING CHEST WITHOUT CONTRAST CLINICAL INFORMATION: 65-year-old female, current smoker, 52 pack years, lung cancer screening. COMPARISON: 03/03/2024, 12/15/2022. TECHNIQUE: Multidetector volumetric CT imaging of the chest is performed on a Siemens SOMATOM Definition scanner without contrast using low dose technique. Additional 2D coronal and sagittal reformatted images and axial 3D maximum intensity projection (MIP) images are generated on the CT workstation. This CT examination was performed using dose optimization techniques as appropriate, variously including the following: *Automated exposure control *Adjustment of mA and/or kV according to patient size (this includes techniques or standardized protocols for targeted exams where dose is matched to indication/reason for exam; i.e. extremities or head) *Use of iterative reconstruction technique FINDINGS: PULMONARY NODULES: There are stable 2 mm tiny calcified granulomata in the lingula and right middle lobe, unchanged. There is no new or enlarging pulmonary nodule. LUNGS: There is mild centrilobular emphysema with upper lobe predominance. There is mild thickening of the small airways suggesting chronic bronchitis. Lungs otherwise clear without abnormal opacity or interstitial abnormality. No effusion or pneumothorax. Central airways are patent and normal. MEDIASTINUM: No mediastinal, hilar or axillary adenopathy or free fluid collection. Normal thyroid. Normal aorta. Normal main pulmonary artery. CORONARY ARTERY CALCIFICATION: Mild three-vessel calcification. CHEST WALL/AXILLA: No mass or lymphadenopathy. UPPER ABDOMEN: Unremarkable. There has been a cholecystectomy. OSSEOUS STRUCTURES: No suspicious lytic or blastic bone lesion. CT/CT lung screening IMPRESSION: 1. No suspicious pulmonary nodules. There are 2 stable calcified 2 mm granulomata. 2. Mild emphysema and mild small airway thickening suggesting chronic proctitis. ASSESSMENT: 1. Lung-RADS Category 1: Negative. There are no nodules or there are definitely benign nodules. 2. Lung-RADS Category S: None. RECOMMENDATION: Continued routine annual low-dose CT lung screening in 1 year is recommended. An order for CT CHEST LOW DOSE CANCER SCREENING ([id number]) can be placed. Electronically signed by: Jonathan Barnett MD 03/24/2025 03:07 PM EDT
--- OUTSIDE RECORDS SUMMARY | 2025-03-24 15:34 | XMS_ITS | Patient Health Record ---
Author Organization [facility] Address [address] [place] [address] Care Team Providers Care Computed Tomography Scanner Operator Name Role Phone Milagros Gutierrez Primary Care Provider Unavailab Vidal Urias Unavailable [phone] DODIE LOTT Unavailable Unavailable Allergies Allergen (clinical [...] Problem Status W/U Status Risk Notes Problem 531758735 Gastro-esophagea l reflux disease without esophagitis (K21.9) Active confirmed Problem 64172558 Diarrhea (R19.7) Active confirmed Problem 127906066 Irritable bowel syndrome with diarrhea (K58.0) Active confirmed Problem 483789358 Generalized abdominal pain (R10.84) Active confirmed Problem 815934468 Gastroesophageal reflux disease, esophagitis presence not specified (K21.9) Active confirmed Problem 38948585 Alcoholic liver disease (K70.9) Active confirmed Problem Alcohol abuse (88600948) Alcohol abuse (F10.10) Active confirmed Problem 82833920 Diarrhea, unspecified type (R19.7) Active confirmed Problem 354392483 Abdominal pain, periumbilic (R10.33) Active confirmed Problem 059979310 Abdominal pain, diffuse (R10.84) Active confirmed Plan [...] AARP MEDI COMPLETE (REFERRAL REQUIRED) [address] [address] [place] [address] [id number] ALIYAH NEWSOME Self - patient is the insured MEDICARE OF [facility] [address] [place] [facility] [id number] ALIYAH NEWSOME Self - patient is the [...] as of the 07/09/2020 OV Depression Denies [place],DM,CVA,renal disease Ramona-Caro tear in 2006--UGI bleed-tr eated endoscopically asthma irritable bowel syndrome Colonoscopy 2017 with a hyperplastic chiara yp removed UGI bleed 03/2020-EGD with a Ramona-Keon s tear, gastric bx neg for Hpylori Surgical History Surgery Date(Month/Year) Cholecystectomy in 03/2011 Broken leg and wrist on the right in 2 Tonsillectomy Fractured heel 03/2015
--- OUTSIDE RECORDS SUMMARY | 2025-03-24 15:34 | XMS_ITS | Encounter Summary ---
Author Organization [facility] Address [address] [place] [address] Phone Care Team Providers Care Bird Raiser Name Role Phone Milagros Gutierrez MD Primary Care Provider Encounter Details Date Type Department Care Team (Late st Contact Info) Description 01/08/2020 Procedure Pass [facility], [address] [address] Social History Tobacco Use Types Packs/Day Years [...] on filedocumented in this encounter Care Teams Bird Raiser Relationship Specialty Start Date End Date Milagros Gutierrez MD [address] [place] [address] [place] [address] PCP - General Internal Medicine 04/24/19 documented as of this encounter Additional Source Comments The information contained in this document represents components of the legal health record. It is not the complete legal health record.[facility]
== END 2025-03-24 14:12 | disposition home or self-care (01) ==
LOC: HO.CT 14:11
PROVIDERS: PCP Internal Medicine; Visit Provider Physician Assistant Medical
DX: Z12.2 Encounter for screening for malignant neoplasm of respiratory organs (principal); F17.210 Nicotine dependence, cigarettes, uncomplicated
CPT/HCPCS: 71271

== ENCOUNTER → 2025-03-24 14:14 | Outpatient (BNV) | payer MEDICARE, SELFPAY | PROVIDERS: PCP Internal Medicine; Visit Provider Radiology Diagnostic Radiology | DX: F17.210 Nicotine dependence, cigarettes, uncomplicated (principal) | CPT/HCPCS: 71271 ==

== ENCOUNTER 2025-06-16 11:00 | Outpatient (AMB) | payer MEDICARE, SELFPAY ==
[2025-06-16 11:05] VITALS: BP 110/68; PULSE 76; O2SAT 98; BMI 22.5
--- NOTE | 2025-06-16 11:05 | A.OFFVIS_ITS ---
Vital Signs 06/16/25 11:05 Height 5 ft 4 in Weight 131 lb 2.801 oz BMI 22.5 BP 110/68 Blood Pressure Location Lt brachial Position Sitting Pulse 76 Pulse Source Pulse Oximeter Pulse Oximetry (%) 98 Oxygen Delivery Method Room Air Intake Visit Reasons: Shortness of breath Intake Note: pt is here for follow up and states her breathing is good some days and bad days at times, she is down to 3 cigarettes a day. Commercial Loan Administrator Required: No Boat Person: Boat Person offered & declined Allergies levofloxacin (From [employer]) Allergy (Unknown, Verified 06/16/25 11:18) THROAT SWELLS mushroom Adverse Reaction (Mild, Verified 06/16/25 11:18) STOMACH UPSET ALBUTEROL Adverse Reaction (Severe, Uncoded 06/16/25 11:18) Agitated Medication List - Last Reconciled 06/16/25 by Kimberly Piedra MD acetaminophen (Tylenol Extra Strength) 1,000 mg (2 x 500 mg) PO QID PRN ascorbic acid (vitamin C) (Vitamin C) 500 mg PO DAILY back brace As directed clonidine HCl 0.1 mg PO BID PRN fluticasone propion-salmeterol 230-21 mcg/actuation (Advair HFA) 2 puffs inhalation Q12H 30 days fluticasone propionate 50 mcg/actuation 1 spray intranasal BID folic acid 1 mg PO DAILY gabapentin 600 mg PO TID PRN hydroxyzine pamoate 50 mg PO TID PRN ipratropium bromide 17 mcg/actuation (Atrovent HFA) 2 puffs inhalation TID 30 days levalbuterol tartrate 45 mcg/actuation 2 puffs inhalation Q4-6H PRN 30 days losartan 50 mg PO DAILY meloxicam 15 mg PO DAILY nicotine 1 patch transdermal DAILY 28 days omeprazole 40 mg PO DAILY PRN thiamine HCl (vitamin B1) 100 mg PO DAILY trazodone 100 mg PO BEDTIME PRN vitamin B comp and C no.3 (B Complex Plus Vitamin C) 1 cap PO DAILY Do you need a note to return to daycare/school/sports/work: No HPI HPI Shortness of breath: Details: THIS 65 YEARS OLD FEMALE IS HERE FOR FOLLOW-UP. FOR HER COPD SHE DOES HAVE INTERMITTENT BOUTS OF COUGH AND SOME WHEEZING. OVERALL HAS BEEN STABLE. THERE IS STILL SOME CONFUSION ABOUT USING THE INHALERS. FOR SMOKING ,SHE IS DOWN TO 3 CIGARETTES A DAY. [facility] Medical History COPD exacerbation Acute upper respiratory infection Asthma-COPD overlap syndrome Osteopenia Nicotine dependence, cigarettes, uncomplicated COPD (chronic obstructive pulmonary disease) Sacroiliac joint pain Anxiety Depression Seasonal allergies Surgical History History of esophagogastroduodenoscopy (EGD) History of colonoscopy History of cholecystectomy History of surgery on lower extremity History of surgery on right wrist Social History Alcohol intake: current Alcohol intake frequency: 3 or more drinks per day Alcohol type: hard liquor Patient Tobacco Use Status: Current everyday Tobacco user Tobacco use type: Cigarette Cigarette Packs Per Day: 0.5 Cigarettes Per Day: 3 Years Smoked: (current smoker, onset 12, 1/2-1ppd x 50yrs, now 1/2ppd - 35+PYH) Current occupational status: retired Current occupation: rt handed Review of Systems Const All systems reviewed & are unremarkable except as noted in HPI and below Eyes Reports no additional complaints ENT Reports no additional complaints Card Denies chest pain, Denies irregular heart rhythm and Denies leg edema Resp Reports as per HPI GI Reports no additional complaints Reports no additional complaints Musc Reports back pain and Reports arthralgias (Pain off and on in the right leg and the wrist) Skin/Breast Reports system reviewed and no additional complaints, except as documented Neuro Reports no additional complaints Psych Reports anxiety Endo Reports no additional complaints Alexander/Lymph Reports no additional complaints Aller/Immun Reports no additional complaints Physical Exam Vital Signs: Last Vital Signs Pulse 76 06/16/25 11:05 BP 110/68 06/16/25 11:05 Pulse Ox 98 06/16/25 11:05 Oxygen Delivery Method Room Air 06/16/25 11:05 BMI result Body Mass Index 22.5 Const Other: Acutely sick looking, and weak. General: comfortable, no acute distress, alert and awake Orientation/consciousness: patient oriented x3 HEENT Other: Has reddish streaks on both sides of the pharynx, Also has moderate nasal congestion. Head: Yes normal to inspection General nose exam: No nasal polyps present and No nasal discharge present Face and sinus: Yes sinuses nontender Mouth: oropharynx normal Throat: Yes posterior oropharynx normal Eyes General: appearance normal, both eyes and all related structures Neck Neck: Yes normal visual inspection, Yes no lymphadenopathy, Yes trachea midline and Yes no JVD Thyroid: Thyroid normal Chest Chest palpation & inspection: normal inspection of the chest, normal palpation of entire chest wall and no tenderness Resp Other: Percussion note is resonant, breath sounds are moderately distant, Does have a few scattered wheezes .. Cardio Palpation: normal PMI Rate: regular rate Rhythm: regular rhythm Heart sounds: no gallops and no murmurs GI Palpation (GI): Soft to palpation, nontender, No hepatosplenomegaly present and no masses Auscultation: normal bowel sounds Back/Spine/Pelvis Thoracic/Lumbar Spine: thoracic and lumbar spine normal to inspection and thoraco-lumbar ROM limited Skin General skin exam: no rashes or lesions noted Neuro General: patient oriented x3 and no focal motor deficits Cranial nerves: Yes CN's II-XII intact bilaterally Extrem General: Yes normal to inspection, Yes no clubbing, cyanosis or edema and Yes no calf tenderness Psych Appearance: grossly normal and well kempt Speech and movement: Normal speech and movement present Assessment & Plan Assessment & Plan (1) Asthma-COPD overlap syndrome: Comment: PER PULMONARY FUNCTION TEST LAST YEAR SHE DOES HAVE SEVERE OBSTRUCTIVE AIRWAY DISORDER WITH SOME RESPONSE TO BRONCHODILATOR THERAPY(ACOS SHE STILL SMOKES THOUGH SHE HAS CUT DOWN THE CIGARETTES TO 3 PER DAY, SHE REMAINS SYMPTOMATIC, SHE IS SLIGHTLY CONFUSED ABOUT THE INHALERS. CURRENTLY NOT USING ADVAIR . Code(s): J44.9 - Chronic obstructive pulmonary disease, unspecified Category: Medical Plan: ADVISED THAT SHE SHOULD USE FLUTICASONE-SALMETEROL ( ADVAIR HFA) 230-21 2 PUFFS B.I.D. REGULARLY. IPRATROPIUM BROMIDE INHALER. TWO PUFFS T.I.D. REGULARLY ( THIS IS IN PLACE OF INCRUSE ELLIPTA OR SPIRIVA RESPIMAT , NOT COVERED BY INSURANCE) LEVALBUTEROL TARTRATE -45 2 PUFFS Q 4-6 HOURS P.R.N. HAS RESCUE INHALER . (2) Nicotine dependence, cigarettes, uncomplicated: Comment: (current smoker, onset 12, 1/2-1ppd x 50yrs, now 1/2ppd - 35+PYH) Continues to smoke has cut down to 3 cigarettes a day. Code(s): F17.210 - Nicotine dependence, cigarettes, uncomplicated Category: Medical Plan: TALKED TO HER ABOUT SMOKING AND NEED TO QUIT COMPLETELY. IN THE MEANTIME CONTINUE ANNUAL LUNG SCREENING . (3) Anxiety: Comment: SHE HAS GENERALIZED ANXIETY SYNDROME, IT SEEMS TO BE CONTROLLED BETTER THAN BEFORE. DOES NOT WANT TO USE ANY ANXIOLYTIC AGENTS. Code(s): F41.9 - Anxiety disorder, unspecified Category: Medical Plan: REASSURED AND EDUCATED ABOUT HER LUNG DISEASE AND USE OF MEDICATIONS. SHE FEELS MORE RELAXED. Coding Level of Care Code Est Pt Level 3 (99696) Diagnoses Asthma-COPD overlap syndrome J44.9 Nicotine dependence, cigarettes, uncomplicated F17.210 Anxiety F41.9
--- OUTSIDE RECORDS SUMMARY | 2025-06-16 13:10 | XMS_ITS | Clinical Summary ---
Author Organization [facility] Address [address] [place] [address] Phone Care Team Providers Care Forging Press Lever Tender Name Role Phone Milagros Gutierrez MD Primary Care Provider Allergies Active Allergy Reactions Criticality Noted Date Comments Cephalexin Unknown 07/17/2020 Levofloxacin 04/24/2019 Mushroom 04/24/2019 Medications prazosin (MINIPRESS) 2 MG capsule Take 4 mg by mouth nightly at bedtime. Active PROAIR HFA 90 mcg/actuation inhaler INHALE ONE PUFF BY MOUTH FOUR TIMES A DAY 5 9 Active FLOVENT HFA 110 mcg/actuation inhaler INHALE TWO PUFFS BY MOUTH TWICE A DAY 5 9 Active hydrOXYzine (VISTARIL) 25 MG capsule TAKE 1-2 CAPSULES BY MOUTH THREE TIMES A DAY NEEDED FOR ANXIETY 1 9 Active traZODone (DESYREL) 50 MG tablet TAKE 1-2 TABLETS BY MOUTH AT BEDTIME 1 9 Active mirtazapine (REMERON) 30 MG tablet Take 15 mg by mouth nightly at bedtime. 1 9 Active thiamine (VITAMIN B-1) 100 mg Tab tablet Take 2 tablets (200 mg total) by mouth daily. 30 tablet 0 Active nicotine (NICODERM CQ) 21 mg/[address] 1 patch onto the skin once as needed (craving). 14 patch 0 Active Additional Information Patient not taking.Reported on 03/05/2022 hydrALAZINE (APRESOLINE) 25 MG tablet Take 1 tablet (25 mg total) by mouth every 8 (eight) hours. 42 tablet 0 Active vit B complex no.12/niacin,B3 , (VITAMIN B COMPLEX NO.12-NIACIN ORAL) Active cholecalciferol , vitamin D3, (VITAMIN D3) 10 mcg (400 unit) capsule Active multivitamins-m inerals-folic dord-zbquntc-sm tein (COMPLETE SENIOR) 0.4 mg-300 mcg- 250 mcg Tab Active diphenhydrAMINE (BENADRYL) 25 mg capsule Active busPIRone (BUSPAR) 10 MG tablet Take 10 mg by mouth 2 (two) times a day. 2 Active cloNIDine HCL (CATAPRES) 0.1 MG tablet 2 Active ondansetron (ZOFRAN) 4 MG tablet Take 1 tablet by mouth every 6 (six) hours as needed. Active valACYclovir (VALTREX) 1000 MG tablet Take 1,000 mg by mouth 3 (three) times a day. 2 Active fluticasone propionate (FLONASE) 50 mcg/actuation nasal spray SPRAY ONE SPRAY INTO EACH NOSTRIL TWICE A DAY 2 Active gabapentin (NEURONTIN) 300 MG capsule Take 1 capsule by mouth 3 (three) times a day. Active gabapentin (NEURONTIN) 600 MG tablet Take 600 mg by mouth 3 (three) times a day. 2 Active omeprazole (PRILOSEC) 40 MG capsule 1 2 Active Active Problems Problem Noted Date Diagnosed Date Alcohol abuse 03/05/2022 Alcoholic liver disease 03/05/2022 Gastro-esophageal reflux disease without esophag itis 03/05/2022 Irritable bowel syndrome with diarrhea 2 Left wrist pain 01/08/2020 Assessment & Plan (01/08/2020 11:40 AM EDT): - xray left thumb, hand, wrist - discussed with ortho - will request consult - has a number of superficial wounds, seen by wound, some wounds not clean, more than 5 years from last tetanus so tetanus was ordered yesterday Word finding difficulty 01/08/2020 Assessment & Plan (01/08/2020 11:39 AM EDT): - had head CT, was ok, check MRI and speech consult Alcohol withdrawal syndrome with complication Assessment & Plan (01/08/2020 11:37 AM EDT): - cont phenobarb - cont thiamine, folate, mvi - SW consult - vistaril for anxiety - significant htn, seems withdrawal and anxiety could be contributing, add additional prn hydralazine Prolonged QT interval 2020 Assessment & Plan (01/07/2020 4:47 PM EDT): - monitoring on tele and repleting KCL Alcohol withdrawal, uncomplicated 04/25/2019 Assessment & Plan (04/26/2019 11:32 AM EDT): Patient has active alcohol use. She presented to the ED with nausea vomiting diarrhea. Due to history of alcohol withdrawal with seizures she was started on phenobarbital. Social work consulted regarding alcohol abuse, Patient improved maybe discharge tomorrow if stable Costochondritis 04/25/2019 Assessment & Plan (04/26/2019 11:28 AM EDT): Patient has complaint of chest pain and upper abdominal pain most likely due to nausea vomiting as well as alcohol abuse.. No work-up planned. Pain medicine as needed. PPI also ordered. Today she has improved PTSD (post-traumatic stress disorder) 04/25/2019 Assessment & Plan (01/07/2020 4:46 PM EDT): - cont home meds, holding clonazepam while on phenobarbital Assessment & Plan (04/26/2019 11:31 AM EDT): We will continue prazosin and Remeron. Patient would benefit from having a counselor and psychiatrist. [facility] On gabapentin for chronic pain due to prior fractures Fever 04/25/2019 Assessment & Plan (04/26/2019 11:30 AM EDT): Patient has had fever in the hospital and she has leukocytosis. She did not have leukocytosis when she presented to the ED. She just had a chest x-ray that was negative and she has no symptoms of dysuria. So far stool studies are negative. No antibiotics for now but will consider antibiotics if she develops sepsis continues to have fever Tobacco dependence Assessment & Plan (04/25/2019 4:28 PM EDT): Tobacco cessation encouraged. Patch ordered can also have gum Resolved Problems Problem Noted Date Diagnosed Date Resolved Date Hypokalemia 2020 01/09/2020 Assessment & Plan (01/08/2020 11:38 AM EDT): In the setting of ongoing diarrhea - maybe poor oral intake d/t alcoholism - improved to 3.7 - given 40 meq today - mag level ok - cont tele Diarrhea 04/25/2019 01/09/2020 Assessment & Plan (01/08/2020 11:37 AM EDT): - seems improving, cdiff study pending Assessment & Plan (04/26/2019 11:29 AM EDT): Patient came to the ED with nausea vomiting diarrhea. The vomiting has not been present in the hospital so far, now diarrhea is resolved Immunizations Immunization Administration Dates Next Due INFLUENZA, SPLIT VIRUS, TRIV ALENT W/ PRESERVATIVE IM 04/06/2020 Influenza Quadrivalent MDCK Preservative Free IM 06/15/2021,05/10/2020 Influenza Quadrivalent Prese rvative Free IM 04/27/2019(Deferred: Patient Refused - will take at PCP) Pneumococcal conjugate PCV13 04/28/2016 Pneumococcal polysaccharide PPSV23 06/15/2021, Tdap 01/08/2020 Zoster recombinant 01/03/2018,10/31/2017 Family History Medical History Relation Comments Stomach cancer Father COPD Mother Relation Status Comments Father Mother Social History Tobacco Use Types Packs/Day Years Used Date Smoking Tobacco: Every Day Cigarettes Smokeless Tobacco: Never Tobacco Cessation:Ready to Q uit: No; Counseling Given: Yes Alcohol Use Standard Drinks/Week Comments Yes 0 (1 standard drink = 0.6 oz pur e alcohol) 10 nips daily Education Answer Date Recorded Are you interested in more education? Not on romaine e 12/01/2022 Are you concerned about learning? Not on file 12/01/2022 No 12/01/2022 No 12/01/2022 Digital Access Answer Date Recorded No 12/30/2022 No 12/30/2022 No 12/30/2022 Reliable internet access at home? Not on file 12/30/2022 Device with a working camera? Not on file Comments Unknown Sex and Gender Information Value Date Recorded Sex Assigned at Female 04/24/2019 5:31 PM EDT Legal Sex Female 10:35 PM EDT Gender Identity Female 04/24/2019 5:31 PM EDT Sexual Orientation Not on file Last Filed Vital Signs Vital Sign Reading Time Taken Comments Blood Pressure 119/82 03/05/2022 10:23 AM EDT Pulse 89 03/05/2022 10:23 AM EDT Temperature 36.8 C (98.2 F) 03/05/2022 10:23 AM EDT Respiratory Rate 16 03/05/2022 10:23 AM EDT Oxygen Saturation 98% 03/05/2022 10:23 AM EDT Inhaled Oxygen Concentration - - Weight 64.4 kg (142 lb) 03/05/2022 10:23 AM EDT Height 162.6 cm (5' 4 ) 03/05/2022 10:23 AM EDT Body Mass Index 24.37 03/05/2022 10:23 AM EDT Plan of Treatment Health Maintenance Due Date Last Done Comments LIPID PANEL 1959 DEPRESSION SCREENING 1971 SMOKING Hx and SMOKELESS TOBACCO SCREENING 01/07/1972 HEPATITIS C SCREENING 1977 HEPATITIS A VACCINES (1 of 2 - Risk 2-dose series) 1978 MAMMOGRAM 1999 COLOGUARD 01/07/2004 COLONOSCOPY 01/07/2004 FIT TEST 01/07/2004 SIGMOIDOSCOPY 01/07/2004 VIRTUAL COLONOSCOPY 01/07/2004 RSV VACCINE (1 - Risk 50-74 years 1-dose series) 2009 COLORECTAL CANCER SCREENING 04/24/2020 FOBT 04/24/2020 04/24/2019 OSTEOPOROSIS SCREENING INITI AL (ONE-TIME) 01/07/2024 INFLUENZA VACCINE (#1) 2025 1, 05/10/2020, 04/06/2020 COVID-19 VACCINE (4 - 2024-2 6 season) 2025 08/03/2021, 01/05/2021, 12/08/2020 PNEUMOCOCCAL VACCINES (50+ years) (3 of 3 - PCV20 or PCV21) 06/15/2026 06/15/2021, 05/19/2017, 04/28/2016 Adult Td,Tdap Booster 01/07/2030 01/08/2020 ZOSTER VACCINES Completed 01/03/2018, 10/31/2017 HIB VACCINES Aged Out No longer eligi ble based on patient's age to complete this topic MENINGOCOCCAL VACCINES (ACWY) Aged Out No longer eligible based on patient's age to complete this topic MENINGOCOCCAL VACCINES (B) Aged Out N o longer eligible based on patient's age to complete this topic Medical Devices Implanted Type Area Parole Hearing Officer Device Identifier Shelf Expiration Date Model / Serial / Lot Plate Plate Juan Luis Juan Luis Procedures Procedure Name Priority Date/Time Associated Diagnosis Comments FECAL OCCULT BLOOD, MULTIPLE STAT 04/24/2019 10:45 PM EDT from Last 3 Months or Most Recently Relevant to Health Maintenance Results * Fecal occult blood, multiple (04/24/2019 10:45 PM EDT) FECAL OCC BLD 1 DATE 91,919 [facility] Occult bld, stool, #1 Negative Negative [facility] Stool (Stool) 04/24/2019 10: 45 PM EDT 04/25/2019 12:14 AM EDT us Geni Jang PA-C BODY FLUIDS AND STOOLS OR DERABLES Final Result [facility] [address] [place] [address] from Last 3 Months or Most Recently Relevant to Health Maintenance Insurance [facility] AARP MEDICARE REPLACEMENT Member Subscriber Plan / Payer (Ef fective 2019-Present) Name:JustinAvani Relation to Subscriber:Self Name:JustinAvani Payer ID:[id number] (NAIC) Type:Medicare Address: [address] SAFET[employer] NET PARTIAL MEDICARE PART A & [place] [address] MEDICARE REPLACEMENT Member Subscriber Plan / Payer (Ef fective 2019-Present) Name:Avani Anderson Relation to Subscriber:Self Name:Avani Anderson Payer ID:[id number] (NAIC) Type:Medicare Address: [address] NET PARTIAL MEDICARE PART A & [place] [address] MEDICARE REPLACEMENT [facility] PARTIAL MEDICARE PART A & B [facility] MEDICARE REPLACEMENT PARTIAL MEDICARE PART A & B [facility] MEDICARE REPLACEMENT HEALTH SAFETY NET PARTIAL MEDICARE PART A & B MEDICARE REPLACEMENT HEALTH SAFETY NET PARTIAL MEDICARE PART A & B Member Subscriber Plan / Payer (Ef fective 2022-Present) Name:Avani Anderson Member ID:[id number] Relation to Subscriber:Self Name:Avani Anderson Subscriber ID:[id number] Payer ID:[id number] Group ID:Not on file Type:Medicare Address: [address] [place] [phone] [facility] MEDICARE REPLACEMENT Member Subscriber Plan / Payer (Ef fective 2019-Present) Name:Justin Avani Relation to Subscriber:Self Name:Avani Anderson Payer ID:[id number] (NAIC) Type:Medicare Address: [address] PARTIAL MEDICARE PART A & B Member Subscriber Plan / Payer (Ef fective 2022-Present) Name:Avani Anderson Member ID:[id number] Relation to Subscriber:Self Name:Justin Avani Subscriber ID:[id number] Payer ID:[id number] Group ID:Not on file Type:Medicare Address: [address] [facility] MEDICARE REPLACEMENT Member Subscriber Plan / Payer (Ef fective 2019-Present) Name:JustinAvani Relation to Subscriber:Self Name:JustinAvani Payer ID:[id number] (NAIC) Type:Medicare Address: [address] SAFETY NET PARTIAL MEDICARE PART A & B MEDICARE REPLACEMENT HEALTH SAFETY NET PARTIAL [place] [id number] Advance Directives For more information, please contact: [phone] (9AM - 5PM [facility], Sunday-Sunday) * Full Code (Confirmed) (Latest Code Status on File) Date Activated Date Inactivated Comments 2020 6:41 PM Question Answer Comments Code Status Confirmed With: Patient * Full Code (Confirmed) Date Activated Date Inactivated Comments 04/25/2019 2:20 AM 04/27/2019 4:25 PM Question Answer Comments Code Status Confirmed With: Patient Care Teams Forging Press Lever Tender Relationship Specialty Start Date End Date Milagros Gutierrez MD [address] [place] [address] [place] [address] PCP - General Internal Medicine 04/24/19 Additional Source Comments The information contained in this document represents components of the legal health record. It is not the complete legal health record.[facility]
--- OUTSIDE RECORDS SUMMARY | 2025-06-16 13:10 | XMS_ITS | Encounter Summary ---
Author Organization [facility] Address [address] [place] [address] Phone Care Team Providers Care Contract Paralegal Name Role Phone Milagros Gutierrez MD Primary Care Provider Encounter Details Date Type Department Care Team (Late st Contact Info) Description 01/08/2020 Procedure Pass [facility], [address] [address] Social History Tobacco Use Types Packs/Day Years [...] on filedocumented in this encounter Care Teams Contract Paralegal Relationship Specialty Start Date End Date Milagros Gutierrez MD [address] [place] [address] [place] [address] PCP - General Internal Medicine 04/24/19 documented as of this encounter Additional Source Comments The information contained in this document represents components of the legal health record. It is not the complete legal health record.[facility]
--- OUTSIDE RECORDS SUMMARY | 2025-06-16 13:10 | XMS_ITS | Patient Health Record ---
Author Organization [facility] Address [address] [place] [address] Care Team Providers Care Steel Pourer Helper Name Role Phone Milagros Gutierrez Primary Care Provider Unavailab Vidal Urias Unavailable [phone] DODIE LOTT Unavailable Unavailable Allergies Allergen (clinical [...] MOUTH EVERY 6 HOURS NEEDED FOR ABDOMINAL CRAMPS/DISCOMFORT; Duration: 30 Active Tylenol 800 mg as needed for pain Active Diphenhydramine Acti ve Albuterol Sulfate HFA 108 (9 0 Base) MCG/ACT 2 puffs as needed Inhalation every 4 hrs Active Prazosin HCl 2 MG TAKE 1-2 CAPSULES BY MOUTH AT BEDTIME Oral; Duration: 30 Active Gabapentin 300 MG TAKE ONE CAPSULE BY MOUTH THREE TIMES A DAY Oral; Duration: 30 Active Ondansetron HCl 4 MG TAKE ONE TABLET BY MOUTH EVERY 6 HOURS NEEDED FOR NAUSEA; Duration: 5 Active Omeprazole 40 MG TAKE ONE CAPSULE BY MOUTH EVERY DAY Orally Once a day; Duration: 30 days Active Mirtazapine 30 MG TAKE 1&1/2 TABLETS B Y MOUTH AT BEDTIME Oral; Duration: 30 Active Centrum Silver Activ e Omeprazole 20 MG 1 Orally BID; Durati on: 30 day(s) 04/19/2020 Active Vitamin B 12 [...] Problem Status W/U Status Risk Notes Problem Gastro-esophageal reflux disease without esophagitis (404234736) Gastro-esophageal reflux disease without esophagitis (K21.9) Active confirmed Problem Diarrhea (17742935) Diarrhea (R19.7) Active con firmed Problem Irritable bowel syndrome with diarrhea (813798741) Irritable bowel syndrome with diarrhea (K58.0) Active confirmed Problem Generalized abdominal pain (877717048) Generalized abdominal pain (R10.84) Active confirmed Problem Gastroesophageal reflux disease (619217867) Gastroesophageal reflux disease, esophagitis presence not specified (K21.9) Active confirmed Problem Alcoholic liver disease (45086140) Alcoholic liver disease (K70.9) Active confirmed Problem Alcohol abuse (14702765) Alcohol abuse (F10.10) Active confirmed Problem Diarrhea (35815082) Diarrhea, unspecified type (R19.7) Active confirmed Problem Periumbilical pain (968983664) Abdominal pain, periumbilic (R10.33) Active confirmed Problem Generalized abdominal pain (471106770) Abdominal pain, diffuse (R10.84) Active confirmed Plan [...] AARP MEDI COMPLETE (REFERRAL REQUIRED) [address] [address] [place] [address] [id number] ALIYAH NEWSOME Self - patient is the insured MEDICARE [facility] [address] [place] [address] [id number] ALIYAH NEWSOME Self - patient is the [...] as of the 07/09/2020 OV Depression Denies RI,DM,CVA,renal disease Ramona-Caro tear in 2006--UGI bleed-tr eated endoscopically asthma irritable bowel syndrome Colonoscopy 2017 with a hyperplastic chiara yp removed UGI bleed 03/2020-EGD with a Ramona-Keon s tear, gastric bx neg for Hpylori Surgical History Surgery Date(Month/Year) Cholecystectomy in 03/2011 Broken leg and wrist on the right in 201 2 Tonsillectomy Fractured heel 03/2015
--- OUTSIDE RECORDS SUMMARY | 2025-06-16 13:10 | XMS_ITS | Encounter Summary ---
Author Organization [facility] Address [address] [place] [address] Phone Care Team Providers Care Sweatband Maker Name Role Phone Milagros Gutierrez MD Primary Care Provider Encounter Details Date Type Department Care Team (Late st Contact Info) Description 2020 Procedure Pass [facility], Ct Scan - [address] [address] Social History Tobacco Use Types Packs/Day Years [...] on file documented as of this encounter Functional Status documented as of this encounter Plan of Treatment Not on file documented as of this encounter Visit Diagnoses Not on filedocumented in this encounter Additional Health Concerns Infection Onset Date Last Indicated Resolved Time CoV-Risk 2020 2020 2020 6:47 PM EDT documented as of this encounter Care Teams Sweatband Maker Relationship Specialty Start Date End Date Milagros Gutierrez MD [address] [place] [address] [place] [phone] PCP - General Internal Medicine 04/24/19 documented as of this encounter Additional Source Comments The information contained in this document represents components of the legal health record. It is not the complete legal health record.[facility]
== END 2025-06-16 11:29 | disposition home or self-care (01) ==
LOC: HO.HPS 11:01
PROVIDERS: PCP Internal Medicine; Visit Provider Internal Medicine
DX: J44.9 Chronic obstructive pulmonary disease, unspecified (principal); F17.210 Nicotine dependence, cigarettes, uncomplicated; F41.9 Anxiety disorder, unspecified
CPT/HCPCS: 99213

== ENCOUNTER → 2025-06-16 11:00 | Outpatient (BNVA) | payer MEDICARE, SELFPAY | PROVIDERS: PCP Internal Medicine; Visit Provider Internal Medicine | DX: J44.89 Other specified chronic obstructive pulmonary disease (principal); F17.210 Nicotine dependence, cigarettes, uncomplicated; F41.9 Anxiety disorder, unspecified | CPT/HCPCS: 99212 ==

== ENCOUNTER → 2025-07-20 11:30 | Outpatient (BNV) | payer MEDICARE, SELFPAY | PROVIDERS: Visit Provider Internal Medicine | DX: Z12.31 Encounter for screening mammogram for malignant neoplasm of breast (principal) | CPT/HCPCS: 77063; 77067 ==

== ENCOUNTER 2025-07-20 11:40 | Outpatient (REF) | payer MEDICARE, SELFPAY ==
--- NOTE | ~2025-07-20 | MM_ITS ---
EXAMINATION: MM SCREENING DIGITAL BREAST TOMOSYNTHESIS, BILATERAL CLINICAL INFORMATION: Screening. Asymptomatic. COMPARISON: Mammography: Comparison is made with available priors TECHNIQUE: Digital breast mammography with tomosynthesis is performed in both the craniocaudal and mediolateral oblique views along with computer-aided detection (CAD). FINDINGS: The breasts are heterogeneously dense, which may obscure small masses. There are no significant masses, abnormal calcifications, or other abnormalities. MM/MM tomosynthesis screening BI IMPRESSION: No mammographic evidence of malignancy. ASSESSMENT: BI-RADS Category 1: Negative RECOMMENDATION: Routine annual mammography screening. 1 year F/U This examination should not preclude the clinical evaluation of a suspicious palpable abnormality. This patient's information was entered into a reminder system with a target due date for their next mammogram. Electronically signed by: Marcela Lay DO 07/22/2025 04:56 PM CHRISTOPHER
== END 2025-07-20 11:41 | disposition home or self-care (01) ==
LOC: HO.MAMMO 11:40
PROVIDERS: Visit Provider Internal Medicine
DX: Z12.31 Encounter for screening mammogram for malignant neoplasm of breast (principal)
CPT/HCPCS: 77063; 77067